=== PATIENT | female | born 1975 | race Caucasian/White ===

== ENCOUNTER 2019-07-12 16:06 | Emergency (ER) | payer MEDICARE, MEDICAID ==
[~2019-07-12] VITALS: Ht 175 cm; Wt 159.0 kg
[2019-07-12 16:41] LABS: CLARITY,URINE CLEAR; COLOR,URINE AMBER; GLUCOSE, URINE (UA) NEGATIVE (NEGATIVE); KETONES,URINE NEGATIVE (NEGATIVE); LEUKOCYTE ESTERASE ,URINE 1+ (NEGATIVE); NITRITE,URINE NEGATIVE (NEGATIVE); PH,URINE 5 (5-9); PROTEIN,URINE 1+ (NEGATIVE); UROBILINOGEN,URINE 8 MG/DL (NORMAL)
[2019-07-12] MEDS ORDERED: ORPHENADRINE 60 MG/2 ML (NORFLEX) AMP IM ONE (16:45)
[2019-07-12] MEDS ORDERED: KETOROLAC 30 MG/ML VIAL IM ONE (16:45)
[2019-07-12 16:49] LABS: BILIRUBIN,URINE 1+ (NEGATIVE)
[2019-07-12 16:50] LABS: BACTERIA,URINE NEGATIVE /HPF; WBC,URINE 0-2 /HPF
--- NOTE | 2019-07-12 16:56 | NUR ---
Both IM shots administered in the left delt per pts request.
--- NOTE | 2019-07-12 17:17 | ED Back Pain ---
General Chief Complaint: Back Problems Stated Complaint: BACK PAIN Nursing Triage Note: Pt to triage with C/O lower back pain that started today. Pt reports taking ibuprofen and tylenol for the pain, pain unrelieved. Pt has Hx of kidney stones and several back surgeries. Pt denies any trouble/burning urination. Nursing Sepsis Screen: No Definite Risk Source of Information: Patient Exam Limitations: No Limitations History of Present Illness Date Seen by Provider: Jul 12, 2019 Time Seen by Provider: 16:32 Initial Comments This 44-year-old woman presents to the emergency room with complaints of exacerbation of chronic lower back pain and headache. She has had multiple spine surgeries. Pain is in the lower back. She denies any bowel or bladder dysfunction. She is ambulatory. She reports being able to come off pain medications about 5 years ago when she lost weight with lap band. She has tried Tylenol and ibuprofen at home without any significant improvement in pain. She currently has no primary care provider. Allergies and Home Medications Allergies Coded Allergies: Iodinated Contrast Media (Verified Allergy, Unknown, 07/12/19) aspirin (Verified Allergy, Unknown, 07/12/19) clindamycin (Verified Allergy, Unknown, 07/12/19) Home Medications Cyclobenzaprine HCl 10 Mg Tablet, 10 MG PO Q8H PRN for SPASMS Prescribed by: AMAN DRISCOLL on 07/12/19 1724 Hydrocodone Bit/Acetaminophen 1 Tab Tab, 1 EACH PO Q4-6HR PRN for PAIN-MODERATE Prescribed by: AMAN DRISCOLL on 07/12/19 1724 Patient Home Medication List Home Medication List Reviewed: Yes Review of Systems Constitutional: no symptoms reported EENTM: no symptoms reported Respiratory: no symptoms reported Cardiovascular: no symptoms reported Gastrointestinal: no symptoms reported Genitourinary: no symptoms reported : No Musculoskeletal: see HPI Skin: no symptoms reported Psychiatric/Neurological: No Symptoms Reported Past Lylkhhl-Vrytct-Uvvawj Hx Past Med/Social Hx: Reviewed and Corrections made Patient Social History Alcohol Use: Denies Use Recreational Drug Use: No Smoking Status: Former Smoker Type Used: Cigarettes Former Smoker, Quit: March 01, 2017 2nd Hand Smoke Exposure: No Recent Foreign Travel: No Contact w/Someone Who Travel: No Recent Infectious Disease Expo: No Recent Hopitalizations: No Physical Abuse: No Sexual Abuse: No Mistreated: No Fear: No Seasonal Allergies Seasonal Allergies: No Past Medical History Surgeries: Yes Abdominal (lap band), Section, Ear Surgery, Gallbladder, Orthopedic (multiple spine surgeries, debridement of operative site infection), Tonsillectomy Respiratory: No Cardiac: No Neurological: No Genitourinary: Yes Kidney Stones Gastrointestinal: No Musculoskeletal: Yes Chronic Back Pain Endocrine: No HEENT: No Cancer: No Psychosocial: No Integumentary: No Blood Disorders: No Physical Exam Vital Signs Vital Signs - First Documented 07/12/19 16:21 Temp 36.9 Pulse 110 Resp 18 B/P (MAP) 190/128 (148) Pulse Ox 98 O2 Delivery Room Air Capillary Refill : Less Than 3 Seconds Height, Weight, BMI Height: '" Weight: lbs. oz. 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 Norm as Tested Skin: Normal Color, Warm/Dry Progress/Results/Core Measures Results/Orders Lab Results Laboratory Tests Test 07/12/19 16:19 Range/Units Urine Color TRACY H Urine Clarity CLEAR Urine pH 5 5-9 Urine Specific [place] 1.020 1.016-1.022 Urine Protein 1+ H NEGATIVE Urine Glucose (UA) NEGATIVE NEGATIVE Urine Ketones NEGATIVE NEGATIVE Urine Nitrite NEGATIVE NEGATIVE Urine Bilirubin 1+ H NEGATIVE Urine Urobilinogen 8 H NORMAL MG/DL Urine Leukocyte Esterase 1+ H NEGATIVE Urine RBC (Auto) NEGATIVE NEGATIVE Urine RBC NONE /HPF Urine WBC 0-2 /HPF Urine Squamous Epithelial Cells 2-5 /HPF Urine Crystals NONE /LPF Urine Bacteria NEGATIVE /HPF Urine Casts NONE /LPF Urine Mucus SMALL H /LPF Urine Culture Indicated NO My Orders Orders - AMAN ROBERTSON MD Ua Culture If Indicated (07/12/19 16:32) Ketorolac Injection (Toradol Injection) (07/12/19 16:45) Orphenadrine Injection (Norflex Injectio (07/12/19 16:45) Methylprednisolone Acetate Inj (Depo-Med (07/12/19 17:30) Hydrocodone/Apap 5/325 Tablet (Lortab 5 (07/12/19 17:30) Medications Given in ED Current Medications Medications Dose Ordered Sig/Onel Route Start Time Stop Time Status Last Admin Dose Admin Acetaminophen/ Hydrocodone Bitart 1 tab ONCE ONCE PO 07/12/19 17:30 07/12/19 17:31 DC 07/12/19 17:35 1 TAB Ketorolac Tromethamine 30 mg ONCE ONCE IM 07/12/19 16:45 07/12/19 16:46 DC 07/12/19 16:56 30 MG Methylprednisolone Acetate 80 mg ONCE ONCE IM 07/12/19 17:30 07/12/19 17:31 DC 07/12/19 17:36 80 MG Orphenadrine Citrate 30 mg ONCE ONCE IM 07/12/19 16:45 07/12/19 16:46 DC 07/12/19 16:55 30 MG Vital Signs/I&O 07/12/19 07/12/19 16:21 17:38 Temp 36.9 36.9 Pulse 110 110 Resp 18 18 B/P (MAP) 190/128 (148) 190/128 (148) Pulse Ox 98 98 O2 Delivery Room Air Blood Pressure Mean: 148 Progress Progress Note : Progress Note Patient was treated with Toradol and Norflex with some improvement. She reports muscle relaxers have worked fairly well for her in the past. She is reluctant to take prednisone due to history of stomach upset with prednisone use. She elects to have a steroid injection instead. Depo-Medrol 80 mg IM was administered. A hydrocodone tablet was given before dismissal for further treatment of her pain. See discharge instructions. Departure Impression Primary Impression: Lower back pain Qualified Codes: M54.5 - Low back pain Disposition: 01 HOME, SELF-CARE Condition: Improved Departure-Patient Inst. Decision time for Depature: 17:22 Referrals: NO,LOCAL PHYSICIAN (PCP/Family) Primary Care Physician Patient Instructions: Low Back Pain in Adults Add. Discharge Instructions: You may continue using ibuprofen up to 600 mg every 6 hours as needed for primary pain control. Take with food or milk and possibly an antacid medication such as omeprazole or Pepcid to prevent stomach irritation. Use the minimal amount necessary to treat your acute pain. Excessive or prolonged use of ibuprofen may cause serious stomach irritation. Add either hydrocodone or Tylenol for pain not controlled by ibuprofen. You may use cyclobenzaprine as prescribed for muscle tension or spasms. Follow-up with a primary care provider and/or your spine surgeon as soon as possible Gentle heat on your lower back may help your muscles relax. Work toward weight loss to reduce strain on your back. Return to the emergency room promptly if you develop worsening symptoms that may include weakness of the legs, numbness in your groin, loss of control of your bowels or bladder, or pain not controlled by the above treatment. All discharge instructions reviewed with patient and/or family. Voiced understanding. Scripts Cyclobenzaprine HCl (Cyclobenzaprine HCl) 10 Mg Tablet 10 MG PO Q8H PRN for SPASMS, #10 TAB 0 Refills Prov: AMAN ROBERTSON MD 07/12/19 Hydrocodone Bit/Acetaminophen (Hydrocodone/Acetaminophen 5/325mg Tablet) 1 Tab Tab 1 EACH PO Q4-6HR PRN for PAIN-MODERATE MDD 10, #10 TAB Prov: AMAN ROBERTSON MD 07/12/19 AMAN ROBERTSON MD Jul 12, 2019 17:17
[2019-07-12] MEDS ORDERED: CYCL10TA9 PO (17:24)
[2019-07-12] MEDS ORDERED: ACHD5005 PO (17:24)
[2019-07-12] MEDS ORDERED: methylPREDNISolone 80 MG/ML (DEPO MEDROL) VIAL IM ONE (17:30)
[2019-07-12] MEDS ORDERED: HYDROcodone/APAP 5 MG/325 MG (LORTAB) TAB PO ONE (17:30)
[2019-07-12 17:38] VITALS: BP 190/128
== END 2019-07-12 17:38 | disposition home or self-care (01) ==
LOC: ER 16:09 → EDSEX 16:09 → ER 17:38
DX: M54.5 Low back pain (principal); Z90.89 Acquired absence of other organs; Z98.890 Other specified postprocedural states; Z87.891 Personal history of nicotine dependence; Z87.442 Personal history of urinary calculi; Z91.041 Radiographic dye allergy status; Z88.6 Allergy status to analgesic agent; Z88.1 Allergy status to other antibiotic agents
CPT/HCPCS: 81000; 96372; 99284

== ENCOUNTER 2019-08-24 18:56 | Emergency (ER) | payer MEDICARE, MEDICAID ==
[~2019-08-24] VITALS: Ht 175 cm; Wt 158.0 kg
[~2019-08-24 18:56] MED LIST: ACHD5005 PO; CYCL10TA9 PO
--- NOTE | 2019-08-24 19:52 | ED Lower Extremity ---
General Chief Complaint: Lower Extremity Stated Complaint: L KNEE PAIN Nursing Triage Note: fell today around 1400 on left knee, c/o pain and swelling throughout knee joint. Nursing Sepsis Screen: No Definite Risk Source: patient Exam Limitations: no limitations History of Present Illness Date Seen by Provider: Aug 24, 2019 Time Seen by Provider: 19:51 Initial Comments To ER with reports of left knee pain after she fell on it at about 2 PM this afternoon. No fever no chills she's had difficulty with walking since because of pain. She is able to extend it without much pain with flexing and causes quite a bit of pain. Onset: just prior to arrival Severity: moderate Pain/Injury Location: left knee Method of Injury: fell Modifying Factors: Worse With Movement Allergies and Home Medications Allergies Coded Allergies: Iodinated Contrast Media (Verified Allergy, Unknown, 07/12/19) aspirin (Verified Allergy, Unknown, 07/12/19) clindamycin (Verified Allergy, Unknown, 07/12/19) Home Medications Cyclobenzaprine HCl 10 Mg Tablet, 10 MG PO Q8H PRN for SPASMS Prescribed by: AMAN DRISCOLL on 07/12/19 1724 Hydrocodone Bit/Acetaminophen 1 Tab Tab, 1 EACH PO Q4-6HR PRN for PAIN-MODERATE Prescribed by: AMAN DRISCOLL on 07/12/19 1724 Naproxen 500 Mg Tablet, 500 MG PO BID PRN for PAIN-SEVERE (8-10) Prescribed by: ROMARIO DOWELL on 08/24/192002 Patient Home Medication List Home Medication List Reviewed: Yes Review of Systems Constitutional: see HPI EENTM: see HPI Respiratory: no symptoms reported Cardiovascular: no symptoms reported Genitourinary: no symptoms reported Musculoskeletal: see HPI Skin: no symptoms reported Psychiatric/Neurological: No Symptoms Reported Past Gslwsvw-Wyvczr-Bzkqao Hx Patient Social History Alcohol Use: Denies Use Recreational Drug Use: No Smoking Status: Former Smoker Type Used: Cigarettes Former Smoker, Quit: March 01, 2017 2nd Hand Smoke Exposure: No Recent Foreign Travel: No Contact w/Someone Who Travel: No Recent Infectious Disease Expo: No Recent Hopitalizations: No Physical Abuse: No Sexual Abuse: No Mistreated: No Fear: No Seasonal Allergies Seasonal Allergies: No Past Medical History Surgeries: Yes Abdominal, Section, Ear Surgery, Gallbladder, Orthopedic, Tonsillectomy Respiratory: No Cardiac: No Neurological: No Genitourinary: Yes Kidney Stones Gastrointestinal: No Musculoskeletal: Yes Chronic Back Pain Endocrine: No HEENT: No Cancer: No Psychosocial: No Integumentary: No Blood Disorders: No Physical Exam Vital Signs Vital Signs - First Documented 08/24/19 19:04 Temp 36.7 Pulse 85 Resp 20 B/P (MAP) 184/100 (128) Pulse Ox 100 Capillary Refill : Less Than 3 Seconds Height, Weight, BMI Height: '" Weight: lbs. oz. kg; 51.00 BMI Method: General Appearance: WD/WN, no apparent distress, obese (knee exam is difficult due to body habitus) HEENT: PERRL/EOMI, normal ENT inspection Respiratory: no respiratory distress, no accessory muscle use Hips: bilateral hip non-tender, bilateral hip normal inspection, bilateral hip normal range of motion Legs: bilateral leg non-tender, bilateral leg normal inspection, bilateral leg normal range of motion Knees: left knee other (there is some palpable swelling just anterior to the patella. No ecchymosis) Ankles: bilateral ankle non-tender, bilateral ankle normal inspection, bilateral ankle normal range of motion Feet: bilateral foot non-tender, bilateral foot normal inspection, bilateral foot normal range of motion Neurologic/Psychiatric: alert, normal mood/affect, oriented x 3 Skin: normal color, warm/dry Progress/Results/Core Measures Results/Orders My Orders Orders - ROMARIO DOWELL STAFF TOXICOLOGIST Knee, Left, 3 Views (08/24/19 19:30) Hydrocodone/Apap 5/325 Tablet (Lortab 5 (08/24/19 20:00) Medications Given in ED Current Medications Medications Dose Ordered Sig/Onel Route Start Time Stop Time Status Last Admin Dose Admin Acetaminophen/ Hydrocodone Bitart 1 tab ONCE ONCE PO 08/24/19 20:00 08/24/19 20:01 DC 08/24/19 19:57 1 TAB Vital Signs/I&O 08/24/19 19:04 Temp 36.7 Pulse 85 Resp 20 B/P (MAP) 184/100 (128) Pulse Ox 100 Blood Pressure Mean: 128 POS Diagnostic Imaging Diagonstic Imaging: Xray Comments NAME: SOFYA SAMANIEGO [facility] REC#: [id number] PT STATUS: REG ER : 1975 PHYSICIAN: ROMARIO DOWELL APRN ADMIT DATE: 08/24/19/ER Draft POSDate of Exam:08/24/19 KNEE, LEFT, 3 VIEWS CLINICAL HISTORY: Fell on left knee tonight. Pain along the lateral aspect of the left knee. COMPARISON: None TECHNIQUE: 3 views of the left knee. FINDINGS: There is no acute fracture or dislocation of the left knee. Alignment is anatomic. The imaged joint spaces are preserved. No joint effusion is seen in the left knee. The surrounding soft tissues are unremarkable. IMPRESSION: 1. No acute fracture or dislocation in the left knee. Dictated on workstation # [id number] Dict: 08/24/191952 Trans: 08/24/[address] [facility] [id number] Interpreted by: GISELE SMITH DO Electronically signed by: Departure Impression Primary Impression: Contusion of knee Qualified Codes: S80.02XA - Contusion of left knee, initial encounter Disposition: HOME, SELF-CARE Condition: Stable Departure-Patient Inst. Decision time for Depature: 19:54 Referrals: NO,LOCAL PHYSICIAN (PCP/Family) Primary Care Physician Patient Instructions: Contusion (DC) Add. Discharge Instructions: 1. Return to ER for any concerns 2. Ice pack to the knee 3. Pain medication as directed 4. If pain persists, follow-up with your doctor next week to discuss further imaging such as an MRI. All discharge instructions reviewed with patient and/or family. Voiced understanding. Scripts Hydrocodone/Acetaminophen (Benson 5-325 Tablet) 1 Each Tablet 1 TAB PO Q6H for Pain MDD 10 TABS for 7 Days, #10 TAB Prov: ROMARIO DOWELL APRN 08/24/19 Naproxen (Naprosyn) 500 Mg Tablet 500 MG PO BID PRN for PAIN-SEVERE (8-10), #30 TAB 0 Refills Prov: ROMARIO DOWELL APRN 08/24/19 Work/School Note: Work Release Form Date Seen in the Emergency Department: Aug 24, 2019 Return to Work: Aug 25, 2019 ROMARIO DOWELL APRN Aug 24, 2019 19:52 POS
--- NOTE | 2019-08-24 19:56 | Diagnostic Imaging Report ---
CLINICAL HISTORY: Fell on left knee tonight. Pain along the lateral aspect of the left knee. COMPARISON: None TECHNIQUE: 3 views of the left knee. FINDINGS: There is no acute fracture or dislocation of the left knee. Alignment is anatomic. The imaged joint spaces are preserved. No joint effusion is seen in the left knee. The surrounding soft tissues are unremarkable. IMPRESSION: 1. No acute fracture or dislocation in the left knee. Dictated by: Dictated on workstation # [id number]
[2019-08-24] MEDS ORDERED: HYDROcodone/APAP 5 MG/325 MG (LORTAB) TAB PO ONE (20:00)
[2019-08-24] MEDS ORDERED: HYDR-4226 PO ×2 (20:01→20:07)
[2019-08-24] MEDS ORDERED: NAPR-1071 PO (20:03)
[2019-08-24 20:08] VITALS: BP 165/99
== END 2019-08-24 20:08 | disposition home or self-care (01) ==
LOC: EDUNIT# 18:56 → ER 18:57
DX: S80.02XA Contusion of left knee, initial encounter (principal); Z88.6 Allergy status to analgesic agent; Z88.1 Allergy status to other antibiotic agents; Z91.041 Radiographic dye allergy status; Z87.891 Personal history of nicotine dependence; Z90.89 Acquired absence of other organs; Z87.442 Personal history of urinary calculi; W19.XXXA Unspecified fall, initial encounter
CPT/HCPCS: 73562

== ENCOUNTER 2019-09-18 16:49 | Emergency (ER) | payer MEDICARE, MEDICAID ==
[~2019-09-18] VITALS: Ht 175 cm; Wt 159.0 kg
[~2019-09-18 16:49] MED LIST changes: +HYDR-4226 PO; +NAPR-1071 PO
[2019-09-18] MEDS ORDERED: PENI500T PO (17:13)
[2019-09-18] MEDS ORDERED: HYDR-3455 PO (17:14)
--- NOTE | 2019-09-18 17:14 | ED EENT ---
History of Present Illness General Chief Complaint: Dental Problems/Pain Stated Complaint: TOOTH PAIN Nursing Triage Note: RIGHT SIDED DENTAL PAIN. STATE SHE HAD HEAT TO THE AREA AND SHE SQUEEZED HER FACE AND FELT A POP AND WAS ABLE TO TASTE THE FLUID. THINKS THE AREA IS FILLING BACK UP. Source: patient Exam Limitations: no limitations History of Present Illness Date Seen by Provider: Sep 18, 2019 Time Seen by Provider: 17:09 Initial Comments This 44-year-old white female presents with dental caries. Patient has had substantial dental caries to her lower teeth. She is now again able to use her insurance and is planning on having the mandibular teeth extracted and dentures made. Patient denies photophobia or stiff neck. She is able to handle her secretions without difficulty. Allergies and Home Medications Allergies Coded Allergies: Iodinated Contrast Media (Verified Allergy, Unknown, 07/12/19) aspirin (Verified Allergy, Unknown, 07/12/19) clindamycin (Verified Allergy, Unknown, 07/12/19) Home Medications No Active Prescriptions or Reported Meds Patient Home Medication List Home Medication List Reviewed: Yes Review of Systems Review of Systems Constitutional: No chills, No fever Eyes: Denies Blurred Vision Ears: Denies Dizziness Nose: denies clots Mouth: other (dental caries) Throat: denies neck stiffness, denies hoarse Respiratory: No cough Cardiovascular: No chest pain Gastrointestinal: no symptoms reported Musculoskeletal: no symptoms reported Skin: no symptoms reported Neurological: No Symptoms Reported Hematologic/Lymphatic: No Symptoms Reported Immunological/Allergic: no symptoms reported Past Hnttthi-Mtjjjq-Prpxup Hx Past Med/Social Hx: Reviewed Nursing Past Med/Soc Hx Patient Social History Alcohol Use: Denies Use Recreational Drug Use: No Smoking Status: Former Smoker Type Used: Cigarettes Former Smoker, Quit: March 01, 2017 2nd Hand Smoke Exposure: No Recent Foreign Travel: No Contact w/Someone Who Travel: No Recent Infectious Disease Expo: No Recent Hopitalizations: No Seasonal Allergies Seasonal Allergies: No Past Medical History Surgeries: Yes Abdominal, Section, Ear Surgery, Gallbladder, Orthopedic, Tonsillectomy Respiratory: No Cardiac: No Neurological: No : No Last Menstrual Period: Aug 19, 2019 Genitourinary: Yes Kidney Stones Gastrointestinal: No Musculoskeletal: Yes Chronic Back Pain Endocrine: No HEENT: No Cancer: No Psychosocial: No Integumentary: No Blood Disorders: No Physical Exam Vital Signs Vital Signs - First Documented 09/18/19 16:57 Temp 36.7 Pulse 89 Resp 16 B/P (MAP) 136/84 (101) Pulse Ox 100 O2 Delivery Room Air Height, Weight, BMI Height: '" Weight: lbs. oz. kg; 51.00 BMI Method: General Appearance: WD/WN, mild distress Eyes: bilateral eye normal inspection Ears: bilateral ear auricle normal Nose: normal inspection Mouth/Throat: other (diffusely carries to the mandible) Neck: non-tender, supple Cardiovascular: regular rate, rhythm Respiratory: lungs clear Gastrointestinal: normal bowel sounds Neurologic/Psychiatric: no motor/sensory deficits, alert Skin: normal color, warm/dry Progress/Results/Core Measures Results/Orders Vital Signs/I&O 09/18/19 16:57 Temp 36.7 Pulse 89 Resp 16 B/P (MAP) 136/84 (101) Pulse Ox 100 O2 Delivery Room Air Blood Pressure Mean: 101 POS Progress Progress Note : Time: 17:11 Progress Note Discussed findings with patient. We agreed on a course of Pen-Vee K and Vicodin. Patient will follow up with her dentist on Friday for treatment of her caries. She was asked call or return if any problems or questions Departure Impression Primary Impression: Dental caries Disposition: HOME, SELF-CARE Condition: Unchanged Departure-Patient Inst. Decision time for Depature: 17:12 Referrals: NO,LOCAL PHYSICIAN (PCP) Primary Care Physician Patient Instructions: Dental Pain (DC) Add. Discharge Instructions: Pen-Vee K and Vicodin as prescribed. Follow-up with your dentist on Friday. Return if any problems or questions. All discharge instructions reviewed with patient and/or family. Voiced understanding. Scripts Hydrocodone/Acetaminophen (Vicodin 5-300 mg Tablet) 1 Each Tablet 1-2 EACH PO Q6H PRN for PAIN-MODERATE MDD 10 for 7 Days, #20 TAB Prov: DOUG TINAJERO MD 09/18/19 Penicillin V Potassium (Penicillin V Potassium) 500 Mg Tablet 500 MG PO QID for 10 Days, TAB Prov: DOUG TINAJERO MD 09/18/19 DOUG TINAJERO MD Sep 18, 2019 17:14 POS
[2019-09-18 17:16] VITALS: BP 136/84
--- OUTSIDE RECORDS SUMMARY | 2019-10-14 13:28 | XMS REPORT | Continuity of Care Document ---
Author Organization Unknown Address Unknown Phone Unavailable Allergies Active Description Code Type Severity Reaction Onset Reported/Identified Relationship to Patient Clinical Status Yes aspirin [id number] Drug Allergy Unknown N/A 07/12/2019 Yes clindamycin [id number] Drug Aller gy Unknown N/A 07/12/2019 Yes Iodinated Contrast Media [id number] Drug Allergy Unknown N/A 07/12/2019 Medications There is no data. Problems Date Dx Coded Attending Type Code Diagnosis Diagnosed By 07/12/2019 AMAN ROBERTSON MD, Ot M54.5 LOW BACK PAIN 07/12/2019 AMAN ROBERTSON MD Ot Z87.442 PERSONAL HISTORY OF URINARY CALCULI 07/12/2019 AMAN ROBERTSON MD Ot Z87.891 PERSONAL HISTORY OF NICOTINE DEPENDENCE 07/12/2019 AMAN ROBERTSON MD Ot Z88.1 ALLERGY STATUS TO OTHER ANTIBIOTIC AGENT 07/12/2019 AMAN ROBERTSON MD Ot Z88.6 ALLERGY STATUS TO ANALGESIC AGENT STATUS 07/12/2019 AMAN ROBERTSON MD Ot Z90.89 ACQUIRED ABSENCE OF OTHER ORGANS 07/12/2019 AMAN ROBERTSON MD Ot Z91.041 RADIOGRAPHIC DYE ALLERGY STATUS 07/12/2019 AMAN ROBERTSON MD Ot Z98.890 OTHER SPECIFIED POSTPROCEDURAL STATES 07/14/2019 AMAN ROBERTSON MD, Ot M54.5 LOW BACK PAIN 07/14/2019 AMAN ROBERTSON MD Ot Z87.442 PERSONAL HISTORY OF URINARY CALCULI 07/14/2019 AMAN ROBERTSON MD Ot Z87.891 PERSONAL HISTORY OF NICOTINE DEPENDENCE 07/14/2019 AMAN ROBERTSON MD Ot Z88.1 ALLERGY STATUS TO OTHER ANTIBIOTIC AGENT 07/14/2019 AMAN ROBERTSON MD Ot Z88.6 ALLERGY STATUS TO ANALGESIC AGENT STATUS 07/14/2019 AILYN JASSO, AMAN Aldrich Ot Z90.89 ACQUIRED ABSENCE OF OTHER ORGANS 07/14/2019 AILYN JASSO, AMAN Aldrich Ot Z91.041 RADIOGRAPHIC DYE ALLERGY STATUS 07/14/2019 AILYN JASSO, AMAN Aldrich Ot Z98.890 OTHER SPECIFIED POSTPROCEDURAL STATES 08/24/2019 ROMARIO DOWELL H[employer] TRAINEE Ot M25.562 PAIN IN LEFT KNEE 08/24/2019 ROMARIO DOWELL H[employer] TRAINEE Ot S80.02XA CONTUSION OF LEFT KNEE, INITIAL ENCOUNTE 08/24/2019 ROMARIO DOWELL H[employer] TRAINEE Ot W19.XXXA UNSPECIFIED FALL, INITIAL ENCOUNTER 08/24/2019 ROMARIO DOWELL APRN Ot Z87.442 PERSONAL HISTORY OF URINARY CALCULI 08/24/2019 ROMARIO DOWELL [employer] TRAINEE Ot Z87.891 PERSONAL HISTORY OF NICOTINE DEPENDENCE 08/24/2019 ROMARIO DOWELL APRN Ot Z88 .1 ALLERGY STATUS TO OTHER ANTIBIOTIC AGENT 08/24/2019 ROMARIO DOWELL APRN Ot Z88 .6 ALLERGY STATUS TO ANALGESIC AGENT STATUS 08/24/2019 ROMARIO DOWELL APRN Ot Z90.89 ACQUIRED ABSENCE OF OTHER ORGANS 08/24/2019 ROMARIO DOWELL APRN Ot Z91.041 RADIOGRAPHIC DYE ALLERGY STATUS 09/18/2019 DOUG TINAJERO MD Ot K02. 9 DENTAL CARIES, UNSPECIFIED 09/18/2019 DOUG TINAJERO MD Ot K08. 89 OTHER SPECIFIED DISORDERS OF TEETH AND S 09/18/2019 DOUG TINAJERO MD Ot Z87.442 PERSONAL HISTORY OF URINARY CALCULI 09/18/2019 DOUG TINAJERO MD Ot Z87.891 PERSONAL HISTORY OF NICOTINE DEPENDENCE 09/18/2019 DOUG TINAJERO MD Ot Z88. 1 ALLERGY STATUS TO OTHER ANTIBIOTIC AGENT 09/18/2019 DOUG TINAJERO MD Ot Z88. 6 ALLERGY STATUS TO ANALGESIC AGENT STATUS 09/18/2019 DOUG TINAJERO MD Ot Z90. 89 ACQUIRED ABSENCE OF OTHER ORGANS 09/18/2019 DOUG TINAJERO MD Ot Z91.041 RADIOGRAPHIC DYE ALLERGY STATUS 09/22/2019 DOUG TINAJERO MD Ot K02. 9 DENTAL CARIES, UNSPECIFIED 09/22/2019 DOUG TINAJERO MD Luis Ot K08. 89 OTHER SPECIFIED DISORDERS OF TEETH AND S 09/22/2019 TANVI JASSO DOUG Smith Ot Z87.442 PERSONAL HISTORY OF URINARY CALCULI 09/22/2019 TANVI JASSO DOUG Luis Ot Z87.891 PERSONAL HISTORY OF NICOTINE DEPENDENCE 09/22/2019 TANVI JASSO DOUG Smith Ot Z88. 1 ALLERGY STATUS TO OTHER ANTIBIOTIC AGENT 09/22/2019 TANVI JASSO DOUG Luis Ot Z88. 6 ALLERGY STATUS TO ANALGESIC AGENT STATUS 09/22/2019 TANVI JASSO DOUG Smith Ot Z90. 89 ACQUIRED ABSENCE OF OTHER ORGANS 09/22/2019 TANVI JASSO DOUG Smith Ot Z91.041 RADIOGRAPHIC DYE ALLERGY STATUS Procedures There is no data. Results Test Result Range Complete urinalysis with reflex to cultu re - 07/12/19 16:19 Urine color determination TRACY NRG Urine clarity determination CLEAR NR G Urine pH measurement by test strip 5 5-9 Specific gravity of urine by test strip 1.020 1.016-1.022 Urine protein assay by test strip, semi-quantitative 1+ NEGATIVE Urine glucose detection by automated test strip NE GATIVE NEGATIVE Erythrocytes detection in urine sediment by light micr oscopy NEGATIVE NEGATIVE Urine ketones detection by automated test strip NE GATIVE NEGATIVE Urine nitrite detection by test strip NEGATIVE NEGATIVE Urine total bilirubin detection by test strip 1+ NEGATIVE Urine urobilinogen measurement by automated test strip (mass/volume) 8 mg/dL NORMAL Urine leukocyte esterase detection by dipstick 1+ NEGATIVE Automated urine sediment erythrocyte cou nt by microscopy (number/high power field) NONE NRG Automated urine sediment leukocyte count by microscopy (number/high power field) [HPF] NRG Bacteria detection in urine sediment by light microsco py NEGATIVE NRG Squamous epithelial cells detection in u rine sediment by light microscopy 2-5 NRG Crystals detection in urine sediment by light microsco py NONE NRG Casts detection in urine sediment by light microscopy NONE NRG Mucus detection in urine sediment by light microscopy SMALL NRG Complete urinalysis with reflex to culture NO NRG Encounters ACCT No. Visit Date/Time Discharge Status Pt. Type Provider Facility Loc./Unit Complaint [id number] 09/18/2019 16:50:00 019 17:16:00 DIS Emergency DOUG TINAJERO MD [facility] ER TOOTH PAIN [id number] 08/24/2019 18:57:00 019 20:08:00 DIS Emergency ROMARIO DOWELL APRN [facility] ER L KNEE PAIN [id number] 07/12/2019 16:09:00 019 17:38:00 DIS Emergency AILYN JASSO, AMAN Aldrich [facility] ER BACK PAIN
== END 2019-09-18 17:16 | disposition home or self-care (01) ==
LOC: EDUNIT# 16:49 → ER 16:50
DX: K02.9 Dental caries, unspecified (principal); Z88.6 Allergy status to analgesic agent; Z88.1 Allergy status to other antibiotic agents; Z91.041 Radiographic dye allergy status; Z87.891 Personal history of nicotine dependence; Z90.89 Acquired absence of other organs; Z87.442 Personal history of urinary calculi
CPT/HCPCS: 99282

== ENCOUNTER 2019-11-01 19:49 | Emergency (ER) | payer MEDICARE, MEDICAID ==
[~2019-11-01] VITALS: Ht 175 cm; Wt 159.0 kg
[~2019-11-01 19:49] MED LIST changes: +HYDR-3455 PO; +PENI500T PO
[2019-11-01] MEDS ORDERED: diphenhydrAMINE 50 MG/ML INJ (BENADRYL) IVP ONE (20:00)
[2019-11-01] MEDS ORDERED: LORATADINE (CLARITIN) 10 MG TAB PO ONE (20:00)
[2019-11-01] MEDS ORDERED: FAMOTIDINE 20MG/2ML IV (PEPCID) IVP ONE (20:00)
[2019-11-01] MEDS ORDERED: EPINEPHrine INJECTION 1 MG/ML AMP IM ONE (20:00)
[2019-11-01] MEDS ORDERED: ONDANSETRON 4 MG/2 ML (SDV) Z0FRAN ONE (20:01)
--- NOTE | 2019-11-01 20:01 | ED EENT ---
History of Present Illness General Stated Complaint: TOOK ASPIRIN ALLERGIC TO IT Source: patient Exam Limitations: no limitations History of Present Illness Date Seen by Provider: Nov 01, 2019 Time Seen by Provider: 19:50 Initial Comments Patient presents to ER by private conveyance from home with chief complaint about 25 minutes prior to arrival she took some [place] which had aspirin in it. 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 She's having difficulty swallowing but no difficulty breathing yet but she says it's imminent. She is not having any wheezing. She also has allergies to clindamycin and IV dye. She denies any nausea chest pain shortness of breath wheezing fever chills cough or diarrhea. Allergies and Home Medications Allergies Coded Allergies: Iodinated Contrast Media (Verified Allergy, Unknown, 07/12/19) aspirin (Verified Allergy, Unknown, 07/12/19) clindamycin (Verified Allergy, Unknown, 07/12/19) Home Medications Hydrocodone/Acetaminophen 1 Each Tablet, 1-2 EACH PO Q6H PRN for PAIN-MODERATE Prescribed by: DOUG TINAJERO MD on 09/18/191713 Penicillin V Potassium 500 Mg Tablet, 500 MG PO QID Prescribed by: DOUG TINAJERO MD on 09/18/19 1713 Patient Home Medication List Home Medication List Reviewed: Yes Review of Systems Review of Systems Constitutional: No chills, No diaphoresis Eyes: Denies Blindness, Denies Drainage Ears: Denies Dizziness, Denies Pain Nose: denies clots, denies congestion Mouth: see HPI, swelling Throat: denies pain; swelling Respiratory: No cough, No short of breath, No stridor, No wheezing Cardiovascular: No chest pain, No edema Gastrointestinal: No abdominal pain, No nausea, No vomiting Neurological: Denies Anxiety, Denies Depressed All Other Systems Reviewed Negative Unless Noted: Yes Past Qbqehmp-Actlds-Qetxjn Hx Patient Social History Alcohol Use: Denies Use Recreational Drug Use: No Smoking Status: Former Smoker Type Used: Cigarettes Former Smoker, Quit: March 01, 2017 2nd Hand Smoke Exposure: No Recent Foreign Travel: No Contact w/Someone Who Travel: No Recent Hopitalizations: No Seasonal Allergies Seasonal Allergies: No Past Medical History Surgeries: Yes Abdominal, Section, Ear Surgery, Gallbladder, Orthopedic, Tonsillectomy Respiratory: No Cardiac: No Neurological: No Genitourinary: Yes Kidney Stones Gastrointestinal: No Musculoskeletal: Yes Chronic Back Pain Endocrine: No HEENT: No Cancer: No Psychosocial: No Integumentary: No Blood Disorders: No Physical Exam Vital Signs Vital Signs - First Documented 11/01/19 19:49 Temp 36.7 Pulse 89 Resp 17 B/P (MAP) 192/90 (124) Pulse Ox 100 O2 Delivery Room Air Height, Weight, BMI Height: '" Weight: lbs. oz. kg; 51.00 BMI Method: General Appearance: mild distress, obese Eyes: bilateral eye normal inspection, bilateral eye PERRL, bilateral eye EOMI Ears: bilateral ear auricle normal, bilateral ear canal normal Nose: normal inspection; No active bleeding, No discharge Mouth/Throat: other (dentures and swollen tongue without erythema, plaques or stridor) Neck: non-tender, full range of motion, normal inspection Cardiovascular: normal peripheral pulses, regular rate, rhythm Respiratory: lungs clear, normal breath sounds, no respiratory distress, no accessory muscle use Gastrointestinal: normal bowel sounds, non tender Neurologic/Psychiatric: alert, normal mood/affect, oriented x 3 Skin: normal color, warm/dry Progress/Results/Core Measures Results/Orders My Orders Orders - JOSIE DEAL Diphenhydramine Injection (Benadryl Inje (11/01/19 20:00) Loratadine Tablet (Claritin Tablet) (11/01/19 20:00) Famotidine Injection (Pepcid Injection) (11/01/19 20:00) Epinephrine 1 Mg Injection (Adrenalin I (11/01/19 20:00) Ondansetron Injection (Zofran Injectio (11/01/19 20:01) Lorazepam Injection (Ativan Injection) (11/01/19 20:05) Ns Iv 500 Ml (Sodium Chloride 0.9%) (11/01/19 20:05) Ed Iv/Invasive Line Start (11/01/19 20:12) Ns Iv 500 Ml (Sodium Chloride 0.9%) (11/01/19 20:12) Lorazepam Injection (Ativan Injection) (11/01/19 20:15) Ondansetron Injection (Zofran Injectio (11/01/19 20:15) Ekg Tracing (11/01/19 20:14) Continuous Ekg Monitoring (11/01/19 20:14) Medications Given in ED Current Medications Medications Dose Ordered Sig/Onel Route Start Time Stop Time Status Last Admin Dose Admin Diphenhydramine HCl 25 mg ONCE ONCE IVP 11/01/19 20:00 11/01/19 20:01 DC 11/01/19 20:02 25 MG Epinephrine HCl 0.3 mg ONCE ONCE IM 11/01/19 20:00 11/01/19 20:01 DC 11/01/19 20:02 0.3 MG Famotidine 20 mg ONCE ONCE IVP 11/01/19 20:00 11/01/19 20:01 DC 11/01/19 20:05 20 MG Loratadine 10 mg ONCE ONCE PO 11/01/19 20:00 11/01/19 20:01 DC 11/01/19 20:25 10 MG Lorazepam 0.5 mg ONCE ONCE IVP 11/01/19 20:15 11/01/19 20:16 DC 11/01/19 20:09 0.5 MG Ondansetron HCl 8 mg ONCE ONCE IVP 11/01/19 20:15 11/01/19 20:16 DC 11/01/19 20:07 8 MG Sodium Chloride 500 ml @ 0 mls/hr Q0M ONCE IV 11/01/19 20:12 11/01/19 20:14 DC 11/01/19 20:09 500 MLS/HR Vital Signs/I&O 11/01/19 19:49 Temp 36.7 Pulse 89 Resp 17 B/P (MAP) 192/90 (124) Pulse Ox 100 O2 Delivery Room Air Progress Progress Note #1: Time: 19:59 Progress Note Epinephrine IM. Antihistamine blockade using Pepcid, loratadine and Benadryl IV. Progress Note #2: Time: 20:13 Progress Note As the above medications were being pushed the patient began to experience tachycardia shakes and nausea with vomiting. I suspect this is related to the epinephrine. We gave her half a milligram of Ativan and 8 mg of Zofran which controlled her nausea and shortly thereafter her heart rate started to accelerate back down around 100. She was feeling better. We'll plan on watching her a little longer. She says however her tongue feels much smaller and her throat no longer feels it is closing off. We'll give her 500 of saline and obtain an EKG. She has no prior history of coronary or dysrhythmias. Progress Note #3: Time: 21:04 Progress Note Patient is asymptomatic at this time. She has significant improvement in her tongue swelling. She has no difficulty swallowing fluids or breathing. No stridor. Her retropharynx is much more visible on direct examination. She would like to go home. We will send her with a prescription for epinephrine a utoinjector's as well as instructions to continue taking antihistamines for the next week. Initial ECG Impression Date: Nov 01, 2019 Initial ECG Impression Time: 20:19 Initial ECG Rate: 75 Initial ECG Rhythm: Normal Sinus Initial ECG Intervals: Normal Initial ECG Impression: Normal Comment Normal sinus rhythm without ST elevation or depression or other dysrhythmia. Departure Impression Primary Impression: Anaphylaxis Qualified Codes: T78.2XXA - Anaphylactic shock, unspecified, initial encounter Disposition: 01 HOME, SELF-CARE Condition: Stable Departure-Patient Inst. Decision time for Depature: 21:04 Referrals: NO,LOCAL PHYSICIAN (PCP/Family) Primary Care Physician Patient Instructions: Anaphylaxis (DC), Epinephrine Autoinjectors Add. Discharge Instructions: If your symptoms of tongue swelling difficulty breathing or stridor occur then you need to use an autoinjector epinephrine. If your symptoms do not improve in 5-10 minutes then used the second autoinjector on her way to the ER nearest you. For the next week use loratadine/Claritin or cetirizine/Zyrtec 10 mg daily. You should also use Pepcid/famotidine 20 mg twice a day or Zantac/ranitidine 150 mg twice a day for the next week. Finally if you have breakthrough swelling you can use one or 2 tablets of Benadryl every 6 hours. Scripts Famotidine (Acid [employer] (FAMOTIDINE)) 20 Mg Tablet 20 MG PO BID for 30 Days, #60 TAB 0 Refills Prov: JOSIE DEAL 11/01/19 Loratadine (Loratadine) 10 Mg Tablet 10 MG PO DAILY for 30 Days, #30 TAB 0 Refills Prov: JOSIE DEAL 11/01/20 Epinephrine (Epipen 2-Jonathan) 0.3 Mg/0.3 Ml Auto.injct 0.3 MG IJ Q15M PRN for anaphylaxis, #1 EACH 0 Refills Prov: JOSIE DEAL 11/01/19 JOSIE DEAL Nov 01, 2019 20:01
[2019-11-01] MEDS ORDERED: LORazepam INJ 2 MG/ML (ATIVAN) VIAL ONE (20:05)
[2019-11-01] MEDS ORDERED: NS IV 500 ML 500 ML ONE (20:05)
[2019-11-01] MEDS ORDERED: NS IV 500 ML 500 ML IV ONE (20:12)
[2019-11-01] MEDS ORDERED: ONDANSETRON 4 MG/2 ML (SDV) Z0FRAN IVP ONE (20:15)
[2019-11-01] MEDS ORDERED: LORazepam INJ 2 MG/ML (ATIVAN) VIAL IVP ONE (20:15)
--- NOTE | 2019-11-01 20:48 | NUR ---
report recieved from Michelle Henry RN at this time to assume care of pt.
[2019-11-01] MEDS ORDERED: LORA10TA7 PO (21:08)
[2019-11-01] MEDS ORDERED: EPIN0.3P3 IJ (21:08)
[2019-11-01] MEDS ORDERED: FAMO20TA3 PO (21:08)
[2019-11-01 21:26] VITALS: BP 192/90
== END 2019-11-01 21:26 | disposition home or self-care (01) ==
LOC: EDUNIT# 19:49 → ER 19:50
DX: T88.6XXA Anaphylactic reaction due to adverse effect of correct drug or medicament properly administered, initial encounter (principal); T39.015A Adverse effect of aspirin, initial encounter; Z88.6 Allergy status to analgesic agent; Z88.1 Allergy status to other antibiotic agents; Z91.041 Radiographic dye allergy status; Z87.891 Personal history of nicotine dependence; Z90.89 Acquired absence of other organs; Z87.442 Personal history of urinary calculi
CPT/HCPCS: 93005; 96361; 96372; 96374; 96375

== ENCOUNTER 2019-12-06 14:41 | Emergency (ER) | payer MEDICARE, MEDICAID ==
[~2019-12-06] VITALS: Ht 172 cm; Wt 180.0 kg
[~2019-12-06 14:41] MED LIST changes: +EPIN0.3P3 IJ; +FAMO20TA3 PO; +LORA10TA7 PO
--- NOTE | 2019-12-06 15:28 | ED Lower Extremity ---
General Chief Complaint: Lower Extremity Stated Complaint: L LEG PAIN/KNOT Nursing Triage Note: AMB TO ED REPORTS HAS CHRONIC KNEE PAIN HYDROCOCONE NOT HELPING HAS BEEN GETTING INJECTION IN KNEE'S. Nursing Sepsis Screen: No Definite Risk Source: patient History of Present Illness Date Seen by Provider: Dec 06, 2019 Time Seen by Provider: 15:15 Initial Comments PT ARRIVES VIA POV C/O CHRONIC RIGHT KNEE PAIN STATES "IT KEEPS POPPING IN AND OUT" STATES SHE GETS "CORTISONE SHOTS" IN IT ALL THE TIME--NEXT ONE IS ON 12/15/19 STATES SHE TAKES HYDROCODONE 7.5 MG EVERY DAY FOR THIS PROBLEM NO INJURY STATES SHE HAS HAD INCREASED PAIN, AND NOW SWELLING TO THE KNEE, MEDIAL ASPECT OF KNEE, AND TO HER LOWER LEG FOR THE PAST FEW DAYS SEES DR. [place]--LAST APPOINTMENT WAS 1 WEEK AGO FOR THIS SAME PROBLEM--BUT STATES "NOT BAD THEN IT IS NOW" PCP: JUANITO TALAVERA, [place] Allergies and Home Medications Allergies Coded Allergies: Iodinated Contrast Media (Verified Allergy, Unknown, 07/12/19) aspirin (Verified Allergy, Unknown, 07/12/19) clindamycin (Verified Allergy, Unknown, 07/12/19) Home Medications Epinephrine 0.3 Mg/0.3 Ml Auto.injct, 0.3 MG IJ Q15M PRN for anaphylaxis Prescribed by: JOSIE DEAL on 11/01/192107 Famotidine 20 Mg Tablet, 20 MG PO BID Prescribed by: JOSIE DEAL on 11/01/192107 Hydrocodone/Acetaminophen 1 Each Tablet, 1-2 EACH PO Q6H PRN for PAIN-MODERATE Prescribed by: DOUG TINAJERO MD on 09/18/191713 Loratadine 10 Mg Tablet, 10 MG PO DAILY Prescribed by: JOSIE DEAL on 11/01/192107 Penicillin V Potassium 500 Mg Tablet, 500 MG PO QID Prescribed by: DOUG TINAJERO MD on 09/18/191712 Patient Home Medication List Home Medication List Reviewed: Yes Review of Systems Constitutional: no symptoms reported; No chills, No diaphoresis, No fever Respiratory: No short of breath Cardiovascular: No chest pain Musculoskeletal: see HPI Skin: no symptoms reported Psychiatric/Neurological: No Symptoms Reported; Denies Numbness, Denies Paresthesia, Denies Tingling, Denies Weakness Past Rxmewia-Kmjvgr-Mtssts Hx Past Med/Social Hx: Reviewed and Corrections made Patient Social History Alcohol Use: Denies Use Recreational Drug Use: No Smoking Status: Former Smoker Type Used: Cigarettes Former Smoker, Quit: March 01, 2017 2nd Hand Smoke Exposure: No Recent Foreign Travel: No Contact w/Someone Who Travel: No Recent Infectious Disease Expo: No Recent Hopitalizations: No Seasonal Allergies Seasonal Allergies: No Past Medical History Surgeries: Yes (LAP BAND; BACK SURGERY X 3 WITH WOUND DEBRIDEMENTS OF SURGICAL SITE) Abdominal, Section, Ear Surgery, Gallbladder, Orthopedic, Tonsillectomy Respiratory: No Cardiac: No Neurological: No Genitourinary: Yes Kidney Stones Gastrointestinal: No Musculoskeletal: Yes (CHRONIC KNEE PAIN; BACK SURGERY X 3) Arthritis, Chronic Back Pain Endocrine: Yes (MORBID OBESITY) HEENT: Yes (DENTAL CARIES) Cancer: No Psychosocial: No Integumentary: No Blood Disorders: No Physical Exam Vital Signs Vital Signs - First Documented 12/06/19 14:53 Temp 36.4 Pulse 104 Resp 18 B/P (MAP) 132/94 (107) Pulse Ox 100 O2 Delivery Room Air Capillary Refill : Less Than 3 Seconds Height, Weight, BMI Height: '" Weight: lbs. oz. kg; 60.00 BMI Method: General Appearance: obese (MORBIDLY), other (MALODOROUS) HEENT: other (EXTENSIVE DENTAL DECAY) Cardiovascular: normal peripheral pulses, regular rate, rhythm Respiratory: no respiratory distress Knees: right knee other (DIFFUSE ANTERIOR AND MEDIAL RIGHT KNEE TENDERNESS. UNABLE TO DETERMINE IF THERE IS ANY EDEMA PRESENT DUE TO BODY HABITUS. NO DISTAL SWELLING NOTED. DISTAL MOTOR/SENSORY/VASCULAR INTACT. 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, no motor/sensory deficits, alert, normal mood/affect, oriented x 3 Skin: normal color, warm/dry, tattoos/piercings (EXTENSIVE TATTOOS-ENTIRE BODY) Progress/Results/Core Measures Results/Orders Lab Results Laboratory Tests Test 12/06/19 15:58 12/06/19 16:02 Range/Units White Blood Count 9.7 4.3-11.0 10^3/uL Red Blood Count 4.55 4.35-5.85 10^6/uL Hemoglobin 11.4 L 11.5-16.0 G/DL Hematocrit 37 35-52 % Mean Corpuscular Volume 80 80-99 FL Mean Corpuscular Hemoglobin 25 25-34 PG Mean Corpuscular Hemoglobin Concent 31 L 32-36 G/DL Red Cell Distribution Width 16.3 H 10.0-14.5 % Platelet Count 327 130-400 10^3/uL Mean Platelet Volume 9.9 7.4-10.4 FL Neutrophils (%) (Auto) 67 42-75 % Lymphocytes (%) (Auto) 23 12-44 % Monocytes (%) (Auto) 10 0-12 % Eosinophils (%) (Auto) 0 0-10 % Basophils (%) (Auto) 0 0-10 % Neutrophils # (Auto) 6.5 1.8-7.8 X 10^3 Lymphocytes # (Auto) 2.2 1.0-4.0 X 10^3 Monocytes # (Auto) 1.0 0.0-1.0 X 10^3 Eosinophils # (Auto) 0.0 0.0-0.3 10^3/uL Basophils # (Auto) 0.0 0.0-0.1 10^3/uL Erythrocyte Sedimentation Rate 5 0-20 MM/HR Prothrombin Time 12.6 12.2-14.7 SEC INR Comment 0.9 0.8-1.4 Activated Partial Thromboplast Time 29 24-35 SEC Sodium Level 136 135-145 MMOL/L Potassium Level 4.1 3.6-5.0 MMOL/L Chloride Level 101 98-107 MMOL/L Carbon Dioxide Level 23 21-32 MMOL/L Anion Gap 12 5-14 MMOL/L Blood Urea Nitrogen 20 H 7-18 MG/DL Creatinine 1.02 0.60-1.30 MG/DL Estimat Glomerular Filtration Rate 59 BUN/Creatinine Ratio 20 Glucose Level 113 H 70-105 MG/DL Calcium Level 9.5 8.5-10.1 MG/DL Corrected Calcium 9.6 8.5-10.1 MG/DL Magnesium Level 1.8 1.6-2.4 MG/DL Total Bilirubin 0.7 0.1-1.0 MG/DL Aspartate Amino Transf (AST/SGOT) 34 5-34 U/L Alanine Aminotransferase (ALT/SGPT) 35 0-55 U/L Alkaline Phosphatase 83 40-136 U/L C-Reactive Protein High Sensitivity 0.07 0.00-0.50 MG/DL B-Type Natriuretic Peptide 19.3 <100.0 PG/ML Total Protein 7.2 6.4-8.2 GM/DL Albumin 3.9 3.2-4.5 GM/DL Urine Opiates Screen POSITIVE H NEGATIVE Urine Oxycodone Screen NEGATIVE NEGATIVE Urine Methadone Screen NEGATIVE NEGATIVE Urine Propoxyphene Screen NEGATIVE NEGATIVE Urine Barbiturates Screen NEGATIVE NEGATIVE Ur Tricyclic Antidepressants Screen NEGATIVE NEGATIVE Urine Phencyclidine Screen NEGATIVE NEGATIVE Urine Amphetamines Screen NEGATIVE NEGATIVE Urine Methamphetamines Screen NEGATIVE NEGATIVE Urine Benzodiazepines Screen NEGATIVE NEGATIVE Urine Cocaine Screen NEGATIVE NEGATIVE Urine Cannabinoids Screen POSITIVE H NEGATIVE My Orders Orders - VIANEY ELIAS DO Ed Iv/Invasive Line Start (12/06/19 15:21) Urine Bedside (12/06/19 15:21) BNP (12/06/19 15:21) Cbc With Automated Diff (12/06/19 15:21) Comprehensive Metabolic Panel (12/06/19 15:21) Hs C Reactive Protein (12/06/19 15:21) Erythrocyte Sedimentation Rate (12/06/19 15:21) Drug Screen Stat (Urine) (12/06/19 15:21) Magnesium (12/06/19 15:21) Protime With Inr (12/06/19 15:21) Partial Thromboplastin Time (12/06/19 15:21) Us Venous Lower Ext Rt (12/06/19 15:21) Knee, Right, 3 Views (12/06/19 15:21) Ketorolac Injection (Toradol Injection) (12/06/19 16:30) Vital Signs/I&O 12/06/19 14:53 Temp 36.4 Pulse 104 Resp 18 B/P (MAP) 132/94 (107) Pulse Ox 100 O2 Delivery Room Air Blood Pressure Mean: 107 Progress Progress Note : Progress Note PT IS BEING DISMISSED, PT NOW STATES THAT SHE HAS ALREADY ESTABLISHED WITH ORTHOPEDIC SURGEON, DR. L[place]ON, IN [place], AND HE IS THE ONE WHO HAS BEEN DOING INJECTIONS IN BOTH OF HER KNEES STATES SHE HAS SIGNIFICANT IMPROVEMENT FOR ABOUT 3 WEEKS, AND THEN PAIN COMES BACK. Diagnostic Imaging Comments ULTRASOUND RIGHT LOWER EXTREMITY--NORMAL, PER TECH REPORT AT 1615 XRAYS RIGHT KNEE--NO ACUTE PROCESS, MILD DEGENERATIVE CHANGES MEDIAL ASPECT OF JOINT PER RADIOLOGIST REPORTS AT 1656 Reviewed: Reviewed by Me Departure Impression Primary Impression: Chronic pain of right knee Disposition: HOME, SELF-CARE Condition: Stable Departure-Patient Inst. Referrals: NO,LOCAL PHYSICIAN (PCP) Primary Care Physician Patient Instructions: Chronic Knee Pain (DC) Add. Discharge Instructions: ICE TO SORE AREAS AT 20 MINUTE INTERVALS ANNA WRAP TO KNEE NEEDED FOR PAIN OR SWELLING FOLLOW UP WITH DR. LONDON THIS WEEK FOR FURTHER CARE All discharge instructions reviewed with patient and/or family. Voiced understanding. Scripts Methylprednisolone (Medrol) 4 Mg Tab.ds.pk 4 MG PO UD, #1 PKG Prov: VIANEY ELIAS DO 12/06/19 VIANEY ELIAS DO Dec 06, 2019 15:28
[2019-12-06 16:06] LABS: BASOPHILS % (AUTO) 0 % (0-10); EOSINOPHILS % (AUTO) 0 % (0-10); HEMATOCRIT 37 % (35-52); HEMOGLOBIN 11.4 G/DL (11.5-16.0); LYMPHOCYTES # (AUTO) 2.2 X 10^3 (1.0-4.0); LYMPHOCYTES % (AUTO) 23 % (12-44); MEAN CORPUSCULAR HEMOGLOBIN 25 PG (25-34); MEAN CORPUSCULAR HGB CONC 31 G/DL (32-36); MEAN CORPUSCULAR VOLUME 80 FL (80-99); MEAN PLATELET VOLUME 9.9 FL (7.4-10.4); MONOCYTES % (AUTO) 10 % (0-12); NEUTROPHILS # (AUTO) 6.5 X 10^3 (1.8-7.8); NEUTROPHILS % (AUTO) 67 % (42-75); PLATELET COUNT 327 10^3/uL (130-400); RED CELL DISTRIBUTION WIDTH 16.3 % (10.0-14.5); WHITE BLOOD COUNT 9.7 10^3/uL (4.3-11.0)
[2019-12-06 16:18] LABS: INR 0.9 (0.8-1.4); PROTHROMBIN TIME PATIENT 12.6 SEC (12.2-14.7)
[2019-12-06 16:26] LABS: ALBUMIN 3.9 GM/DL (3.2-4.5); BILIRUBIN,TOTAL 0.7 MG/DL (0.1-1.0); CALCIUM 9.5 MG/DL (8.5-10.1); CREATININE SERUM 1.02 MG/DL (0.60-1.30); ERYTHROCYTE SEDIMENTATION RATE 5 MM/HR (0-20); MAGNESIUM 1.8 MG/DL (1.6-2.4); POTASSIUM 4.1 MMOL/L (3.6-5.0); TOTAL PROTEIN 7.2 GM/DL (6.4-8.2)
[2019-12-06 16:26] LABS: AMPHETAMINE SCREEN, URINE NEGATIVE (NEGATIVE); BARBITURATE SCREEN URINE NEGATIVE (NEGATIVE); BENZODIAZEPINES SCREEN URINE NEGATIVE (NEGATIVE); CANNABINOID SCREEN, URINE POSITIVE (NEGATIVE); COCAINE SCREEN URINE NEGATIVE (NEGATIVE); METHADONE STAT NEGATIVE (NEGATIVE); OPIATE SCREEN URINE POSITIVE (NEGATIVE); OXYCODONE STAT NEGATIVE (NEGATIVE); PROPOXYPHENE STAT NEGATIVE (NEGATIVE); TRICYCLIC ANTIDEPRESSANTS SCRE NEGATIVE (NEGATIVE)
[2019-12-06 16:27] LABS: METHAMPHETAMINE SCREEN URINE S NEGATIVE (NEGATIVE)
[2019-12-06] MEDS ORDERED: KETOROLAC 60 MG/2 ML VIAL IM ONE (16:30)
--- NOTE | 2019-12-06 16:46 | Diagnostic Imaging Report ---
HISTORY: Chronic right knee pain. TECHNIQUE: Three views of the right knee. COMPARISON: None. FINDINGS: There is minimal joint space loss in the medial compartment, otherwise joint spaces are preserved. Alignment appears normal. No acute fracture is seen. No joint effusion is seen. IMPRESSION: 1. No acute osseous abnormality is seen in the right knee. Mild medial joint space loss. Dictated by: Dictated on workstation # [id number]
--- NOTE | 2019-12-06 16:51 | Diagnostic Imaging Report ---
PROCEDURE: US right lower extremity venous. TECHNIQUE: Multiple real-time grayscale images were obtained over the right lower extremity in various projections. Additional spectral analysis and color Doppler duplex images were also obtained. INDICATION: Right leg swelling and pain EXAMINATION: Grayscale and color Doppler evaluation of the deep veins of the right lower extremity were performed with waveform analysis. FINDINGS: Continuous venous flow is present. No intraluminal filling defect is identified. There is normal compressibility and response to augmentation. No abnormal perivascular fluid collection is identified. IMPRESSION: No ultrasound evidence of right lower extremity deep venous thrombosis. Dictated by: Dictated on workstation # [id number]
[2019-12-06] MEDS ORDERED: METH4TAB PO (17:04)
[2019-12-06 17:28] VITALS: BP 125/86
== END 2019-12-06 17:28 | disposition home or self-care (01) ==
LOC: EDUNIT# 14:41 → ER 14:42
DX: G89.29 Other chronic pain (principal); M25.561 Pain in right knee; E66.01 Morbid (severe) obesity due to excess calories; Z91.041 Radiographic dye allergy status; Z68.44 Body mass index [BMI] 60.0-69.9, adult; Z88.6 Allergy status to analgesic agent; Z88.1 Allergy status to other antibiotic agents; Z87.891 Personal history of nicotine dependence
CPT/HCPCS: 36415; 73562; 80053; 80306; 83735; 83880; 84703; 85025; 85610; 85652; 85730; 86141; 96372

== ENCOUNTER 2020-01-03 20:23 | Emergency (ER) | payer MEDICARE, MEDICAID ==
[~2020-01-03] VITALS: Ht 177 cm; Wt 180.0 kg
[~2020-01-03 20:23] MED LIST changes: +METH4TAB PO
--- OUTSIDE RECORDS SUMMARY | 2020-01-03 20:34 | XMS REPORT | Continuity of Care Document ---
Author Organization Unknown Address Unknown Phone Unavailable Allergies Active Description Code Type Severity Reaction Onset Reported/Identified Relationship to Patient Clinical Status Yes aspirin [id number] Drug Allergy Unknown N/A 07/12/2019 Yes clindamycin [id number] Drug Aller gy Unknown N/A 07/12/2019 Yes Iodinated Contrast Media [id number] Drug Allergy Unknown N/A 07/12/2019 Medications There [...] OTHER SPECIFIED POSTPROCEDURAL STATES 08/24/2019 ROMARIO DOWELL NETWORK ASSOCIATE Ot M25.562 PAIN IN LEFT KNEE 08/24/2019 ROMARIO DOWELL NETWORK ASSOCIATE Ot S80.02XA CONTUSION OF LEFT KNEE, INITIAL ENCOUNTE 08/24/2019 ROMARIO DOWELL NETWORK ASSOCIATE Ot W19.XXXA UNSPECIFIED FALL, INITIAL ENCOUNTER 08/24/2019 ROMARIO DOWELL APRN Ot Z87.442 PERSONAL HISTORY OF URINARY CALCULI 08/24/2019 ROMARIO DOWELL NETWORK ASSOCIATE Ot Z87.891 PERSONAL HISTORY OF NICOTINE DEPENDENCE [...] DENTAL CARIES, UNSPECIFIED 09/22/2019 DOUG TINAJERO MD Ot K08. 89 OTHER SPECIFIED DISORDERS OF TEETH AND S 09/22/2019 DOUG TINAJERO MD Ot Z87.442 PERSONAL HISTORY OF URINARY CALCULI 09/22/2019 DOUG TINAJERO MD Ot Z87.891 PERSONAL HISTORY OF NICOTINE DEPENDENCE 09/22/2019 TANVI JASSO DOUG Luis Ot Z88. 1 ALLERGY STATUS TO OTHER ANTIBIOTIC AGENT 09/22/2019 DOUG TINAJERO MD Ot Z88. 6 ALLERGY STATUS TO ANALGESIC AGENT STATUS 09/22/2019 DOUG TINAJERO MD Ot Z90. 89 ACQUIRED ABSENCE OF OTHER ORGANS 09/22/2019 TANVI JASSO, DOUG Smith Ot Z91.041 RADIOGRAPHIC DYE ALLERGY STATUS 11/01/2019 JOSIE DEAL MD Ot T39.015A ADVERSE EFFECT OF ASPIRIN, INITIAL ENCOU 11/01/2019 JOSIE DEAL MD Ot T88.6XXA ANAPHYL REACTION DUE TO ADVRS EFF DRUG/M 11/01/2019 JOSIE DEAL MD Ot Z87.442 PERSONAL HISTORY OF URINARY CALCULI 11/01/2019 JOSIE DEAL MD Ot Z87.891 PERSONAL HISTORY OF NICOTINE DEPENDENCE 11/01/2019 JOSIE DEAL MD Ot Z88. 1 ALLERGY STATUS TO OTHER ANTIBIOTIC AGENT 11/01/2019 JOSIE DEAL MD Ot Z88. 6 ALLERGY STATUS TO ANALGESIC AGENT STATUS 11/01/2019 JOSIE DEAL MD Ot Z90. 89 ACQUIRED ABSENCE OF OTHER ORGANS 11/01/2019 JOSIE DEAL MD Ot Z91.041 RADIOGRAPHIC DYE ALLERGY STATUS 11/04/2019 JOSIE DEAL MD Ot T39.015A ADVERSE EFFECT OF ASPIRIN, INITIAL ENCOU 11/04/2019 JOSIE DEAL MD Ot T88.6XXA ANAPHYL REACTION DUE TO ADVRS EFF DRUG/M 11/04/2019 JOSIE DEAL MD Ot Z87.442 PERSONAL HISTORY OF URINARY CALCULI 11/04/2019 JOSIE DEAL MD Ot Z87.891 PERSONAL HISTORY OF NICOTINE DEPENDENCE 11/04/2019 JOSIE DEAL MD Ot Z88. 1 ALLERGY STATUS TO OTHER ANTIBIOTIC AGENT 11/04/2019 JOSIE DEAL MD Ot Z88. 6 ALLERGY STATUS TO ANALGESIC AGENT STATUS 11/04/2019 JOSIE DEAL MD Ot Z90. 89 ACQUIRED ABSENCE OF OTHER ORGANS 11/04/2019 JOSIE DEAL MD Ot Z91.041 RADIOGRAPHIC DYE ALLERGY STATUS 12/06/2019 VIANEY ELIAS DO Ot E66.01 MORBID (SEVERE) OBESITY DUE TO EXCESS CA 12/06/2019 JADA VIANEY THAKKAR Ot G89.29 OTHER CHRONIC PAIN 12/06/2019 [place] VIANEY THAKKAR Ot M25.561 PAIN IN RIGHT KNEE 12/06/2019 [place] VIANEY THAKKAR Ot Z68.44 BODY MASS INDEX (BMI) 60.0-69.9, ADULT 12/06/2019 [place] , VIANEY Martinez Ot Z87.891 PERSONAL HISTORY OF NICOTINE DEPENDENCE 12/06/2019 [place] VIANEY THAKKAR Ot Z88.1 ALLERGY STATUS TO OTHER ANTIBIOTIC AGENT 12/06/2019 [place] VIANEY THAKKAR Ot Z88.6 ALLERGY STATUS TO ANALGESIC AGENT STATUS 12/06/2019 JADA VIANEY THAKKAR Ot Z91.041 RADIOGRAPHIC DYE ALLERGY STATUS Procedures [...] urinalysis with reflex to culture NO NRG Complete blood count (CBC) with automate d white blood cell (WBC) differential - 12/06/19 15:58 Blood leukocytes automated count (number/volume) 9.7 10*3/uL 4.3-11.0 Blood erythrocytes automated count (number/volume) 4.55 10*6/uL 4.35-5.85 Venous blood hemoglobin measurement (mass/volume) 11.4 g/dL 11.5-16.0 Blood hematocrit (volume fraction) 37 % 35-52 Automated erythrocyte mean corpuscular volume 80 [ foz_us] 80-99 Automated erythrocyte mean corpuscular h emoglobin (mass per erythrocyte) 25 pg 25-34 Automated erythrocyte mean corpuscular h emoglobin concentration measurement (mass/volume) 31 g/dL 32-36 Automated erythrocyte distribution width ratio 16. 3 % 10.0- 14.5 Automated blood platelet count (count/volume) 327 10*3/uL 130-400 Automated blood platelet mean volume measurement 9.9 [foz_us] 7.4-10.4 Automated blood neutrophils/100 leukocytes 67 % 42-75 Automated blood lymphocytes/100 leukocytes 23 % 12-44 Blood monocytes/100 leukocytes 10 % 0-12 Automated blood eosinophils/100 leukocytes 0 % 0-10 Automated blood basophils/100 leukocytes 0 % 0-10 Blood neutrophils automated count (number/volume) 6.5 10*3 1.8-7.8 Blood lymphocytes automated count (number/volume) 2.2 10*3 1.0-4.0 Blood monocytes automated count (number/volume) 1. 0 10*3 0.0-1.0 Automated eosinophil count 0.0 10*3/uL 0 .0-0.3 Automated blood basophil count (count/volume) 0.0 10*3/uL 0.0-0.1 PT panel in platelet poor plasma by coag ulation assay - 12/06/19 15:58 Prothrombin time (PT) in platelet poor plasma by coagu lation assay 12.6 s 12.2-14.7 INR in platelet poor plasma or blood by coagulation as say 0.9 0.8-1.4 Activated partial thromboplastin time (a PTT) in platelet poor plasma bycoagulation assay - 12/06/19 15:58 Activated partial thromboplastin time (a PTT) in platelet poor plasma bycoagulation assay 29 s 24-35 Erythrocyte sedimentation rate by nam gren method - 12/06/19 15:58 Erythrocyte sedimentation rate by westergren method 5 mm 0- 20 Comprehensive metabolic panel - 12/06/19 15:58 Serum or plasma sodium measurement (moles/volume) 136 mmol/L 135-145 Serum or plasma potassium measurement (moles/volume) 4.1 mmol/L 3.6-5.0 Serum or plasma chloride measurement (moles/volume) 101 mmol/L 98-107 Carbon dioxide 23 mmol/L 21-32 Serum or plasma anion gap determination (moles/volume) 12 mmol/L 5-14 Serum or plasma urea nitrogen measurement (mass/volume ) 20 mg/dL 7-18 Serum or plasma creatinine measurement (mass/volume) 1.02 mg/dL 0.60-1.30 Serum or plasma urea nitrogen/creatinine mass ratio 20 NRG Serum or plasma creatinine measurement w ith calculation of estimated glomerular filtration rate 59 NRG Serum or plasma glucose measurement (mass/volume) 113 mg/dL 70-105 Serum or plasma calcium measurement (mass/volume) 9.5 mg/dL 8.5-10.1 Serum or plasma total bilirubin measurement (mass/volu me) 0.7 mg/dL 0.1-1.0 Serum or plasma alkaline phosphatase gurmeet surement (enzymatic activity/volume) 83 U/L 40-136 Serum or plasma aspartate aminotransfera se measurement (enzymatic activity/volume) 34 U/L 5-34 Serum or plasma alanine aminotransferase measurement (enzymatic activity/volume) 35 U/L 0-55 Serum or plasma protein measurement (mass/volume) 7.2 g/dL 6.4-8.2 Serum or plasma albumin measurement (mass/volume) 3.9 g/dL 3.2-4.5 CALCIUM CORRECTED 9.6 mg/dL 8.5-10.1 Magnesium - 12/06/19 15:58 Magnesium 1.8 mg/dL 1.6-2.4 Serum or plasma C reactive protein measu rement (mass/volume) - 12/06/19 15:58 Serum or plasma C reactive protein measurement (mass/v olume) 0.07 mg/dL 0.00-0.50 Serum or plasma lithium measurement (mol es/volume) - 12/06/19 15:58 BNP PT 19.3 pg/mL <100.0 Urine drug screening test - 12/06/19 16: 02 Urine phencyclidine detection by screening method NEGATIVE NEGATIVE Urine benzodiazepines detection by screening method NEGATIVE NEGATIVE Urine cocaine detection NEGATIVE NEGATI VE Urine amphetamines detection by screening method N EGATIVE NEGATIVE Urine methamphetamine detection by screening method NEGATIVE NEGATIVE Urine cannabinoids detection by screening method P OSITIVE NEGATIVE Urine opiates detection by screening method POSITI VE NEGATIVE Urine barbiturates detection NEGATIVE N EGATIVE Screening urine tricyclic antidepressants detection NEGATIVE NEGATIVE Urine methadone detection by screening method NEGA TIVE NEGATIVE Urine oxycodone detection NEGATIVE NEGA TIVE Urine propoxyphene detection NEGATIVE N EGATIVE Encounters ACCT No. Visit Date/Time Discharge Status Pt. Type Provider Facility Loc./Unit Complaint [id number] 12/06/2019 14:42:00 17:28:00 DIS Emergency VIANEY ELIAS DO a [facility] ER L LEG PAIN/KNOT [id number] 11/01/2019 19:50:00 21:26:00 DIS Emergency SAY JASSO, JOSIE Cruz Via [facility] ER TOOK ASPIRIN ALLERGIC T O IT [id number] 09/18/2019 16:50:00 17:16:00 DIS Emergency TANVI JASSO, DOUG S Via [facility] ER TOOTH PAIN [id number] 08/24/2019 18:57:00 20:08:00 DIS Emergency ROMARIO DOWELL APRN Via [facility] ER L KNEE PAIN [id number] 07/12/2019 16:09:00 17:38:00 DIS Emergency AILYN JASSO, AMAN T Via [facility] ER BACK PAIN [id number] 01/03/2020 20:25:[address] Emergency ROMARIO DOWELL APRN Via [facility] ER R KNEE PAIN
--- NOTE | 2020-01-03 20:36 | ED Lower Extremity ---
General Chief Complaint: Lower Extremity Stated Complaint: R KNEE PAIN Source: patient Exam Limitations: no limitations History of Present Illness Date Seen by Provider: Jan 03, 2020 Time Seen by Provider: 20:36 Initial Comments To ER with right knee pain ongoing for quite some time, this morning the pain began as a burning sensation behind the knee. Typically she does not have a burning sensation. It is present whenever she puts weight on the knee and shoots up to her buttocks. She has a history of low back surgery. She is already on Lortab 7.5 mg for this. She follows with Dr. Ruiz and Lisa, she'll see him next week. Onset: other Severity: moderate Pain/Injury Location: right knee Method of Injury: unknown Modifying Factors: Worse With Movement Allergies and Home Medications Allergies Coded Allergies: Iodinated Contrast Media (Verified Allergy, Unknown, 07/12/19) aspirin (Verified Allergy, Unknown, 07/12/19) clindamycin (Verified Allergy, Unknown, 07/12/19) Home Medications Epinephrine 0.3 Mg/0.3 Ml Auto.injct, 0.3 MG IJ Q15M PRN for anaphylaxis Prescribed by: JOSIE DEAL on 11/01/192107 Famotidine 20 Mg Tablet, 20 MG PO BID Prescribed by: JOSIE DEAL on 11/01/192107 Hydrocodone/Acetaminophen 1 Each Tablet, 1-2 EACH PO Q6H PRN for PAIN-MODERATE Prescribed by: DOUG TINAJERO MD on 09/18/191713 Loratadine 10 Mg Tablet, 10 MG PO DAILY Prescribed by: JOSIE DEAL on 11/01/192107 Methylprednisolone 4 Mg Tab.ds.pk, 4 MG PO UD Prescribed by: VIANEY ELIAS on 12/06/191703 Penicillin V Potassium 500 Mg Tablet, 500 MG PO QID Prescribed by: DOUG TINAJERO MD on 09/18/191712 Patient Home Medication List Home Medication List Reviewed: Yes Review of Systems Constitutional: see HPI EENTM: see HPI Respiratory: no symptoms reported Cardiovascular: no symptoms reported Genitourinary: no symptoms reported Musculoskeletal: see HPI Skin: no symptoms reported Psychiatric/Neurological: No Symptoms Reported Past Xjcuwss-Bcxduy-Xhrkyk Hx Patient Social History Type Used: Cigarettes Former Smoker, Quit: March 01, 2017 2nd Hand Smoke Exposure: No Recent Foreign Travel: No Contact w/Someone Who Travel: No Recent Hopitalizations: No Seasonal Allergies Seasonal Allergies: No Past Medical History Surgeries: Yes (LAP BAND; BACK SURGERY X 3 WITH WOUND DEBRIDEMENTS OF SURGICAL SITE) Abdominal, Section, Ear Surgery, Gallbladder, Orthopedic, Tonsillectomy Respiratory: No Cardiac: No Neurological: No Genitourinary: Yes Kidney Stones Gastrointestinal: No Musculoskeletal: Yes (CHRONIC KNEE PAIN; BACK SURGERY X 3) Arthritis, Chronic Back Pain Endocrine: Yes (MORBID OBESITY) HEENT: Yes (DENTAL CARIES) Cancer: No Psychosocial: No Integumentary: No Blood Disorders: No Physical Exam Vital Signs Capillary Refill : Height, Weight, BMI Height: '" Weight: lbs. oz. kg; 60.00 BMI Method: General Appearance: WD/WN, no apparent distress HEENT: PERRL/EOMI, normal ENT inspection Respiratory: no respiratory distress, no accessory muscle use Hips: bilateral hip non-tender, bilateral hip normal inspection, bilateral hip normal range of motion Legs: bilateral leg non-tender, bilateral leg normal inspection, bilateral leg normal range of motion Knees: bilateral knee non-tender, bilateral knee normal inspection, bilateral knee normal range of motion; right knee pain Ankles: bilateral ankle non-tender, bilateral ankle normal inspection, bilateral ankle normal range of motion Feet: bilateral foot non-tender, bilateral foot normal inspection, bilateral foot normal range of motion Neurologic/Psychiatric: alert, normal mood/affect, oriented x 3 Skin: normal color, warm/dry Progress/Results/Core Measures Results/Orders My Orders Orders - ROMARIO DOWELL APRN Ketorolac Injection (Toradol Injection) (01/03/20 20:45) Prednisone Tablet (Deltasone Tablet) (01/03/20 20:45) Departure Impression Primary Impression: Chronic knee pain Qualified Codes: M25.561 - Pain in right knee; G89.29 - Other chronic pain Disposition: HOME, SELF-CARE Condition: Stable Departure-Patient Inst. Decision time for Depature: 20:36 Referrals: NO,LOCAL PHYSICIAN (PCP/Family) Primary Care Physician Patient Instructions: Chronic Pain (DC) Add. Discharge Instructions: 1. Follow-up with orthopedic surgeon 2. Return to ER for any concerns. All discharge instructions reviewed with patient and/or family. Voiced understanding. Scripts Prednisone (Prednisone) 20 Mg Tab 40 MG PO DAILY, #6 TAB 0 Refills Prov: ROMARIO DOWELL APRN 01/03/20 ROMARIO DOWELL APRN Jan 03, 2020 20:36
[2020-01-03] MEDS ORDERED: PRD20T PO (20:42)
[2020-01-03] MEDS ORDERED: KETOROLAC 60 MG/2 ML VIAL IM ONE (20:45)
[2020-01-03] MEDS ORDERED: predniSONE 20 MG TAB PO ONE (20:45)
[2020-01-03 21:02] VITALS: BP 144/88
[2020-01-03] MEDS ORDERED: hydrOXYzine (VISTARIL/ATARAX) 25 MG capsule/tablet PO ONE (21:30)
== END 2020-01-03 21:19 | disposition home or self-care (01) ==
LOC: EDUNIT# 20:23 → ER 20:25
DX: M25.561 Pain in right knee (principal); G89.29 Other chronic pain; Z87.891 Personal history of nicotine dependence; E66.01 Morbid (severe) obesity due to excess calories; M19.91 Primary osteoarthritis, unspecified site; Z68.43 Body mass index [BMI] 50.0-59.9, adult
CPT/HCPCS: 99284

== ENCOUNTER 2020-01-03 21:44 | Emergency (ER) | payer MEDICARE, MEDICAID ==
[~2020-01-03] VITALS: Ht 177 cm; Wt 180.0 kg
[~2020-01-03 21:44] MED LIST changes: +PRD20T PO
--- OUTSIDE RECORDS SUMMARY | 2020-01-03 21:49 | XMS REPORT | Continuity of Care Document ---
Author Organization Unknown Address Unknown Phone Unavailable Allergies Active Description Code Type Severity Reaction Onset Reported/Identified Relationship to Patient Clinical Status Yes aspirin [id number] Drug Allergy Unknown N/A 07/12/2019 Yes clindamycin [id number] Drug Aller gy Unknown N/A 07/12/2019 Yes Iodinated Contrast Media [id number] Drug Allergy Unknown N/A 07/12/2019 Medications There [...] OTHER SPECIFIED POSTPROCEDURAL STATES 08/24/2019 ROMARIO DOWELL LEAD TECHNICIAN Ot M25.562 PAIN IN LEFT KNEE 08/24/2019 ROMARIO DOWELL LEAD TECHNICIAN Ot S80.02XA CONTUSION OF LEFT KNEE, INITIAL ENCOUNTE 08/24/2019 ROMARIO DOWELL LEAD TECHNICIAN Ot W19.XXXA UNSPECIFIED FALL, INITIAL ENCOUNTER 08/24/2019 ROMARIO DOWELL APRN Ot Z87.442 PERSONAL HISTORY OF URINARY CALCULI 08/24/2019 ROMARIO DOWELL LEAD TECHNICIAN Ot Z87.891 PERSONAL HISTORY OF NICOTINE DEPENDENCE 08/24/2019 ROMARIO ODWELL APRN Ot Z88 .1 ALLERGY STATUS TO [...] THAKKAR Ot G89.29 OTHER CHRONIC PAIN 12/06/2019 [place] VIANEY THAKKAR Ot M25.561 PAIN IN RIGHT KNEE 12/06/2019 [place] VIANEY THAKKAR Ot Z68.44 BODY MASS INDEX (BMI) 60.0-69.9, ADULT 12/06/2019 [place] , VIANEY Martinez Ot Z87.891 PERSONAL HISTORY OF NICOTINE DEPENDENCE 12/06/2019 [place] VIANEY THAKKAR Ot Z88.1 ALLERGY STATUS TO OTHER ANTIBIOTIC AGENT 12/06/2019 [place] VIANEY THAKKAR Ot Z88.6 ALLERGY STATUS TO [...] Status Pt. Type Provider Facility Loc./Unit Complaint [id number] 12/06/2019 14:42:00 17:28:00 DIS Emergency VIANEY ELIAS DO a [facility] [address] ER L LEG PAIN/KNOT [id number] 11/01/2019 19:50:00 21:26:00 DIS Emergency SAY JASSO, JOSIE Cruz Via [facility] [address] ER TOOK ASPIRIN ALLERGIC T O IT [id number] 09/18/2019 16:50:00 17:16:00 DIS Emergency TANVI JASSO, DOUG S Via [facility] [address] ER TOOTH PAIN [id number] 08/24/2019 18:57:00 20:08:00 DIS Emergency ROMARIO DOWELL APRN Via [facility] [address] ER L KNEE PAIN [id number] 07/12/2019 16:09:00 17:38:00 DIS Emergency AILYN JASSO, AMAN T Via [facility] [address] ER BACK PAIN [id number] 01/03/2020 20:25:[address] Emergency ROMARIO DOWELL APRN Via [facility] [address] ER R KNEE PAIN
--- OUTSIDE RECORDS SUMMARY | 2020-01-03 22:12 | XMS REPORT | Continuity of Care Document ---
Author Organization Unknown Address Unknown Phone Unavailable Allergies Active Description Code Type Severity Reaction Onset Reported/Identified Relationship to Patient Clinical Status Yes aspirin [id number] Drug Allergy Unknown N/A 07/12/2019 Yes clindamycin [id number] Drug Aller gy Unknown N/A 07/12/2019 Yes Iodinated Contrast Media [id number] Drug Allergy Unknown N/A 07/12/2019 Medications There [...] Ot Z98.890 OTHER SPECIFIED POSTPROCEDURAL STATES 07/14/2019 MAAN ROBERTSON MD, Ot M54.5 LOW BACK PAIN [...] OTHER SPECIFIED POSTPROCEDURAL STATES 08/24/2019 ROMARIO DOWELL OPEN HEARTH FURNACE OPERATOR Ot M25.562 PAIN IN LEFT KNEE 08/24/2019 ROMARIO DOWELL OPEN HEARTH FURNACE OPERATOR Ot S80.02XA CONTUSION OF LEFT KNEE, INITIAL ENCOUNTE 08/24/2019 ROMARIO DOWELL OPEN HEARTH FURNACE OPERATOR Ot W19.XXXA UNSPECIFIED FALL, INITIAL ENCOUNTER 08/24/2019 ROMARIO DOWELL APRN Ot Z87.442 PERSONAL HISTORY OF URINARY CALCULI 08/24/2019 ROMARIO DOWELL OPEN HEARTH FURNACE OPERATOR Ot Z87.891 PERSONAL HISTORY OF NICOTINE DEPENDENCE [...] THAKKAR Ot G89.29 OTHER CHRONIC PAIN 12/06/2019 [place] VIANEY THAKKAR Ot M25.561 PAIN IN RIGHT KNEE 12/06/2019 [place] VIANEY THAKKAR Ot Z68.44 BODY MASS INDEX (BMI) 60.0-69.9, ADULT 12/06/2019 [place] , VIANEY Martinez Ot Z87.891 PERSONAL HISTORY OF NICOTINE DEPENDENCE 12/06/2019 [place] VIANEY THAKKAR Ot Z88.1 ALLERGY STATUS TO OTHER ANTIBIOTIC AGENT 12/06/2019 [place] VIANEY THAKKAR Ot Z88.6 ALLERGY STATUS TO [...] Status Pt. Type Provider Facility Loc./Unit Complaint [id number] 12/06/2019 14:42:00 17:28:00 DIS Emergency VIANEY ELIAS DO a [facility] ER L LEG PAIN/KNOT [id number] 11/01/2019 19:50:00 21:26:00 DIS Emergency SAY JASSO, JOSIE Cruz Via [facility] ER TOOK ASPIRIN ALLERGIC T O IT [id number] 09/18/2019 16:50:00 17:16:00 DIS Emergency TANVI JASSO, DOUG S Via [facility] ER TOOTH PAIN [id number] 08/24/2019 18:57:00 20:08:00 DIS Emergency ROMARIO DOWELL APRN Via [facility] ER L KNEE PAIN [id number] 07/12/2019 16:09:00 17:38:00 DIS Emergency AILYN JASSO, AMAN T Via [facility] ER BACK PAIN [id number] 01/03/2020 20:25:[address] Emergency ROMARIO DOWELL APRN Via [facility] ER R KNEE PAIN
--- NOTE | 2020-01-03 22:26 | ED General ---
General Stated Complaint: ANXIETY Source of Information: Patient Exam Limitations: No Limitations History of Present Illness Date Seen by Provider: Jan 03, 2020 Time Seen by Provider: 22:24 Initial Comments Was just seen here for knee pain, at the end of the visit she became anxious and was given Vistaril 25 mg by mouth. She returns now with reports of severe anxiety. She relates this to the muscle relaxer that she took, she states every time she takes the muscle relaxer Zanaflex she gets very anxious like this. She took it today in an effort to help the right knee pain. Timing/Duration: 1-2 Days Severity: Moderate Associated Systoms: Denies Symptoms Allergies and Home Medications Allergies Coded Allergies: Iodinated Contrast Media (Verified Allergy, Unknown, 07/12/19) aspirin (Verified Allergy, Unknown, 07/12/19) clindamycin (Verified Allergy, Unknown, 07/12/19) Home Medications Epinephrine 0.3 Mg/0.3 Ml Auto.injct, 0.3 MG IJ Q15M PRN for anaphylaxis Prescribed by: JOSIE DEAL on 11/01/192107 Famotidine 20 Mg Tablet, 20 MG PO BID Prescribed by: JOSIE DEAL on 11/01/192107 Hydrocodone/Acetaminophen 1 Each Tablet, 1-2 EACH PO Q6H PRN for PAIN-MODERATE Prescribed by: DOUG TINAJERO MD on 09/18/191713 Loratadine 10 Mg Tablet, 10 MG PO DAILY Prescribed by: JOSIE DEAL on 11/01/192107 Methylprednisolone 4 Mg Tab.ds.pk, 4 MG PO UD Prescribed by: VIANEY ELIAS on 12/06/191703 Penicillin V Potassium 500 Mg Tablet, 500 MG PO QID Prescribed by: DOUG TINAJERO MD on 09/18/191712 Prednisone 20 Mg Tab, 40 MG PO DAILY Prescribed by: ROMARIO DOWELL on 01/03/202041 Patient Home Medication List Home Medication List Reviewed: Yes Review of Systems Review of Systems Constitutional: see HPI EENTM: see HPI Respiratory: no symptoms reported Cardiovascular: no symptoms reported Genitourinary: no symptoms reported Musculoskeletal: no symptoms reported Psychiatric/Neurological: See HPI, Anxiety Hematologic/Lymphatic: No Symptoms Reported Past Fqolpan-Sdsemu-Evjwwr Hx Patient Social History Type Used: Cigarettes Former Smoker, Quit: March 01, 2017 2nd Hand Smoke Exposure: No Recent Foreign Travel: No Contact w/Someone Who Travel: No Recent Hopitalizations: No Immunizations Up To Date Tetanus Booster (TDap): Unknown PED Vaccines UTD: Yes Seasonal Allergies Seasonal Allergies: No Past Medical History Surgeries: Yes (LAP BAND; BACK SURGERY X 3 WITH WOUND DEBRIDEMENTS OF SURGICAL SITE) Abdominal, Section, Ear Surgery, Gallbladder, Orthopedic, Tonsillectomy Respiratory: No Cardiac: No Neurological: No Genitourinary: Yes Kidney Stones Gastrointestinal: No Musculoskeletal: Yes (CHRONIC KNEE PAIN; BACK SURGERY X 3) Arthritis, Chronic Back Pain Endocrine: Yes (MORBID OBESITY) HEENT: Yes (DENTAL CARIES) Cancer: No Psychosocial: No Integumentary: No Blood Disorders: No Physical Exam Vital Signs Capillary Refill : Height, Weight, BMI Height: '" Weight: lbs. oz. kg; 57.00 BMI Method: General Appearance: No Apparent Distress, WD/WN Eyes: Bilateral Eye Normal Inspection, Bilateral Eye PERRL HEENT: PERRL/EOMI Neck: Full Range of Motion, Normal Inspection Respiratory: No Accessory Muscle Use, No Respiratory Distress Cardiovascular: Regular Rate, Rhythm, Normal Peripheral Pulses Gastrointestinal: Normal Bowel Sounds, Non Tender, Soft Extremity: Normal Capillary Refill, Normal Inspection Neurologic/Psychiatric: Alert, Oriented x3 Skin: Normal Color, Warm/Dry Progress/Results/Core Measures Suspected Sepsis SIRS Temperature: Pulse: Respiratory Rate: Blood Pressure / Mean: Results/Orders My Orders Orders - ROMARIO DOWELL APRN Hydroxyzine Cap/Tab (Vistaril) (01/03/20 22:30) Vital Signs/I&O Capillary Refill : Departure Impression Primary Impression: Anxiety Disposition: 01 HOME, SELF-CARE Condition: Stable Departure-Patient Inst. Decision time for Depature: 22:27 Referrals: NO,LOCAL PHYSICIAN (PCP/Family) Primary Care Physician Patient Instructions: Anxiety, Adult (DC) ROMARIO DOWELL APRN Jan 03, 2020 22:26
[2020-01-03 22:29] VITALS: BP 144/88
[2020-01-03] MEDS ORDERED: hydrOXYzine (VISTARIL/ATARAX) 25 MG capsule/tablet PO ONE (22:30)
== END 2020-01-03 22:30 | disposition home or self-care (01) ==
LOC: ER 21:44 → EDUNIT# 21:44 → ER 21:45
DX: F41.9 Anxiety disorder, unspecified (principal); Z79.899 Other long term (current) drug therapy; E66.01 Morbid (severe) obesity due to excess calories; M25.569 Pain in unspecified knee; Z68.43 Body mass index [BMI] 50.0-59.9, adult
CPT/HCPCS: 99283

== ENCOUNTER 2020-01-17 18:17 | Emergency (ER) | payer MEDICARE, MEDICAID ==
[~2020-01-17] VITALS: Ht 175 cm; Wt 158.7 kg
--- OUTSIDE RECORDS SUMMARY | 2020-01-17 18:46 | XMS REPORT | Continuity of Care Document ---
Author Organization Unknown Address Unknown Phone Unavailable Allergies Active Description Code Type Severity Reaction Onset Reported/Identified Relationship to Patient Clinical Status Yes aspirin [id number] Drug Allergy Unknown N/A 07/12/2019 Yes clindamycin [id number] Drug Aller gy Unknown N/A 07/12/2019 Yes Iodinated Contrast Media [id number] Drug Allergy Unknown N/A 07/12/2019 Medications There [...] OTHER SPECIFIED POSTPROCEDURAL STATES 08/24/2019 ROMARIO DOWELL BOILER OPERATOR HELPER Ot M25.562 PAIN IN LEFT KNEE 08/24/2019 ROMARIO DOWELL BOILER OPERATOR HELPER Ot S80.02XA CONTUSION OF LEFT KNEE, INITIAL ENCOUNTE 08/24/2019 ROMARIO DOWELL BOILER OPERATOR HELPER Ot W19.XXXA UNSPECIFIED FALL, INITIAL ENCOUNTER 08/24/2019 ROMARIO DOWELL APRN Ot Z87.442 PERSONAL HISTORY OF URINARY CALCULI 08/24/2019 ROMARIO DOWELL BOILER OPERATOR HELPER Ot Z87.891 PERSONAL HISTORY OF NICOTINE DEPENDENCE [...] Z87.891 PERSONAL HISTORY OF NICOTINE DEPENDENCE 09/18/2019 ODUG TINAJERO MD Ot Z88. 1 ALLERGY STATUS [...] 89 ACQUIRED ABSENCE OF OTHER ORGANS 11/04/2019 SAY JASSO, JOSIE Cruz Ot Z91.041 RADIOGRAPHIC DYE ALLERGY STATUS 12/06/2019 JADA DO, VIANEY K Ot E66.01 MORBID (SEVERE) OBESITY DUE TO EXCESS CA 12/06/2019 JADA DO, VIANEY K Ot G89.29 OTHER CHRONIC PAIN 12/06/2019 JADA DO, VIANEY K Ot M25.561 PAIN IN RIGHT KNEE 12/06/2019 JADA DO, VIANEY K Ot Z68.44 BODY MASS INDEX (BMI) 60.0-69.9, ADULT 12/06/2019 JADA DO, VIANEY K Ot Z87.891 PERSONAL HISTORY OF NICOTINE DEPENDENCE 12/06/2019 DURANT DO, VIANEY K Ot Z88.1 ALLERGY STATUS TO OTHER ANTIBIOTIC AGENT 12/06/2019 DURANT DO, VIANEY K Ot Z88.6 ALLERGY STATUS TO ANALGESIC AGENT STATUS 12/06/2019 JADA DO, VIANEY K Ot Z91.041 RADIOGRAPHIC DYE ALLERGY STATUS 01/03/2020 ROMARIO DOWELL APRN Ot E66.01 MORBID (SEVERE) OBESITY DUE TO EXCESS CA 01/03/2020 ROMARIO DOWELL APRN Ot G89.29 OTHER CHRONIC PAIN 01/03/2020 ROMARIO DOWELL APRN Ot M19.91 PRIMARY OSTEOARTHRITIS, UNSPECIFIED SITE 01/03/2020 ROMARIO DOWELL APRN Ot M25.561 PAIN IN RIGHT KNEE 01/03/2020 ROMARIO DOWELL APRN Ot Z68.43 BODY MASS INDEX (BMI) 50.0-59.9, ADULT 01/03/2020 ROMARIO DOWELL APRN Ot Z87.891 PERSONAL HISTORY OF NICOTINE DEPENDENCE 01/09/2020 ROMARIO DOWELL APRN Ot E66.01 MORBID (SEVERE) OBESITY DUE TO EXCESS CA 01/09/2020 ROMARIO DOWELL APRN Ot G89.29 OTHER CHRONIC PAIN 01/09/2020 ROMARIO DOWELL APRN Ot M19.91 PRIMARY OSTEOARTHRITIS, UNSPECIFIED SITE 01/09/2020 ROMARIO DOWELL APRN Ot M25.561 PAIN IN RIGHT KNEE 01/09/2020 ROMAROI DOWELL APRN Ot Z68.43 BODY MASS INDEX (BMI) 50.0-59.9, ADULT 01/09/2020 ROMARIO DOWELL APRN Ot Z87.891 PERSONAL HISTORY OF NICOTINE DEPENDENCE 01/09/2020 DOWELLROMARIO APRN Ot E66.01 MORBID (SEVERE) OBESITY DUE TO EXCESS CA 01/09/2020 DOWELLROMARIO APRN Ot G89.29 OTHER CHRONIC PAIN 01/09/2020 DOWELLROMARIO APRN Ot M19.91 PRIMARY OSTEOARTHRITIS, UNSPECIFIED SITE 01/09/2020 ROMARIO DOWELL APRN Ot M25.561 PAIN IN RIGHT KNEE 01/09/2020 ROMARIO DOWELL APRN Ot Z68.43 BODY MASS INDEX (BMI) 50.0-59.9, ADULT 01/09/2020 DOWELLROMARIO APRN Ot Z87.891 PERSONAL HISTORY OF NICOTINE DEPENDENCE 01/09/2020 DOWELLROMARIO APRN Ot E66.01 MORBID (SEVERE) OBESITY DUE TO EXCESS CA 01/09/2020 DOWELLROMARIO APRN Ot F41 .9 ANXIETY DISORDER, UNSPECIFIED 01/09/2020 ROMARIO DOWELL APRN Ot M25.569 PAIN IN UNSPECIFIED KNEE 01/09/2020 DOWELLROMARIO APRN Ot Z68.43 BODY MASS INDEX (BMI) 50.0-59.9, ADULT 01/09/2020 DOWELL, ROMARIO Cruz APRN Ot Z79.899 OTHER CARE HOME (CURRENT) DRUG THERAPY Procedures There is no data. Results Test [...] Status Pt. Type Provider Facility Loc./Unit Complaint [id number] 01/03/2020 21:44:00 22:30:00 DIS Outpatient ROMARIO DOWELL APRN Via [facility] ER ANXIETY [id number] 01/03/2020 20:25:00 21:19:00 DIS Emergency ROMARIO DOWELL APRN Via [facility] ER R KNEE PAIN [id number] 12/06/2019 14:42:00 17:28:00 DIS Emergency VIANEY ELIAS DO [facility] ER L LEG PAIN/KNOT [id number] 11/01/2019 19:50:00 21:26:00 DIS Emergency SAY JASSO, JOSIE Cruz Via [facility] ER TOOK ASPIRIN ALLERGIC T O IT [id number] 09/18/2019 16:50:00 17:16:00 DIS Emergency TANVI JASSO, DOUG Smith Via [facility] ER TOOTH PAIN [id number] 08/24/2019 18:57:00 20:08:00 DIS Emergency ROMARIO DOWELL APRN Via [facility] ER L KNEE PAIN [id number] 07/12/2019 16:09:00 019 17:38:00 DIS Emergency AILYN JASSO, AMAN Aldrich Via [facility] ER BACK PAIN [id number] 01/17/2020 18:18:[address] Emergency CHAYO JASSO, MARGOT Ybarra Via [facility] ER RT LEG PAIN
[2020-01-17] MEDS ORDERED: HYDROcodone/APAP 7.5 MG/325 MG (LORTAB, LORCET PLUS) TABLET PO STA (19:08)
[2020-01-17] MEDS ORDERED: PRD20T PO (19:11)
[2020-01-17] MEDS ORDERED: HYDR-4342 PO (19:11)
--- NOTE | 2020-01-17 19:14 | ED Lower Extremity ---
General Chief Complaint: Lower Extremity Stated Complaint: RT LEG PAIN Nursing Triage Note: pt presents to ed with complaints of r leg pain x 2 weeks, reports buring pain that radiates from her r hip to behind her r knee. Nursing Sepsis Screen: No Definite Risk Source: patient Exam Limitations: no limitations History of Present Illness Date Seen by Provider: Jan 17, 2020 Time Seen by Provider: 19:00 Initial Comments Here with report of right leg pain from behind the knee to the right hip. States anytime she moves or coughs she has pain shooting from her right low back down her right knee. Does have history of right knee fracture of some sort that is currently under evaluation by her primary care physician and orthopedist. She is supposed to get a walker for assistance with paperwork hasn't gone through and that's not helping. She is also out of her hydrocodone because the pain was so bad. She has had pain like this before and received steroids and was hopeful that she can get that. She is having difficulties getting into care provider due to the current pandemic. She did try to call to do this outpatient or via telemedicine but could not get a provider that her here or through her primary care. Denies swelling of her right leg or any new injury. Onset: other (getting worse over the last week) Severity: moderate, severe Pain/Injury Location: right hip, right leg, right other (right low back and hip) Method of Injury: unknown Modifying Factors: Improves With Immobilization; Worse With Movement; Improves With Pain Medication Allergies and Home Medications Allergies Coded Allergies: Iodinated Contrast Media (Verified Allergy, Unknown, 07/12/19) aspirin (Verified Allergy, Unknown, 07/12/19) clindamycin (Verified Allergy, Unknown, 07/12/19) tizanidine (Verified Allergy, Unknown, 01/17/20) Home Medications Epinephrine 0.3 Mg/0.3 Ml Auto.injct, 0.3 MG IJ Q15M PRN for anaphylaxis Prescribed by: JOSIE DEAL on 11/01/192107 Famotidine 20 Mg Tablet, 20 MG PO BID Prescribed by: JOSIE DEAL on 11/01/192107 Hydrocodone/Acetaminophen 1 Each Tablet, 1-2 EACH PO Q6H PRN for PAIN-MODERATE Prescribed by: DOUG TINAJERO MD on 09/18/19 171 Hydrocodone/Acetaminophen 1 Each Tablet, 1 EACH PO Q6H PRN for PAIN-MODERATE (5- 7) Prescribed by: MARGOT DOMINGO on 01/17/201910 Loratadine 10 Mg Tablet, 10 MG PO DAILY Prescribed by: JOSIE DEAL on 11/01/192107 Methylprednisolone 4 Mg Tab.ds.pk, 4 MG PO UD Prescribed by: VIANEY ELIAS on 12/06/19 170 Penicillin V Potassium 500 Mg Tablet, 500 MG PO QID Prescribed by: DOUG TINAJERO MD on 09/18/19 171 Prednisone 20 Mg Tab, 40 MG PO DAILY Prescribed by: ROMARIO DOWELL on 01/03/202041 Prednisone 20 Mg Tab, 40 MG PO DAILY Prescribed by: MARGOT DOMINGO on 01/17/201910 Patient Home Medication List Home Medication List Reviewed: Yes Review of Systems Constitutional: see HPI; No chills, No fever Respiratory: no symptoms reported Cardiovascular: no symptoms reported Musculoskeletal: see HPI, back pain (right low back), joint pain, muscle pain; No muscle weakness Skin: no symptoms reported Psychiatric/Neurological: No Symptoms Reported Past Cklmdam-Sjoiku-Gjmfkc Hx Past Med/Social Hx: Reviewed Nursing Past Med/Soc Hx Patient Social History Alcohol Use: Denies Use Recreational Drug Use: Yes Drug of Choice: marijuana Type Used: Cigarettes Former Smoker, Quit: March 01, 2017 2nd Hand Smoke Exposure: No Recent Foreign Travel: No Contact w/Someone Who Travel: No Recent Infectious Disease Expo: No Recent Hopitalizations: No Immunizations Up To Date Tetanus Booster (TDap): Unknown PED Vaccines UTD: Yes Seasonal Allergies Seasonal Allergies: No Past Medical History Surgeries: Yes (LAP BAND; BACK SURGERY X 3 WITH WOUND DEBRIDEMENTS OF SURGICAL SITE) Abdominal, Section, Ear Surgery, Gallbladder, Orthopedic, Tonsillectomy Respiratory: No Cardiac: No Neurological: No Genitourinary: Yes Kidney Stones Gastrointestinal: No Musculoskeletal: Yes (CHRONIC KNEE PAIN; BACK SURGERY X 3) Arthritis, Chronic Back Pain Endocrine: Yes (MORBID OBESITY) HEENT: Yes (DENTAL CARIES) Cancer: No Psychosocial: No Integumentary: No Blood Disorders: No Family Medical History Reviewed Nursing Family Hx Physical Exam Vital Signs Vital Signs - First Documented 01/17/20 18:24 Temp 36.5 Pulse 99 Resp 18 B/P (MAP) 195/91 (125) Pulse Ox 98 Capillary Refill : Less Than 3 Seconds Height, Weight, BMI Height: '" Weight: lbs. oz. kg; 51.00 BMI Method: General Appearance: WD/WN, no apparent distress Cardiovascular: regular rate, rhythm, no murmur Respiratory: lungs clear, normal breath sounds Hips: right hip limited range of motion (pain), right hip soft tissue tenderness Knees: right knee soft tissue tenderness (behind right knee), right knee other (no swelling noted but tender on movement) Ankles: bilateral ankle non-tender; right ankle normal inspection, right ankle normal range of motion; bilateral ankle other (no swelling or color changes noted) Neurologic/Tendon: normal sensation Neurologic/Psychiatric: alert, oriented x 3 Skin: normal color, warm/dry Progress/Results/Core Measures Results/Orders My Orders Orders - MARGOT DOMINGO MD Prednisone Tablet (Deltasone Tablet) (01/17/20 19:15) Hydrocodone/Apap 7.5/325 Tab (Lortab 7. (01/17/20 19:08) Vital Signs/I&O 01/17/20 18:24 Temp 36.5 Pulse 99 Resp 18 B/P (MAP) 195/91 (125) Pulse Ox 98 Blood Pressure Mean: 125 Progress Progress Note : Progress Note Seen and evaluated. Hydrocodone 7.5/325 one tab by mouth given. Prednisone 40 mg by mouth. We did give her a walker to assist with ambulation and decreased pain. Discharged home with return precautions. Patient verbalize understanding instructions and agreement with plan. She will need to get all further pain medication prescriptions through her primary care doctor is discussed with patient. She verbalizes understanding. Departure Impression Primary Impression: Right leg pain Additional Impression: Sciatica of right side Disposition: 01 HOME, SELF-CARE Condition: Stable Departure-Patient Inst. Decision time for Depature: 19:09 Referrals: NO,LOCAL PHYSICIAN (PCP/Family) Primary Care Physician Patient Instructions: Knee Pain (DC), Sciatica (DC) Add. Discharge Instructions: All discharge instructions reviewed with patient and/or family. Voiced understanding. Take medications as directed. Do not exceed dosing. If you can tolerate, ibuprofen 600 mg every 8 hours as needed for pain and may be helpful. Call your Dr. in the morning for recheck and further evaluation. Return for worse pain, fever, vomiting, weakness, breathing problems or other concerns as needed. You will need to get all further pain medication prescriptions through your primary care doctor. Use walker for assistance while moving about. Continue directions. Her primary care doctor and orthopedist regarding your knee injury. Scripts Prednisone (Prednisone) 20 Mg Tab 40 MG PO DAILY, #12 TAB 0 Refills Prov: MARGOT DOMINGO MD 01/17/20 Hydrocodone/Acetaminophen (Hydrocodone-Acetamin 7.5-325) 1 Each Tablet 1 EACH PO Q6H PRN for PAIN-MODERATE (5-7) for 3 Days, #12 TAB 0 Refills Prov: MARGOT DOMINGO MD 01/17/20 MARGOT DOMINGO MD Jan 17, 2020 19:14
[2020-01-17] MEDS ORDERED: predniSONE 20 MG TAB PO ONE (19:15)
[2020-01-17 19:27] VITALS: BP 149/77
--- NOTE | 2020-01-17 19:27 | NUR ---
PT STATES, "I CAN'T LEAVE UNTIL THIS PREDNISONE AND PAIN PILL KICK IN BECAUSE I JUST CAN'T GET UP." WILL GIVE PT SOME TIME FOR MEDICINE TO WORK.
[2020-01-17] MEDS ORDERED: KETOROLAC 60 MG/2 ML VIAL IM STA (19:48)
[2020-01-17] MEDS ORDERED: KETAMINE HCL 100 MG/ML 5 ML VIAL IM ONE (20:00)
== END 2020-01-17 20:23 | disposition home or self-care (01) ==
LOC: EDUNIT# 18:17 → ER 18:18
DX: M54.41 Lumbago with sciatica, right side (principal); E66.01 Morbid (severe) obesity due to excess calories; Z91.041 Radiographic dye allergy status; Z88.8 Allergy status to other drugs, medicaments and biological substances; Z88.1 Allergy status to other antibiotic agents; Z87.891 Personal history of nicotine dependence; Z68.43 Body mass index [BMI] 50.0-59.9, adult
CPT/HCPCS: 96372; 99284

== ENCOUNTER 2020-01-26 05:13 | Emergency (ER) | payer MEDICARE, MEDICAID ==
[~2020-01-26 05:13] MED LIST changes: +HYDR-4342 PO
--- OUTSIDE RECORDS SUMMARY | 2020-01-26 05:19 | XMS REPORT | Continuity of Care Document ---
Author Organization Unknown Address Unknown Phone Unavailable Allergies Active Description Code Type Severity Reaction Onset Reported/Identified Relationship to Patient Clinical Status Yes aspirin [id number] Drug Allergy Unknown N/A 07/12/2019 Yes clindamycin [id number] Drug Aller gy Unknown N/A 07/12/2019 Yes Iodinated Contrast Media [id number] Drug Allergy Unknown N/A 07/12/2019 Yes tizanidine [id number] Drug Allerg y Unknown N/A 01/17/2020 Medications There is no data. Problems Date [...] OTHER SPECIFIED POSTPROCEDURAL STATES 07/14/2019 AMAN ROBERTSON MD Ot M54.5 LOW BACK PAIN 07/14/2019 AMAN ROBERTSON MD Ot Z87.442 PERSONAL HISTORY OF URINARY CALCULI 07/14/2019 AMAN ROBERTSON MD Ot Z87.891 PERSONAL HISTORY OF NICOTINE DEPENDENCE 07/14/2019 AMAN ROBERTSON MD Ot Z88.1 ALLERGY STATUS TO OTHER ANTIBIOTIC AGENT 07/14/2019 AMAN ROBERTSON MD Ot Z88.6 ALLERGY STATUS TO ANALGESIC AGENT STATUS 07/14/2019 AMAN ROBERTSON MD Ot Z90.89 ACQUIRED ABSENCE OF OTHER ORGANS 07/14/2019 AMAN ROBERTSON MD Ot Z91.041 RADIOGRAPHIC DYE ALLERGY STATUS 07/14/2019 AMAN ROBERTSON MD Ot Z98.890 OTHER SPECIFIED POSTPROCEDURAL STATES 08/24/2019 ROMARIO DOWELL BENEFIT SPECIALIST Ot M25.562 PAIN IN LEFT KNEE 08/24/2019 ROMARIO DOWELL BENEFIT SPECIALIST Ot S80.02XA CONTUSION OF LEFT KNEE, INITIAL ENCOUNTE 08/24/2019 ROMARIO DOWELL APRN Ot W19.XXXA UNSPECIFIED FALL, INITIAL ENCOUNTER 08/24/2019 ROMARIO DOWELL APRN Ot Z87.442 PERSONAL HISTORY OF URINARY CALCULI 08/24/2019 ROMARIO DOWELL APRN Ot Z87.891 PERSONAL HISTORY OF NICOTINE DEPENDENCE 08/24/2019 ROMARIO DOWELL APRN Ot Z88 .1 ALLERGY STATUS TO OTHER ANTIBIOTIC AGENT 08/24/2019 ROMRAIO DOWELL BENEFIT SPECIALIST Ot Z88 .6 ALLERGY STATUS TO ANALGESIC [...] Z87.891 PERSONAL HISTORY OF NICOTINE DEPENDENCE 09/22/2019 DOUG TINAJERO MD Ot Z88. 1 ALLERGY STATUS TO OTHER ANTIBIOTIC AGENT 09/22/2019 DOUG TINAJERO MD Ot Z88. 6 ALLERGY STATUS TO ANALGESIC AGENT STATUS 09/22/2019 DOUG TINAJERO MD Ot Z90. 89 ACQUIRED ABSENCE OF OTHER ORGANS 09/22/2019 DOUG TINAJERO MD Ot Z91.041 RADIOGRAPHIC DYE ALLERGY STATUS 11/01/2019 [...] ALLERGY STATUS TO ANALGESIC AGENT STATUS 11/04/2019 SAY JASSO, JOSIE Cruz Ot Z90. 89 ACQUIRED ABSENCE OF OTHER ORGANS 11/04/2019 SAY JASSO, JOSIE Cruz Ot Z91.041 RADIOGRAPHIC DYE ALLERGY STATUS 12/06/2019 ELMORE , VIANEY K Ot E66.01 MORBID (SEVERE) OBESITY DUE TO EXCESS CA 12/06/2019 ELMORE DO, VIANEY K Ot G89.29 OTHER CHRONIC PAIN 12/06/2019 ELMORE DO, VIANEY K Ot M25.561 PAIN IN RIGHT KNEE 12/06/2019 ELMORE DO, VIANEY K Ot Z68.44 BODY MASS INDEX (BMI) 60.0-69.9, ADULT 12/06/2019 [facility], VIANEY K Ot Z87.891 PERSONAL HISTORY OF NICOTINE DEPENDENCE 12/06/[address] [facility], VIANEY K Ot Z88.1 ALLERGY STATUS TO OTHER ANTIBIOTIC AGENT 12/06/2019 [facility], VIANEY K Ot Z88.6 ALLERGY STATUS TO ANALGESIC AGENT STATUS 12/06/2019 [facility], VIANEY K Ot Z91.041 RADIOGRAPHIC DYE ALLERGY [...] EXCESS CA 01/09/2020 ROMARIO DOWELL APRN Ot F41 .9 ANXIETY DISORDER, UNSPECIFIED 01/09/2020 ROMARIO DOWELL APRN Ot M25.569 PAIN IN UNSPECIFIED KNEE 01/09/2020 ROMARIO DOWELL APRN Ot Z68.43 BODY MASS INDEX (BMI) 50.0-59.9, ADULT 01/09/2020 ROMARIO DOWELL APRN Ot Z79.899 OTHER JAIL (CURRENT) DRUG THERAPY 01/20/2020 MARGOT DOMINGO MD Ot E66.01 MORBID (SEVERE) OBESITY DUE TO EXCESS CA 01/20/2020 MARGOT DOMINGO MD Ot M54.41 LUMBAGO WITH SCIATICA, RIGHT SIDE 01/20/2020 MARGOT DOMINGO MD Ot M79.604 PAIN IN RIGHT LEG 01/20/2020 MARGOT DOMINGO MD Ot Z68.43 BODY MASS INDEX (BMI) 50.0-59.9, ADULT 01/20/2020 MARGOT DOMINGO MD Ot Z87.891 PERSONAL HISTORY OF NICOTINE DEPENDENCE 01/20/2020 MARGOT DOMINGO MD Ot Z88.1 ALLERGY STATUS TO OTHER ANTIBIOTIC AGENT 01/20/2020 MARGOT DOMINGO MD Ot Z88.8 ALLERGY STATUS TO OTH DRUG/MEDS/BIOL SUB 01/20/2020 CHAYO JASSO, MARGOT Ybarra Ot Z91.041 RADIOGRAPHIC DYE ALLERGY STATUS Procedures [...] Status Pt. Type Provider Facility Loc./Unit Complaint [id number] 01/17/2020 18:18:00 020 20:23:00 DIS Outpatient CHAYO JASSO, MARGOT Ybarra Via [facility] ER RT LEG PAIN [id number] 01/03/2020 21:44:00 22:30:00 DIS Outpatient ROMARIO DOWELL APRN [facility] ER ANXIETY [id number] 01/03/2020 20:25:00 21:19:00 DIS Emergency ROMARIO DOWELL APRN Via [facility] ER R KNEE PAIN [id number] 12/06/2019 14:42:00 17:28:00 DIS Emergency JADA THAKKAR, VIANEY K Vi [facility] ER L LEG PAIN/KNOT [id number] 11/01/2019 19:50:00 21:26:00 DIS Emergency SAY JASSO, JOSIE Cruz [facility] ER TOOK ASPIRIN ALLERGIC T O IT [id number] 09/18/2019 16:50:00 17:16:00 DIS Emergency TANVI JASSO, DOUG Smith Via [facility] ER TOOTH PAIN [id number] 08/24/2019 18:57:00 20:08:00 DIS Emergency ROMARIO DOWELL APRN Via [facility] ER L KNEE PAIN [id number] 07/12/2019 16:09:00 17:38:00 DIS Emergency AILYN JASSO, AMAN Aldrich Via [facility] ER BACK PAIN
--- NOTE | 2020-01-26 06:41 | ED Lower Extremity ---
General Chief Complaint: Lower Extremity Stated Complaint: RT KNEE PAIN Nursing Triage Note: TO ED VIA POV AND AMBULATORY WITH WALKER TO ROOM 5. C/O HAVING RIGHT BROKEN KNEE AND BEEN SEEN RECENTLY IN ER FOR SAME COMPLAINT. STATES "I HAVE PLENTY OF PAIN MEDS, BUT THE PAIN IS SO BAD I CAN'T WALK AND HEATING PAD, ETC ISN'T WORKING". STATES PAIN AND CRAMPING BEHING RIGHT KNEE AND CALF AND MUSCLES ARE "HARD A ROCK". TOOK OXYCODONE AT 0100. Nursing Sepsis Screen: No Definite Risk Source: patient Exam Limitations: no limitations History of Present Illness Date Seen by Provider: Jan 26, 2020 Time Seen by Provider: 06:28 Initial Comments Patient presents to ER by private conveyance with walker and chief complaint that she has chronic knee pain she's been working with Dr. Ruiz for the past several weeks. She had an MRI saying that there was a fracture somewhere in her knee. She is to stay off it using a walker. She has been using ibuprofen twice a day as well as opiate pain meds. She has some muscle spasms in her thigh above her knee. She is afraid to use muscle relaxants because she had a reaction formation related to a panic attack so she avoids all muscle relaxants from now on. She has an appointment at 10:30 this morning with her primary care doctor tomorrow. She says that in the past when this happens a shot of Toradol has made it go away and she would like to try that today. Last dose of ibuprofen was yesterday afternoon. She has tried heat, topical creams, warm baths with Epson salt. She's having no numbness tingling or loss of control of bowel or bladder. Allergies and Home Medications Allergies Coded Allergies: Iodinated Contrast Media (Verified Allergy, Unknown, 07/12/19) aspirin (Verified Allergy, Unknown, 07/12/19) clindamycin (Verified Allergy, Unknown, 07/12/19) tizanidine (Verified Allergy, Unknown, 01/17/20) Home Medications Epinephrine 0.3 Mg/0.3 Ml Auto.injct, 0.3 MG IJ Q15M PRN for anaphylaxis Prescribed by: JOSIE DEAL on 11/01/192107 Famotidine 20 Mg Tablet, 20 MG PO BID Prescribed by: JOSIE DEAL on 11/01/192107 Hydrocodone/Acetaminophen 1 Each Tablet, 1-2 EACH PO Q6H PRN for PAIN-MODERATE Prescribed by: DOUG TINAJERO MD on 09/18/191713 Hydrocodone/Acetaminophen 1 Each Tablet, 1 EACH PO Q6H PRN for PAIN-MODERATE (5- 7) Prescribed by: MARGOT DOMINGO on 01/17/201910 Loratadine 10 Mg Tablet, 10 MG PO DAILY Prescribed by: JOSIE DEAL on 11/01/192107 Methylprednisolone 4 Mg Tab.ds.pk, 4 MG PO UD Prescribed by: VIANEY ELIAS on 12/06/191703 Penicillin V Potassium 500 Mg Tablet, 500 MG PO QID Prescribed by: DOUG TINAJERO MD on 09/18/191712 Prednisone 20 Mg Tab, 40 MG PO DAILY Prescribed by: ROMARIO DOWELL on 01/03/202041 Prednisone 20 Mg Tab, 40 MG PO DAILY Prescribed by: MARGOT DOMINGO on 01/17/201910 Patient Home Medication List Home Medication List Reviewed: Yes Review of Systems Constitutional: No chills EENTM: No ear discharge, No ear pain Respiratory: No cough, No short of breath Cardiovascular: No chest pain, No palpitations Gastrointestinal: No abdominal pain, No nausea Musculoskeletal: see HPI, back pain, joint pain All Other Systems Reviewed Negative Unless Noted: Yes Past Luxyxrl-Phaefz-Wskgim Hx Patient Social History Alcohol Use: Denies Use Recreational Drug Use: Yes Drug of Choice: marijuana Smoking Status: Former Smoker Type Used: Cigarettes Former Smoker, Quit: March 01, 2017 2nd Hand Smoke Exposure: No Recent Foreign Travel: No Contact w/Someone Who Travel: No Recent Infectious Disease Expo: No Recent Hopitalizations: No Physical Abuse: No Sexual Abuse: No Mistreated: No Fear: No Immunizations Up To Date Tetanus Booster (TDap): Unknown PED Vaccines UTD: Yes Seasonal Allergies Seasonal Allergies: No Past Medical History Surgeries: Yes (LAP BAND; BACK SURGERY X 3 WITH WOUND DEBRIDEMENTS OF SURGICAL SITE) Abdominal, Section, Ear Surgery, Gallbladder, Orthopedic, Tonsillectomy Respiratory: No Cardiac: No Neurological: No Genitourinary: Yes Kidney Stones Gastrointestinal: No Musculoskeletal: Yes (CHRONIC KNEE PAIN; BACK SURGERY X 3) Arthritis, Chronic Back Pain Endocrine: Yes (MORBID OBESITY) HEENT: Yes (DENTAL CARIES) Cancer: No Psychosocial: No Integumentary: No Blood Disorders: No Physical Exam Vital Signs Vital Signs - First Documented 01/26/20 06:00 Temp 36.5 Pulse 91 Resp 18 B/P (MAP) 187/92 (123) Capillary Refill : Less Than 3 Seconds Height, Weight, BMI Height: '" Weight: lbs. oz. kg; 51.00 BMI Method: General Appearance: WD/WN, mild distress HEENT: PERRL/EOMI, pharynx normal Neck: full range of motion, normal inspection Cardiovascular: normal peripheral pulses, regular rate, rhythm Respiratory: no respiratory distress, no accessory muscle use Back: normal inspection, vertebral tenderness Knees: bilateral knee normal inspection, bilateral knee normal range of motion Neurologic/Tendon: normal sensation, normal motor functions Neurologic/Psychiatric: alert, normal mood/affect, oriented x 3 Skin: normal color, warm/dry Progress/Results/Core Measures Results/Orders My Orders Orders - JOSIE DEAL Ketorolac Injection (Toradol Injection) (01/26/20 06:45) Vital Signs/I&O 01/26/20 06:00 Temp 36.5 Pulse 91 Resp 18 B/P (MAP) 187/92 (123) Blood Pressure Mean: 123 Progress Progress Note : Time: 06:46 Progress Note Toradol 60 mg IM. Departure Impression Primary Impression: Chronic knee pain Qualified Codes: M25.561 - Pain in right knee; G89.29 - Other chronic pain Disposition: 01 HOME, SELF-CARE Condition: Stable Departure-Patient Inst. Decision time for Depature: 06:47 Referrals: NO,LOCAL PHYSICIAN (PCP/Family) Primary Care Physician Patient Instructions: Chronic Knee Pain Add. Discharge Instructions: Please keep your follow-up appointments. All discharge instructions reviewed with patient and/or family. Voiced understanding. JOSIE DEAL Jan 26, 2020 06:41
[2020-01-26] MEDS ORDERED: KETOROLAC 60 MG/2 ML VIAL IM ONE (06:45)
[2020-01-26 07:20] VITALS: BP 169/90
== END 2020-01-26 07:20 | disposition home or self-care (01) ==
LOC: EDUNIT# 05:13 → ER 05:15
DX: M25.561 Pain in right knee (principal); G89.29 Other chronic pain; E66.01 Morbid (severe) obesity due to excess calories; Z87.442 Personal history of urinary calculi; Z87.891 Personal history of nicotine dependence; Z88.8 Allergy status to other drugs, medicaments and biological substances
CPT/HCPCS: 99284

== ENCOUNTER 2020-04-16 23:06 | Emergency (ER) | payer MEDICARE, MEDICAID ==
[~2020-04-16] VITALS: Ht 179.8 cm; Wt 157.8 kg
--- OUTSIDE RECORDS SUMMARY | 2020-04-16 23:12 | XMS REPORT | Continuity of Care Document ---
Author Organization Unknown Address Unknown Phone Unavailable Allergies Active Description Code Type Severity Reaction Onset Reported/Identified Relationship to Patient Clinical Status Yes aspirin [id number] Drug Allergy Unknown N/A 07/12/2019 Yes clindamycin [id number] Drug Aller gy Unknown N/A 07/12/2019 Yes Iodinated Contrast Media [id number] Drug Allergy Unknown N/A 07/12/2019 Yes tizanidine [id number] Drug Allerg y Unknown N/A 01/17/2020 Medications [...] OTHER SPECIFIED POSTPROCEDURAL STATES 08/24/2019 ROMARIO DOWELL ACUPUNCTURE PHYSICIAN Ot M25.562 PAIN IN LEFT KNEE 08/24/2019 ROMARIO DOWELL ACUPUNCTURE PHYSICIAN Ot S80.02XA CONTUSION OF LEFT KNEE, INITIAL ENCOUNTE 08/24/2019 ROMARIO DOWELL APRN Ot W19.XXXA UNSPECIFIED FALL, INITIAL ENCOUNTER 08/24/2019 ROMARIO DOWELL APRN Ot Z87.442 PERSONAL HISTORY OF URINARY CALCULI 08/24/2019 ROMARIO DOWELL APRN Ot Z87.891 PERSONAL HISTORY OF NICOTINE DEPENDENCE 08/24/2019 ROMARIO DOWELL APRN Ot Z88 .1 ALLERGY STATUS TO OTHER ANTIBIOTIC AGENT 08/24/2019 ROMARIO DOWELL ACUPUNCTURE PHYSICIAN Ot Z88 .6 ALLERGY STATUS TO ANALGESIC [...] Z91.041 RADIOGRAPHIC DYE ALLERGY STATUS 09/22/2019 DOUG TNIAJERO MD Ot K02. 9 DENTAL CARIES, UNSPECIFIED [...] Ot Z91.041 RADIOGRAPHIC DYE ALLERGY STATUS 12/06/2019 RESCUE , VIANEY K Ot E66.01 MORBID (SEVERE) OBESITY DUE TO EXCESS CA 12/06/2019 RESCUE DO, VIANEY K Ot G89.29 OTHER CHRONIC PAIN 12/06/2019 RESCUE DO, VIANEY K Ot M25.561 PAIN IN RIGHT KNEE 12/06/2019 RESCUE DO, VIANEY K Ot Z68.44 BODY MASS INDEX (BMI) 60.0-69.9, ADULT 12/06/2019 [facility], VIANEY K Ot Z87.891 PERSONAL HISTORY OF NICOTINE DEPENDENCE 12/06/2019 [facility], VIANEY K Ot Z88.1 ALLERGY STATUS TO OTHER ANTIBIOTIC AGENT 12/06/2019 [facility], VIANEY K Ot Z88.6 ALLERGY STATUS TO ANALGESIC AGENT STATUS 12/06/2019 [facility], VIANEY K Ot Z91.041 RADIOGRAPHIC DYE ALLERGY STATUS 01/03/2020 ROMARIO DOWELL APRN Ot E66.01 MORBID (SEVERE) OBESITY DUE TO EXCESS CA 01/03/2020 ROMARIO DOEWLL APRN Ot G89.29 OTHER CHRONIC PAIN 01/03/2020 ROMARIO DOWELL APRN Ot M19.91 PRIMARY OSTEOARTHRITIS, UNSPECIFIED SITE 01/03/2020 ROMARIO DOWELL APRN Ot M25.561 PAIN IN RIGHT KNEE 01/03/2020 ROMARIO DOWELL APRN Ot Z68.43 BODY MASS INDEX (BMI) 50.0-59.9, ADULT 01/03/2020 ROMARIO DOWELL APRN Ot Z87.891 PERSONAL HISTORY OF NICOTINE DEPENDENCE 01/03/2020 ROMARIO DOWELL APRN Ot E66.01 MORBID (SEVERE) OBESITY DUE TO EXCESS CA 01/03/2020 ROMARIO DOWELL APRN Ot F41 .9 ANXIETY DISORDER, UNSPECIFIED 01/03/2020 ROMARIO DOWELL APRN Ot M25.569 PAIN IN UNSPECIFIED KNEE 01/03/2020 ROMARIO DOWELL APRN Ot Z68.43 BODY MASS INDEX (BMI) 50.0-59.9, ADULT 01/03/2020 ROMARIO DOWELL APRN Ot Z79.899 OTHER SNF (CURRENT) DRUG THERAPY 01/09/2020 ROMARIO DOWELL ACUPUNCTURE PHYSICIAN Ot E66.01 MORBID (SEVERE) OBESITY DUE TO EXCESS CA 01/09/2020 ROMARIO DOWELL ACUPUNCTURE PHYSICIAN Ot G89.29 OTHER CHRONIC PAIN 01/09/2020 ROMARIO DOWELL APRN Ot M19.91 PRIMARY OSTEOARTHRITIS, UNSPECIFIED SITE 01/09/2020 ROMARIO DOWELL ACUPUNCTURE PHYSICIAN Ot M25.561 PAIN IN RIGHT KNEE 01/09/2020 ROMARIO DOWELL ACUPUNCTURE PHYSICIAN Ot Z68.43 BODY MASS INDEX (BMI) 50.0-59.9, ADULT 01/09/2020 ROMARIO DOWELL APRN Ot Z87.891 PERSONAL HISTORY OF NICOTINE DEPENDENCE 01/09/2020 ROMARIO DOWELL ACUPUNCTURE PHYSICIAN Ot E66.01 MORBID (SEVERE) OBESITY DUE TO EXCESS CA 01/09/2020 DOWELLROMARIO ACUPUNCTURE PHYSICIAN Ot G89.29 OTHER CHRONIC PAIN 01/09/2020 ROMARIO DOWELL APRN Ot M19.91 PRIMARY OSTEOARTHRITIS, UNSPECIFIED SITE 01/09/2020 ROMARIO DOWELL ACUPUNCTURE PHYSICIAN Ot M25.561 PAIN IN RIGHT KNEE 01/09/2020 ROMARIO DOWELL APRN Ot Z68.43 BODY MASS INDEX (BMI) 50.0-59.9, ADULT 01/09/2020 ROMARIO DOWELL ACUPUNCTURE PHYSICIAN Ot Z87.891 PERSONAL HISTORY OF NICOTINE DEPENDENCE 01/09/2020 ROMARIO DOWELL ACUPUNCTURE PHYSICIAN Ot E66.01 MORBID (SEVERE) OBESITY DUE TO EXCESS CA 01/09/2020 ROMARIO DOWELL ACUPUNCTURE PHYSICIAN Ot F41 .9 ANXIETY DISORDER, UNSPECIFIED 01/09/2020 ROMARIO DOWELL ACUPUNCTURE PHYSICIAN Ot M25.569 PAIN IN UNSPECIFIED KNEE 01/09/2020 ROMARIO DOWELL ACUPUNCTURE PHYSICIAN Ot Z68.43 BODY MASS INDEX (BMI) 50.0-59.9, ADULT 01/09/2020 ROMARIO DOWELL ACUPUNCTURE PHYSICIAN Ot Z79.899 OTHER DESK MAKER (CURRENT) DRUG THERAPY 01/17/2020 MARGOT DOMINGO MD Ot E66.01 MORBID (SEVERE) OBESITY DUE TO EXCESS CA 01/17/2020 MARGOT DOMINGO MD Ot M54.41 LUMBAGO WITH SCIATICA, RIGHT SIDE 01/17/2020 MARGOT DOMINGO MD Ot M79.604 PAIN IN RIGHT LEG 01/17/2020 MARGOT DOMINGO MD Ot Z68.43 BODY MASS INDEX (BMI) 50.0-59.9, ADULT 01/17/2020 MARGOT DOMINGO MD Ot Z87.891 PERSONAL HISTORY OF NICOTINE DEPENDENCE 01/17/2020 MARGOT DOMINGO MD Ot Z88.1 ALLERGY STATUS TO OTHER ANTIBIOTIC AGENT 01/17/2020 MARGOT DOMINGO MD Ot Z88.8 ALLERGY STATUS TO OTH DRUG/MEDS/BIOL SUB 01/17/2020 MARGOT DOMINGO MD Ot Z91.041 RADIOGRAPHIC DYE ALLERGY STATUS 01/20/2020 MARGOT DOMINGO MD Ot E66.01 MORBID (SEVERE) OBESITY DUE TO EXCESS CA 01/20/2020 MARGOT DOMINGO MD Ot M54.41 LUMBAGO WITH SCIATICA, RIGHT SIDE 01/20/2020 MARGOT DOMINGO MD Ot M79.604 PAIN IN RIGHT LEG 01/20/2020 MARGOT DOMINGO MD Ot Z68.43 BODY MASS INDEX (BMI) 50.0-59.9, ADULT 01/20/2020 MARGOT DOMINGO MD Ot Z87.891 PERSONAL HISTORY OF NICOTINE DEPENDENCE 01/20/2020 MARGOT DOMINGO MD, Ot Z88.1 ALLERGY STATUS TO OTHER ANTIBIOTIC AGENT 01/20/2020 MARGOT DOMINGO MD, Ot Z88.8 ALLERGY STATUS TO OTH DRUG/MEDS/BIOL SUB 01/20/2020 MARGOT DOMINGO MD Ot Z91.041 RADIOGRAPHIC DYE ALLERGY STATUS 01/26/2020 JOSIE DEAL MD Ot E66. 01 MORBID (SEVERE) OBESITY DUE TO EXCESS CA 01/26/2020 JOSIE DEAL MD Ot G89. 29 OTHER CHRONIC PAIN 01/26/2020 JOSIE DEAL MD Ot M25.561 PAIN IN RIGHT KNEE 01/26/2020 JOSIE DEAL MD Ot Z87.442 PERSONAL HISTORY OF URINARY CALCULI 01/26/2020 JOSIE DEAL MD Ot Z87.891 PERSONAL HISTORY OF NICOTINE DEPENDENCE 01/26/2020 JOSIE DEAL MD Ot Z88. 8 ALLERGY STATUS TO OTH DRUG/MEDS/BIOL SUB 01/27/2020 JOSIE DEAL MD Ot E66. 01 MORBID (SEVERE) OBESITY DUE TO EXCESS CA 01/27/2020 JOSIE DEAL MD Ot G89. 29 OTHER CHRONIC PAIN 01/27/2020 JOSIE DEAL MD Ot M25.561 PAIN IN RIGHT KNEE 01/27/2020 JOSIE DEAL MD Ot Z87.442 PERSONAL HISTORY OF URINARY CALCULI 01/27/2020 JOSIE DEAL MD Ot Z87.891 PERSONAL HISTORY OF NICOTINE DEPENDENCE 01/27/2020 JOSIE DEAL MD, Ot Z88. 8 ALLERGY STATUS TO [facility] DRUG/MEDS/BIOL SUB Procedures There is no data. Results Test [...] Status Pt. Type Provider Facility Loc./Unit Complaint [id number] 01/26/2020 05:15:00 07:20:00 DIS Emergency JOSIE DEAL MD Via [facility] ER RT KNEE PAIN [id number] 01/17/2020 18:18:00 20:23:00 DIS Emergency CHAYO JASSO, MARGOT Ybarra Via [facility] ER RT LEG PAIN [id number] 01/03/2020 21:44:00 22:30:00 DIS Emergency ROMARIO DOWELL APRN Via [facility] ER ANXIETY [id number] 01/03/2020 20:25:00 21:19:00 DIS Emergency ROMARIO DOWELL APRN Via [facility] ER R KNEE PAIN [id number] 12/06/2019 14:42:00 17:28:00 DIS Emergency VIANEY ELIAS DO [facility] ER L LEG PAIN/KNOT [id number] 11/01/2019 19:50:00 21:26:00 DIS Emergency JOSIE DEAL MD Via [facility] ER TOOK ASPIRIN ALLERGIC T O IT [id number] 09/18/2019 16:50:00 019 17:16:00 DIS Emergency TANVI JASSO, DOUG Smith [facility] ER TOOTH PAIN [id number] 08/24/2019 18:57:00 20:08:00 DIS Emergency ROMARIO DOWELL APRN [facility] ER L KNEE PAIN [id number] 07/12/2019 16:09:00 019 17:38:00 DIS Emergency AILYN JASSO, AMAN Aldrich [facility] ER BACK PAIN
[2020-04-16] MEDS ORDERED: LORazepam INJ 2 MG/ML (ATIVAN) VIAL IVP ONE (23:30)
--- NOTE | 2020-04-16 23:40 | ED Psychosocial ---
General Chief Complaint: Psych/Social Disorder Stated Complaint: PANIC ATTACK Nursing Triage Note: PATIENT STATES PANIC ATTACK. STATES TOOK PRN XANAX 0.5MG 1 HR AGO Source: patient Exam Limitations: no limitations History of Present Illness Date Seen by Provider: Apr 16, 2020 Time Seen by Provider: 23:25 Initial Comments This 44-year-old woman presents to the emergency room with panic attack. She has had experiences like this in the past. She has tried Xanax 0.5 mg 3 today without significant benefit. She also takes Cymbalta 30 mg daily. She is working with her primary care provider on balancing her anxiety treatments. She has appointment this coming . Patient cites the current sociopolitical environment and COVID19 pandemic as triggers for her anxiety. Allergies and Home Medications Allergies Coded Allergies: Iodinated Contrast Media (Verified Allergy, Unknown, 07/12/19) aspirin (Verified Allergy, Unknown, 07/12/19) clindamycin (Verified Allergy, Unknown, 07/12/19) tizanidine (Verified Allergy, Unknown, 01/17/20) Home Medications Alprazolam 0.5 Mg Tablet, 0.5 MG PO BID PRN for ANXIETY Prescribed by: AMAN DRISCOLL on 04/17/20 0055 Epinephrine 0.3 Mg/0.3 Ml Auto.injct, 0.3 MG IJ Q15M PRN for anaphylaxis Prescribed by: JOSIE DEAL on 11/01/192107 Famotidine 20 Mg Tablet, 20 MG PO BID Prescribed by: JOSIE DEAL on 11/01/192107 Hydrocodone/Acetaminophen 1 Each Tablet, 1-2 EACH PO Q6H PRN for PAIN-MODERATE Prescribed by: DOUG TINAJERO MD on 09/18/191713 Hydrocodone/Acetaminophen 1 Each Tablet, 1 EACH PO Q6H PRN for PAIN-MODERATE (5- 7) Prescribed by: MARGOT DOMINGO on 01/17/201910 Loratadine 10 Mg Tablet, 10 MG PO DAILY Prescribed by: JOSIE DEAL on 11/01/192107 Methylprednisolone 4 Mg Tab.ds.pk, 4 MG PO UD Prescribed by: VIANEY ELIAS on 12/06/19 170 Penicillin V Potassium 500 Mg Tablet, 500 MG PO QID Prescribed by: DOUG TINAJERO MD on 12/7/19 1713 Prednisone 20 Mg Tab, 40 MG PO DAILY Prescribed by: ROMARIO DOWELL on 01/03/202041 Prednisone 20 Mg Tab, 40 MG PO DAILY Prescribed by: MARGOT DOMINGO on 01/17/20 191 Patient Home Medication List Home Medication List Reviewed: Yes Review of Systems Constitutional: no symptoms reported EENTM: no symptoms reported Respiratory: no symptoms reported Cardiovascular: no symptoms reported Gastrointestinal: no symptoms reported Genitourinary: no symptoms reported Musculoskeletal: no symptoms reported Skin: no symptoms reported Psychiatric/Neurological: See HPI Past Wwfvsbo-Chrelk-Rupnkj Hx Patient Social History Alcohol Use: Denies Use Recreational Drug Use: Yes Drug of Choice: marijuana Smoking Status: Current Everyday Smoker Type Used: Cigarettes Former Smoker, Quit: March 01, 2017 2nd Hand Smoke Exposure: No Recent Foreign Travel: No Contact w/Someone Who Travel: No Recent Infectious Disease Expo: No Recent Hopitalizations: No Physical Abuse: No Sexual Abuse: No Mistreated: No Fear: No Immunizations Up To Date Tetanus Booster (TDap): Unknown PED Vaccines UTD: Yes Seasonal Allergies Seasonal Allergies: No Past Medical History Surgeries: Yes (LAP BAND; BACK SURGERY X 3 WITH WOUND DEBRIDEMENTS OF SURGICAL SITE) Abdominal, Section, Ear Surgery, Gallbladder, Orthopedic, Tonsillectomy Respiratory: No Cardiac: No Neurological: No Genitourinary: Yes Kidney Stones Gastrointestinal: No Musculoskeletal: Yes (CHRONIC KNEE PAIN; BACK SURGERY X 3) Arthritis, Chronic Back Pain Endocrine: Yes (MORBID OBESITY) HEENT: Yes (DENTAL CARIES) Cancer: No Psychosocial: Yes Anxiety Integumentary: No Blood Disorders: No Physical Exam Vital Signs - First Documented 04/16/20 04/17/20 23:15 00:45 Temp 36.0 Pulse 100 Resp 26 B/P (MAP) 168/100 (122) Pulse Ox 99 O2 Delivery Room Air Capillary Refill : Less Than 3 Seconds Height, Weight, BMI Height: '" Weight: lbs. oz. kg; 48.00 BMI Method: General Appearance: WD/WN, mild distress (anxiety), obese HEENT: normal ENT inspection Neck: normal inspection Respiratory: lungs clear, normal breath sounds, no respiratory distress Cardiovascular: regular rate, rhythm, no edema, no gallop Extremities: normal inspection, no pedal edema Appearance/Memory: appropriate appearance, appropriate insight Behavior/Eye Contact: cooperative, good eye contact, normal speech Thoughts/Hallucinations: normal thought pattern, no apparent hallucination Skin: normal color, warm/dry Progress/Results/Core Measures Results/Orders My Orders Orders - AMAN ROBERTSON MD Ed Iv/Invasive Line Start (04/16/20 23:27) Lorazepam Injection (Ativan Injection) (04/16/20 23:30) Ketorolac Injection (Toradol Injection) (04/17/20 00:15) Medications Given in ED Current Medications Medications Dose Ordered Sig/Onel Route Start Time Stop Time Status Last Admin Dose Admin Ketorolac Tromethamine 15 mg ONCE ONCE IVP 04/17/20 00:15 04/17/20 00:16 DC 04/17/20 00:35 15 MG Lorazepam 1 mg ONCE ONCE IVP 04/16/20 23:30 04/16/20 23:31 DC 04/16/20 23:38 1 MG Vital Signs/I&O 04/16/20 04/17/20 23:15 00:45 Temp 36.0 Pulse 100 86 Resp 26 16 B/P (MAP) 168/100 (122) 151/89 Pulse Ox 99 O2 Delivery Room Air Room Air Blood Pressure Mean: 122 Progress Progress Note : Progress Note Patient received Ativan by IV route with near complete resolution of anxiety/panic. See discharge instructions regarding our discussion. Departure Impression Primary Impression: Anxiety attack Additional Impression: Acute headache Qualified Codes: R51 - Headache Disposition: 01 HOME, SELF-CARE Condition: Improved Departure-Patient Inst. Decision time for Depature: 00:46 Referrals: NO,LOCAL PHYSICIAN (PCP/Family) Primary Care Physician Patient Instructions: Anxiety, Adult (DC) Add. Discharge Instructions: Increase her Cymbalta dose to 30 mg twice daily. Use your Xanax only for more severe episodes of anxiety. Keep your appointment on and notify your doctor tomorrow morning of your ER visit. Return to care if you have worsening symptoms despite following these instructions. All discharge instructions reviewed with patient and/or family. Voiced understanding. Scripts Alprazolam (Xanax) 0.5 Mg Tablet 0.5 MG PO BID PRN for ANXIETY, #10 TAB Prov: AMAN ROBERTSON MD 04/17/20 AMAN ROBERTSON MD Apr 16, 2020 23:40
[2020-04-17] MEDS ORDERED: KETOROLAC 30 MG/ML VIAL IVP ONE (00:15)
[2020-04-17 00:45] VITALS: BP 151/89
[2020-04-17] MEDS ORDERED: ALPR0.5T PO (00:54)
== END 2020-04-17 01:08 | disposition home or self-care (01) ==
LOC: EDUNIT# 23:06 → ER 23:08
DX: F41.9 Anxiety disorder, unspecified (principal); R51 Headache; M25.569 Pain in unspecified knee; M54.9 Dorsalgia, unspecified; E66.01 Morbid (severe) obesity due to excess calories; Z79.899 Other long term (current) drug therapy; Z87.891 Personal history of nicotine dependence; Z88.1 Allergy status to other antibiotic agents; Z88.8 Allergy status to other drugs, medicaments and biological substances

== ENCOUNTER 2020-05-17 22:27 | Emergency (ER) | payer MEDICARE, MEDICAID ==
[~2020-05-17] VITALS: Ht 178 cm; Wt 165.8 kg
[~2020-05-17 22:27] MED LIST changes: +ALPR0.5T PO; +HYDR-3817 PO; -HYDR-4342 PO
--- OUTSIDE RECORDS SUMMARY | 2020-05-17 22:32 | XMS REPORT | Continuity of Care Document ---
Author Organization Unknown Address Unknown Phone Unavailable Allergies Active Description Code Type Severity Reaction Onset Reported/Identified Relationship to Patient Clinical Status Yes aspirin [id number] Drug Allergy Unknown N/A 07/12/2019 Yes clindamycin [id number] Drug Aller gy Unknown N/A 07/12/2019 Yes Iodinated Contrast Media [id number] Drug Allergy Unknown N/A 07/12/2019 Yes tizanidine [id number] Drug Allerg y Unknown N/A 01/17/2020 Medications [...] ACQUIRED ABSENCE OF OTHER ORGANS 07/12/2019 AMAN ROBERSTON MD Ot Z91.041 RADIOGRAPHIC DYE ALLERGY STATUS [...] OTHER SPECIFIED POSTPROCEDURAL STATES 08/24/2019 ROMARIO DOWELL BILLING DEPARTMENT SUPERVISOR Ot M25.562 PAIN IN LEFT KNEE 08/24/2019 ROMARIO DOWELL BILLING DEPARTMENT SUPERVISOR Ot S80.02XA CONTUSION OF LEFT KNEE, INITIAL ENCOUNTE 08/24/2019 ROMARIO DOWELL APRN Ot W19.XXXA UNSPECIFIED FALL, INITIAL ENCOUNTER 08/24/2019 ROMARIO DOWELL APRN Ot Z87.442 PERSONAL HISTORY OF URINARY CALCULI 08/24/2019 ROMARIO DOWELL APRN Ot Z87.891 PERSONAL HISTORY OF NICOTINE DEPENDENCE 08/24/2019 ROMARIO DOWELL APRN Ot Z88 .1 ALLERGY STATUS TO OTHER ANTIBIOTIC AGENT 08/24/2019 ROMARIO DOWELL BILLING DEPARTMENT SUPERVISOR Ot Z88 .6 ALLERGY STATUS TO ANALGESIC [...] Ot Z91.041 RADIOGRAPHIC DYE ALLERGY STATUS 12/06/2019 [facility] , VIANEY K Ot E66.01 MORBID (SEVERE) OBESITY DUE TO EXCESS CA 12/06/2019 [place] DO, VIANEY K Ot G89.29 OTHER CHRONIC PAIN 12/06/2019 [place] DO, VIANEY K Ot M25.561 PAIN IN RIGHT KNEE 12/06/2019 [place] DO, VIANEY K Ot Z68.44 BODY MASS INDEX (BMI) 60.0-69.9, ADULT 12/06/2019 [facility], VIANEY K Ot Z87.891 PERSONAL HISTORY OF NICOTINE DEPENDENCE 12/06/2019 [facility], VIANEY K Ot Z88.1 ALLERGY STATUS TO OTHER ANTIBIOTIC AGENT 12/06/2019 [facility], VIANEY K Ot Z88.6 ALLERGY STATUS TO ANALGESIC AGENT STATUS 12/06/2019 [facility], VIANEY K Ot Z91.041 RADIOGRAPHIC DYE [...] 01/03/2020 ROMARIO DOWELL APRN Ot Z79.899 OTHER CUSTODIAL (CURRENT) DRUG THERAPY 01/09/2020 ROMARIO DOWELL BILLING DEPARTMENT SUPERVISOR Ot E66.01 MORBID (SEVERE) OBESITY DUE TO EXCESS CA 01/09/2020 ROMARIO DOWELL BILLING DEPARTMENT SUPERVISOR Ot G89.29 OTHER CHRONIC PAIN 01/09/2020 ROMARIO DOWELL APRN Ot M19.91 PRIMARY OSTEOARTHRITIS, UNSPECIFIED SITE 01/09/2020 ROMARIO DOWELL BILLING DEPARTMENT SUPERVISOR Ot M25.561 PAIN IN RIGHT KNEE 01/09/2020 ROMARIO DOWELL BILLING DEPARTMENT SUPERVISOR Ot Z68.43 BODY MASS INDEX (BMI) 50.0-59.9, ADULT 01/09/2020 ROMARIO DOWELL APRN Ot Z87.891 PERSONAL HISTORY OF NICOTINE DEPENDENCE 01/09/2020 ROMARIO DOWELL BILLING DEPARTMENT SUPERVISOR Ot E66.01 MORBID (SEVERE) OBESITY DUE TO EXCESS CA 01/09/2020 DOWELLROMARIO BILLING DEPARTMENT SUPERVISOR Ot G89.29 OTHER CHRONIC PAIN 01/09/2020 ROMARIO DOWELL APRN Ot M19.91 PRIMARY OSTEOARTHRITIS, UNSPECIFIED SITE 01/09/2020 ROMARIO DOWELL BILLING DEPARTMENT SUPERVISOR Ot M25.561 PAIN IN RIGHT KNEE 01/09/2020 ROMARIO ODWELL APRN Ot Z68.43 BODY MASS INDEX (BMI) 50.0-59.9, ADULT 01/09/2020 ROMARIO DOWELL BILLING DEPARTMENT SUPERVISOR Ot Z87.891 PERSONAL HISTORY OF NICOTINE DEPENDENCE 01/09/2020 ROMARIO DOWELL BILLING DEPARTMENT SUPERVISOR Ot E66.01 MORBID (SEVERE) OBESITY DUE TO EXCESS CA 01/09/2020 ROMARIO DOWELL BILLING DEPARTMENT SUPERVISOR Ot F41 .9 ANXIETY DISORDER, UNSPECIFIED 01/09/2020 ROMARIO DOWELL BILLING DEPARTMENT SUPERVISOR Ot M25.569 PAIN IN UNSPECIFIED KNEE 01/09/2020 ROMARIO DOWELL BILLING DEPARTMENT SUPERVISOR Ot Z68.43 BODY MASS INDEX (BMI) 50.0-59.9, ADULT 01/09/2020 ROMARIO DOWELL BILLING DEPARTMENT SUPERVISOR Ot Z79.899 OTHER IMAGING ANALYST (CURRENT) DRUG THERAPY 01/17/2020 MARGOT DOMINGO MD [...] (SEVERE) OBESITY DUE TO EXCESS CA 01/27/2020 SAY JASSO, JOSIE Cruz Ot G89. 29 OTHER CHRONIC PAIN 01/27/2020 SAY JASSO, JOSIE Cruz Ot M25.561 PAIN IN RIGHT KNEE 01/27/2020 JOSIE DEAL MD Ot Z87.442 PERSONAL HISTORY OF URINARY CALCULI 01/27/2020 JOSIE DEAL MD Ot Z87.891 PERSONAL HISTORY OF NICOTINE DEPENDENCE 01/27/2020 SAY JASSO, JOSIE Cruz Ot Z88. 8 ALLERGY STATUS TO OTH DRUG/MEDS/BIOL SUB 04/21/2020 AMAN ROBERTSON MD Ot E66.01 MORBID (SEVERE) OBESITY DUE TO EXCESS CA 04/21/2020 AMAN ROBERTSON MD Ot F41.0 PANIC DISORDER [EPISODIC PAROXYSMAL ANXI 04/21/2020 AMAN ROBERTSON MD Ot F41.9 ANXIETY DISORDER, UNSPECIFIED 04/21/2020 AMAN ROBERTSON MD Ot M25.569 PAIN IN UNSPECIFIED KNEE 04/21/2020 AMAN ROBERTSON MD Ot M54.9 DORSALGIA, UNSPECIFIED 04/21/2020 AMAN ROBERTSON MD Ot R51 HEADACHE 04/21/2020 AMAN ROBERTSON MD Ot Z79.899 OTHER CUSTODIAL (CURRENT) DRUG THERAPY 04/21/2020 AMAN ROBERTSON MD Ot Z87.891 PERSONAL HISTORY OF NICOTINE DEPENDENCE 04/21/2020 AMAN ROBERTSON MD Ot Z88.1 ALLERGY STATUS TO OTHER ANTIBIOTIC AGENT 04/21/2020 AMAN ROBERTSON MD Ot Z88.8 ALLERGY STATUS TO OTH DRUG/MEDS/BIOL SUB 04/25/2020 AMAN ROBERTSON MD Ot E66.01 MORBID (SEVERE) OBESITY DUE TO EXCESS CA 04/25/2020 AMAN ROBERTSON MD Ot F41.0 PANIC DISORDER [EPISODIC PAROXYSMAL ANXI 04/25/2020 AMAN ROBERTSON MD Ot F41.9 ANXIETY DISORDER, UNSPECIFIED 04/25/2020 AMAN ROBERTSON MD Ot M25.569 PAIN IN UNSPECIFIED KNEE 04/25/2020 AMAN ROBERTSON MD, Ot M54.9 DORSALGIA, UNSPECIFIED 04/25/2020 AMAN ROBERTSON MD, Ot R51 HEADACHE 04/25/2020 AMAN ROBERTSON MD, Ot Z79.899 OTHER IMAGING ANALYST (CURRENT) DRUG THERAPY 04/25/2020 AMAN ROBERTSON MD, Ot Z87.891 PERSONAL HISTORY OF NICOTINE DEPENDENCE 04/25/2020 AMAN ROBERTSON MD, Ot Z88.1 ALLERGY STATUS TO OTHER ANTIBIOTIC AGENT 04/25/2020 AMAN ROBERTSON MD, Ot Z88.8 ALLERGY STATUS TO OTH DRUG/MEDS/BIOL SUB Procedures There is no data. [...] Status Pt. Type Provider Facility Loc./Unit Complaint [id number] 04/16/2020 23:08:00 01:08:00 DIS Outpatient AILYN JASSO, AMAN Aldrich [facility] ER PANIC ATTACK [id number] 01/26/2020 05:15:00 07:20:00 DIS Emergency SAY JASSO, JOSIE Cruz [facility] ER RT KNEE PAIN [id number] 01/17/2020 18:18:00 20:23:00 DIS Emergency MARGOT DOMINGO MD [facility] ER RT LEG PAIN [id number] 01/03/2020 21:44:00 22:30:00 DIS Emergency ROMARIO DOWELL APRN [facility] ER ANXIETY [id number] 01/03/2020 20:25:00 21:19:00 DIS Emergency ROMARIO DOWELL APRN [facility] ER R KNEE PAIN [id number] 12/06/2019 14:42:00 17:28:00 DIS Emergency VIANEY ELIAS DO [facility] ER L LEG PAIN/KNOT [id number] 11/01/2019 19:50:00 21:26:00 DIS Emergency SAY JASSO, JOSIE Cruz [facility] ER TOOK ASPIRIN ALLERGIC T O IT [id number] 09/18/2019 16:50:00 17:16:00 DIS Emergency TANVI JASSO, DOUG Smith [facility] ER TOOTH PAIN [id number] 08/24/2019 18:57:00 019 20:08:00 DIS Emergency ROMARIO DOWELL APRN [facility] ER L KNEE PAIN [id number] 07/12/2019 16:09:00 019 17:38:00 DIS Emergency AILYN JASSO, AMAN Aldrich [facility] ER BACK PAIN
[2020-05-17 23:24] VITALS: BP 161/89
[2020-05-17] MEDS ORDERED: OXYC-465 (23:31)
[2020-05-17] MEDS ORDERED: BUSP15TA60 (23:31)
[2020-05-17] MEDS ORDERED: LISI1TAB26 (23:31)
[2020-05-17] MEDS ORDERED: DULO30CA49 (23:31)
--- NOTE | 2020-05-17 23:53 | ED Lower Extremity ---
General Chief Complaint: Lower Extremity Stated Complaint: R KNEE PAIN Nursing Triage Note: RIGHT KNEE PRESSURE, DENIES RECENT INJURY. FALL 10 DAYS AGO. Nursing Sepsis Screen: No Definite Risk Source: patient Exam Limitations: no limitations (ARLEN WEAVER) History of Present Illness Date Seen by Provider: May 17, 2020 Time Seen by Provider: 23:04 Initial Comments This is 44 y/o F who presents to the ED by private vehicle with R knee pain and pressure. Pt reports hx of fall on her porch less than a week ago where she lost her balance and fell on her R knee. States her pain has been getting progressively worse since then and peaked today as she spent the day walking around shopping. She localizes the pain to anterior distal thigh and anteriomedial knee, in the general path of quadriceps tendon. Describes the pain as sharp and states it exacerbates with wt bearing and knee flexion. She reports hx of another fall a few months back where she fell on the same knee and was seen by Dr. Gonzalez at the time. Knee XR at that time showed no acute Fx, only Mild medial joint space loss. States she gets "cortisone knee inj regularly" with her next appointment coming up on the 05/24. She also takes Oxycodone (10mg) for pain; last dose was this AM. States the oxys have not been relieving her pain. Denies hx of blood clots/DVT. Not taking Oral contraceptives. Not currently on blood thinners. Onset: last week Pain/Injury Location: right leg Method of Injury: fell Modifying Factors: Improves With Immobilization; Worse With Movement; Improves With Rest (ARLEN EWAVER) Allergies and Home Medications Allergies Coded Allergies: Iodinated Contrast Media (Verified Allergy, Unknown, 07/12/19) aspirin (Verified Allergy, Unknown, 07/12/19) clindamycin (Verified Allergy, Unknown, 07/12/19) tizanidine (Verified Allergy, Unknown, 01/17/20) Home Medications Alprazolam 0.5 Mg Tablet, 0.5 MG PO BID PRN for ANXIETY Prescribed by: AMAN DRISCOLL on 04/17/20 0055 Famotidine 20 Mg Tablet, 20 MG PO BID Prescribed by: JOSIE DEAL on 11/01/19 3431 Patient Home Medication List Home Medication List Reviewed: Yes (MARGOT DOMINGO MD) Review of Systems Constitutional: no symptoms reported Respiratory: no symptoms reported Cardiovascular: no symptoms reported Musculoskeletal: other (R knee pain) Skin: no symptoms reported Psychiatric/Neurological: Denies Numbness, Denies Paresthesia, Denies Tingling, Denies Weakness (ARLEN WEAVER) Past Okuhxgg-Bninmz-Olkfpg Hx Past Med/Social Hx: Reviewed Nursing Past Med/Soc Hx (MARGOT DOMINGO MD) Patient Social History Alcohol Use: Denies Use Recreational Drug Use: No Drug of Choice: DENIES Smoking Status: Former Smoker Type Used: Cigarettes Former Smoker, Quit: March 01, 2017 2nd Hand Smoke Exposure: No Recent Foreign Travel: No Contact w/Someone Who Travel: No Recent Infectious Disease Expo: No Recent Hopitalizations: No Physical Abuse: No Sexual Abuse: No Mistreated: No Fear: No (ARLEN WEAVER) Immunizations Up To Date Tetanus Booster (TDap): Unknown PED Vaccines UTD: Yes (ARLEN WEAVER) Seasonal Allergies Seasonal Allergies: No (ARLEN WEAVER) Past Medical History Surgeries: Yes (LAP BAND; BACK SURGERY X 3 WITH WOUND DEBRIDEMENTS OF SURGICAL SITE) Abdominal, Section, Ear Surgery, Gallbladder, Orthopedic, Tonsillectomy Respiratory: No Cardiac: Yes Hypertension Neurological: No : No Last Menstrual Period: Mar 18, 2020 Genitourinary: Yes Kidney Stones Gastrointestinal: Yes Gastroesophageal Reflux Musculoskeletal: Yes (CHRONIC KNEE PAIN; BACK SURGERY X 3) Arthritis, Chronic Back Pain Endocrine: Yes (MORBID OBESITY) HEENT: Yes (DENTAL CARIES) Cancer: No Psychosocial: Yes Anxiety Integumentary: No Blood Disorders: No (ARLEN WEAVER) Family Medical History Reviewed Nursing Family Hx (MARGOT DOMINGO MD) Physical Exam Vital Signs Vital Signs - First Documented 05/17/20 23:24 Temp 36.6 Pulse 88 Resp 18 B/P (MAP) 161/89 (113) Pulse Ox 100 O2 Delivery Room Air (MARGOT DOMINGO MD) Vital Signs Capillary Refill : Less Than 3 Seconds (ARLEN WEAVER) Height, Weight, BMI Height: '" Weight: lbs. oz. kg; 52.00 BMI Method: General Appearance: WD/WN, no apparent distress, obese Cardiovascular: regular rate, rhythm, no edema Respiratory: chest non-tender, lungs clear, normal breath sounds Back: normal inspection, no vertebral tenderness Hips: bilateral hip non-tender, bilateral hip normal inspection, bilateral hip normal range of motion Legs: bilateral leg non-tender, bilateral leg normal inspection, bilateral leg other (no calf swelling or erythema; Negative Ketty's sign bilaterally) Knees: bilateral knee normal inspection, bilateral knee no evidence of injury; right knee pain, right knee other (Active and passive ROM of R knee is limited by pain. No obvious deformity, erythema, swelling noted. Negative Marilu and McMury test bilat. Normal Valgus and Varus stress test bilat) Neurologic/Psychiatric: alert, normal mood/affect Skin: normal color, warm/dry (MEG,ARLEN MED STUDEN) General Appearance: WD/WN, no apparent distress Cardiovascular: regular rate, rhythm, no edema Respiratory: lungs clear, normal breath sounds Knees: bilateral knee normal inspection, bilateral knee no evidence of injury; right knee pain, right knee other (Active and passive ROM of R knee is limited by pain. No obvious deformity, erythema, swelling noted. Negative Marilu and McMury test bilat. Normal Valgus and Varus stress test bilat) Neurologic/Psychiatric: alert, normal mood/affect, oriented x 3 Skin: warm/dry, ecchymosis (small area of ecchymosis to the anterior knee) (MARGOT DOMINGO MD) Progress/Results/Core Measures Results/Orders Vital Signs/I&O 05/17/20 23:24 Temp 36.6 Pulse 88 Resp 18 B/P (MAP) 161/89 (113) Pulse Ox 100 O2 Delivery Room Air (MARGOT DOMINGO MD) Blood Pressure Mean: 113 Progress Progress Note : Progress Note I have seen and evaluated the patient and agree with above except as indicated. I have directed the plan of care. Patient is here with right knee pain after a fall a little less than a week ago. States that she felt her leg backwards during the fall. Apparently had small fracture somewhere in the knee that was diagnosed in [place] via MRI but was not seen on x-ray. She follows with Dr. Ruiz and is supposed to get cortisone injection next week. She's had those previously. She is concerned that she might need arthrocentesis. No significant swelling noted. She does have pain across the lateral and medial aspect across the top of the knee. Does have full range of motion but pain with full flexion. Negative drawer or laxity. No indications for arthrocentesis currently. This is discussed with the patient and she was reassured. Discharged home with return precautions. Patient verbalize understanding instructions and agreement with plan. (MARGOT DOMINGO MD) Departure Impression Primary Impression: Internal derangement of right knee Disposition: HOME, SELF-CARE Condition: Stable Departure-Patient Inst. Decision time for Depature: 00:29 (MARGOT DOMINGO MD) Referrals: NO,LOCAL PHYSICIAN (PCP/Family) Primary Care Physician Patient Instructions: Internal Derangement of the Knee (DC) Add. Discharge Instructions: All discharge instructions reviewed with patient and/or family. Voiced understanding. Use ice packs to the knee 20 minutes per hour as needed to reduce swelling and pain. Elevate leg as often as possible. Call Dr. Ruiz for appointment and to discuss recent injury. Return for worse pain, swelling, weakness, breathing problems or other concerns as needed. ARLEN WEAVER [facility] May 17, 2020 23:53 MARGOT DOMINGO MD May 18, 2020 00:30
== END 2020-05-18 00:31 | disposition home or self-care (01) ==
LOC: EDUNIT# 22:27 → ER 22:28
DX: M23.91 Unspecified internal derangement of right knee (principal); F41.9 Anxiety disorder, unspecified; E66.01 Morbid (severe) obesity due to excess calories; Z91.041 Radiographic dye allergy status; Z88.1 Allergy status to other antibiotic agents; Z88.6 Allergy status to analgesic agent; Z88.8 Allergy status to other drugs, medicaments and biological substances; Z87.891 Personal history of nicotine dependence; Z68.43 Body mass index [BMI] 50.0-59.9, adult
CPT/HCPCS: 99283

== ENCOUNTER 2020-10-06 19:06 | Emergency (ER) | payer MEDICARE, MEDICAID ==
[~2020-10-06] VITALS: Ht 175 cm; Wt 158.0 kg
[~2020-10-06 19:06] MED LIST changes: +BUSP15TA60; +DULO30CA49; +LISI1TAB26; +OXYC-556
[2020-10-06 19:31] VITALS: BP 166/109
[2020-10-06] MEDS ORDERED: RX-LORAZEPAM (ATIVAN) 0.5 MG TAB PPK#4 PO STA (19:35)
[2020-10-06] MEDS ORDERED: ALPRAZolam 0.5 MG (XANAX) TAB ONE (19:36)
[2020-10-06] MEDS ORDERED: ALPRAZolam 1 MG (XANAX) TAB PO ONE (19:45)
--- NOTE | 2020-10-06 19:51 | ED Psychosocial ---
General Chief Complaint: Psych/Social Disorder Stated Complaint: PANIC ATTACK Nursing Triage Note: patient complaint of feeling anxious, states hx of panic attacks, has a prescription but was not able to get it filled today. patient denies feeling sucidial Source: patient Exam Limitations: no limitations History of Present Illness Date Seen by Provider: Oct 06, 2020 Time Seen by Provider: 19:26 Initial Comments This 45-year-old woman with panic disorder presents to the emergency room with a panic attack that is typical for her. She has been experiencing less anxiety and panic recently and therefore has not filled her most recent prescription for Xanax. She has a prescription that she can fill tomorrow. Most of her children did not come home for [place] this year due to the pandemic. This created some anxiety for her. She has had 2 panic attacks today. She denies any other symptoms, substance abuse, etc. Her primary care provider is Dr. Eagle in [place]. Allergies and Home Medications Allergies Coded Allergies: Iodinated Contrast Media (Verified Allergy, Unknown, 07/12/19) aspirin (Verified Allergy, Unknown, 07/12/19) clindamycin (Verified Allergy, Unknown, 07/12/19) tizanidine (Verified Allergy, Unknown, 01/17/20) Home Medications Alprazolam 0.5 Mg Tablet, 0.5 MG PO BID PRN for ANXIETY Prescribed by: AMAN DRISCOLL on 04/17/20 0055 Famotidine 20 Mg Tablet, 20 MG PO BID Prescribed by: JOSIE DEAL on 11/01/19 2108 Patient Home Medication List Home Medication List Reviewed: Yes Review of Systems Constitutional: no symptoms reported EENTM: no symptoms reported Respiratory: short of breath (With panic) Cardiovascular: no symptoms reported Gastrointestinal: no symptoms reported Genitourinary: no symptoms reported Musculoskeletal: no symptoms reported Skin: no symptoms reported Psychiatric/Neurological: See HPI Past Eocrlmk-Lacwdk-Pnqeqg Hx Past Med/Social Hx: Reviewed Nursing Past Med/Soc Hx Patient Social History Alcohol Use: Denies Use Recreational Drug Use: No Drug of Choice: DENIES Smoking Status: Former Smoker Type Used: Cigarettes Former Smoker, Quit: March 01, 2017 2nd Hand Smoke Exposure: No Recent Foreign Travel: No Contact w/Someone Who Travel: No Recent Infectious Disease Expo: No Recent Hopitalizations: No Physical Abuse: No Sexual Abuse: No Mistreated: No Fear: No Immunizations Up To Date Tetanus Booster (TDap): Unknown PED Vaccines UTD: Yes Seasonal Allergies Seasonal Allergies: No Past Medical History Surgeries: Yes (LAP BAND; BACK SURGERY X 3 WITH WOUND DEBRIDEMENTS OF SURGICAL SITE) Abdominal, Section, Ear Surgery, Gallbladder, Orthopedic, Tonsillectomy Respiratory: No Cardiac: Yes Hypertension Neurological: No Genitourinary: Yes Kidney Stones Gastrointestinal: Yes Gastroesophageal Reflux Musculoskeletal: Yes (CHRONIC KNEE PAIN; BACK SURGERY X 3) Arthritis, Chronic Back Pain Endocrine: Yes (MORBID OBESITY) HEENT: Yes (DENTAL CARIES) Cancer: No Psychosocial: Yes Anxiety Integumentary: No Blood Disorders: No Physical Exam Vital Signs - First Documented 10/06/20 19:31 Temp 37.0 Pulse 92 Resp 18 B/P (MAP) 166/109 (128) Pulse Ox 100 O2 Delivery Room Air Capillary Refill : Less Than 3 Seconds Height, Weight, BMI Height: '" Weight: lbs. oz. 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 tool operator II-XII Appearance/Memory: appropriate appearance, appropriate insight, no memory impai rment Behavior/Eye Contact: cooperative, good eye contact, normal speech Thoughts/Hallucinations: normal thought pattern, no apparent hallucination, other (Anxious, pacing) Skin: normal color, warm/dry Progress/Results/Core Measures Results/Orders My Orders Orders - AMAN ROBERTSON MD Alprazolam Tablet (Xanax Tablet) (10/06/20 19:45) Rx-Lorazepam (Rx-Ativan) (10/06/20 19:35) Alprazolam Tablet (Xanax Tablet) (10/06/20 19:36) Medications Given in ED Current Medications Medications Dose Ordered Sig/Onel Route Start Time Stop Time Status Last Admin Dose Admin Alprazolam 1 mg ONCE ONCE PO 10/06/20 19:45 10/06/20 19:46 DC 10/06/20 19:43 1 MG Vital Signs/I&O 10/06/20 19:31 Temp 37.0 Pulse 92 Resp 18 B/P (MAP) 166/109 (128) Pulse Ox 100 O2 Delivery Room Air Blood Pressure Mean: 128 Progress Progress Note : Progress Note Patient was given Xanax during the ER stay. This did eventually calm her. She was dispensed with a take-home packet of Ativan. Departure Impression Primary Impression: Panic disorder Disposition: HOME, SELF-CARE Condition: Improved Departure-Patient Inst. Decision time for Depature: 19:49 Referrals: NO,LOCAL PHYSICIAN (PCP/Family) Primary Care Physician Patient Instructions: Panic Disorder Add. Discharge Instructions: Try to find healthy outlets for your anxiety and panic such as exercise, talking to a trusted friend or family member, etc. You may call [phone] ([facility] hotline) if you have uncontrolled symptoms or return to the emergency room. Try to make your take home doses of Ativan last until you are able to follow-up with your prescribing physician. Call or return to care if you have any other questions or concerns. All discharge instructions reviewed with patient and/or family. Voiced understanding. AMAN ROBERTSON MD Oct 06, 2020 19:50
== END 2020-10-06 19:59 | disposition home or self-care (01) ==
LOC: EDUNIT# 19:06 → ER 19:08
DX: F41.0 Panic disorder [episodic paroxysmal anxiety] (principal); E66.01 Morbid (severe) obesity due to excess calories; F41.9 Anxiety disorder, unspecified; K21.9 Gastro-esophageal reflux disease without esophagitis; Z68.43 Body mass index [BMI] 50.0-59.9, adult; Z87.891 Personal history of nicotine dependence; Z91.041 Radiographic dye allergy status; Z88.1 Allergy status to other antibiotic agents; Z88.8 Allergy status to other drugs, medicaments and biological substances
CPT/HCPCS: 99283

== ENCOUNTER 2021-02-08 18:32 | Emergency (ER) | payer MEDICARE, MEDICAID ==
[~2021-02-08] VITALS: Ht 175 cm; Wt 172.0 kg
--- NOTE | 2021-02-08 19:05 | ED GI ---
General Stated Complaint: POST GASTRIC BYPASS AND HERNIA OP/CONSTIPATED Source of Information: Patient History of Present Illness Date Seen by Provider: Feb 08, 2021 Time Seen by Provider: 18:53 Initial Comments PT ARRIVES VIA POV FROM HOME IN [place] C/O CONSTIPATION PT HAD GASTRIC BYPASS AND HERNIA REPAIR SURGERY ON 01/29/[address] LAO AT [facility] HAS HAD ONGOING CONSTIPATION SINCE THEN HAD A SMALL BM ON Friday02/05/21 HAD FOLLOW UP APPOINTMENT WITH DR. LAO'S [facility]TACT C[facility] TEAM LEAD ON 02/06/21, BUT DID NOT DISCUSS THIS ISSUE, AND HAS NOT ATTEMPTED TO CONTACT HIM AT ANY TIME FOR THIS PROBLEM HAS URGE TO HAVE BM, AND HAS ALOT OF PRESSURE IN RECTUM, BUT HAS NOT BEEN ABLE TO PASS ANY STOOL HAS BEEN TAKING OXYCONTIN--LAST DOSE WAS THIS AM HAS BEEN TAKING 2 STOOLS SOFTENERS A DAY, BUT OTHERWISE HAS NOT TAKEN ANYTHING ELSE FOR THIS PROBLEM--HAS NOT TRIED ENEMAS, SUPPOSITORIES, ANY LAXATIVES, OR ATTEMPTED MANUAL DIS-IMPACTION OF STOOL. C/O SLIGHT NAUSEA, BUT NOT NOW, AND NO VOMITING. HAS COMPAZINE BUT HAS NOT USED IT RECENTLY NO FEVER NO URINARY SYMPTOMS PT HAS CONTINUED TO EAT AND DRINK NORMALLY HAS BEEN DRINKING ALOT OF APPLE JUICE, WELL SOME WHITE GRAPE JUICE AND PEACH JUICE. PCP: [facility] IN [place] Allergies and Home Medications Allergies Coded Allergies: Iodinated Contrast Media (Verified Allergy, Unknown, 07/12/19) aspirin (Verified Allergy, Unknown, 07/12/19) clindamycin (Verified Allergy, Unknown, 07/12/19) tizanidine (Verified Allergy, Unknown, 01/17/20) Home Medications Alprazolam 0.5 Mg Tablet, 0.5 MG PO BID PRN for ANXIETY Prescribed by: AMAN DRISCOLL on 04/17/20 0055 Famotidine 20 Mg Tablet, 20 MG PO BID Prescribed by: JOSIE DAEL on 11/01/192 Patient Home Medication List Home Medication List Reviewed: Yes Review of Systems Review of Systems Constitutional: no symptoms reported Gastrointestinal: See HPI Genitourinary: No Symptoms Reported Past Jtrnlsm-Idhkuy-Ifwxws Hx Past Med/Social Hx: Reviewed and Corrections made Patient Social History Drug of Choice: DENIES Smoking Status: Former Smoker Type Used: Cigarettes Former Smoker, Quit: March 01, 2017 2nd Hand Smoke Exposure: No Recent Hopitalizations: No Immunizations Up To Date Tetanus Booster (TDap): Unknown PED Vaccines UTD: Yes Seasonal Allergies Seasonal Allergies: No Past Medical History Surgeries: Yes (LAP BAND; BACK SURGERY X 3 WITH WOUND DEBRIDEMENTS OF SURGICAL SITE) Abdominal, Section, Ear Surgery, Gallbladder, Orthopedic, Tonsillectomy Respiratory: No Cardiac: Yes Hypertension Neurological: No Genitourinary: Yes Kidney Stones Gastrointestinal: Yes Gastroesophageal Reflux Musculoskeletal: Yes (CHRONIC KNEE PAIN; BACK SURGERY X 3) Arthritis, Chronic Back Pain Endocrine: Yes (MORBID OBESITY) HEENT: Yes (DENTAL CARIES) Chronic Ear Infection, Tonsilitis Cancer: No Psychosocial: Yes Anxiety Integumentary: Yes (TATTOOS) Blood Disorders: No Family Medical History PAST SURGICAL HISTORY: -GASTRIC BYPASS AND HERNIA REPAIR 01/29/[address] LAO AT [facility] -PREVIOUS LAP BAND SURGERY -BACK SURGERY X 3 WITH DEBRIDEMENTS OF SURGICAL SITE -CHOLECYSTECTOMY - -BILATERAL MYRINGOTOMY TUBES -TONSILLECTOMY Physical Exam Vital Signs Vital Signs - First Documented 02/08/21 19:01 Temp 36.8 Pulse 86 Resp 20 B/P (MAP) 130/104 (113) Pulse Ox 100 O2 Delivery Room Air Capillary Refill : Height/Weight/BMI Height: '" Weight: lbs. oz. kg; 51.00 BMI Method: General Appearance: no apparent distress, obese (MORBIDLY), other (WALKS UPRIGHT AND MOVES WITHOUT DIFFICULTY) Respiratory: normal breath sounds Cardiovascular: regular rate, rhythm, no murmur Gastrointestinal: normal bowel sounds, non tender, soft, other (SURGICAL SITES ALL HEALING WELL WITH NO SIGNS OF INFECTION, VERY SLIGHT IRRITATION TO WOUND MARGINS TO WOUND IN LEFT UPPER QUADRANT, BUT NO TENDERNESS, NO EDEMA OR SURROUNDING ERYTHEMA OR FLUCTUANCE OR DRAINAGE OR STREAKS. 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 There is no failure, effusion or pneumothorax. There is stool in the colon to the level of the rectal vault. Fecal load is perhaps mildly elevated and mild constipation could not be excluded. No impaction or obstruction; however, there are postoperative changes at the epigastrium. No suspicious calcification. Nonaggressive chondroid type lesion involves the lesser trochanter of the right proximal femur, likely enchondroma. No acute appearing osseous abnormality. IMPRESSION: Mild constipation suggested. No overtly obstructive features or free air. The chest is negative. Reviewed: Reviewed by Me Departure Impression Primary Impression: Constipation Additional Impression: Fecal impaction in rectum Disposition: HOME, SELF-CARE Condition: Stable Departure-Patient Inst. Referrals: NO,LOCAL PHYSICIAN (PCP/Family) Primary Care Physician Patient Instructions: Constipation, Adult (DC), Fecal Impaction (DC) Add. Discharge Instructions: INCREASE YOUR WATER INTAKE USE DULCOLAX SUPPOSITORIES AND FLEET'S ENEMAS FOR BOWEL MOVEMENT YOU MAY NEED TO MANUALLY DIS-IMPACT STOOL IN RECTUM USE MIRALAX EVERY DAY--START WITH USING IT EVERY 2 HOURS UNTIL YOUR STOOLS HAVE CLEARED, THEN DECREASE TO ONCE A DAY FOLLOW UP WITH YOUR SURGEON IF SYMPTOMS PERSIST VIANEY ELIAS DO Feb 08, 2021 19:05
--- NOTE | 2021-02-08 19:33 | Diagnostic Imaging Report ---
INDICATION: Abdominal pain. FINDINGS: The lungs are clear. There is no failure, effusion or pneumothorax. There is stool in the colon to the level of the rectal vault. Fecal load is perhaps mildly elevated and mild constipation could not be excluded. No impaction or obstruction; however, there are postoperative changes at the epigastrium. No suspicious calcification. Nonaggressive chondroid type lesion involves the lesser trochanter of the right proximal femur, likely enchondroma. No acute appearing osseous abnormality. IMPRESSION: Mild constipation suggested. No overtly obstructive features or free air. The chest is negative. Dictated by: Dictated on workstation # [id number]
[2021-02-08 19:42] VITALS: BP 149/93
== END 2021-02-08 19:42 | disposition home or self-care (01) ==
LOC: EDUNIT# 18:32 → ER 18:34
DX: K59.00 Constipation, unspecified (principal); E66.01 Morbid (severe) obesity due to excess calories; F41.9 Anxiety disorder, unspecified; I10 Essential (primary) hypertension; K21.9 Gastro-esophageal reflux disease without esophagitis; Z68.43 Body mass index [BMI] 50.0-59.9, adult; Z91.041 Radiographic dye allergy status; Z88.1 Allergy status to other antibiotic agents; Z88.8 Allergy status to other drugs, medicaments and biological substances; Z87.891 Personal history of nicotine dependence; Z79.899 Other long term (current) drug therapy
CPT/HCPCS: 74022

== ENCOUNTER 2021-03-30 16:49 | Emergency (ER) | payer MEDICARE, MEDICAID ==
[~2021-03-30] VITALS: Ht 175 cm; Wt 163.3 kg
[2021-03-30] MEDS ORDERED: MELO10CA3 PO (17:10)
--- NOTE | 2021-03-30 17:10 | ED Back Pain ---
General Chief Complaint: Back Problems Stated Complaint: BACK PAIN Source of Information: Patient Exam Limitations: No Limitations (ROMARIO DOWELL APRN) History of Present Illness Date Seen by Provider: Mar 30, 2021 Time Seen by Provider: 17:07 Initial Comments ER with an exacerbation of her chronic back pain that she has had for years. Her oxycodone prescription ran out and she cannot get it refilled until . Location: Lumbar Spine, Paraspinous Muscles Timing/Duration: 2-3 Days Severity: Moderate Pain/Injury Location: Back Associated Symptoms: denies symptoms (ROMARIO DOWELL APRN) Allergies and Home Medications Allergies Coded Allergies: Iodinated Contrast Media (Verified Allergy, Unknown, 07/12/19) aspirin (Verified Allergy, Unknown, 07/12/19) clindamycin (Verified Allergy, Unknown, 07/12/19) tizanidine (Verified Allergy, Unknown, 01/17/20) Home Medications Alprazolam 0.5 Mg Tablet, 0.5 MG PO BID PRN for ANXIETY Prescribed by: AMAN DRISCOLL on 04/17/20 0055 Famotidine 20 Mg Tablet, 20 MG PO BID Prescribed by: JOSIE DEAL on 11/01/19 2108 Meloxicam, Submicronized 10 Mg Capsule, 10 MG PO DAILY Prescribed by: ROMARIO DOWELL on 03/30/21 1710 Patient Home Medication List Home Medication List Reviewed: Yes (ROMARIO DOWELL APRN) Review of Systems Constitutional: see HPI EENTM: see HPI Respiratory: no symptoms reported Cardiovascular: no symptoms reported Genitourinary: no symptoms reported Musculoskeletal: no symptoms reported Skin: no symptoms reported Psychiatric/Neurological: No Symptoms Reported (ROMARIO DOWELL APRN) Past Xuyrjhm-Efhbmg-Zyeygj Hx Patient Social History Drug of Choice: DENIES Type Used: Cigarettes Former Smoker, Quit: March 01, 2017 2nd Hand Smoke Exposure: No Recent Hopitalizations: No (ROMARIO DOWELL APRN) Immunizations Up To Date Tetanus Booster (TDap): Unknown PED Vaccines UTD: Yes (ROMARIO DOWELL APRN) Seasonal Allergies Seasonal Allergies: No (ROMARIO DOWELL APRN) Past Medical History Surgeries: Yes (LAP BAND; BACK SURGERY X 3 WITH WOUND DEBRIDEMENTS OF SURGICAL SITE) Abdominal, Section, Ear Surgery, Gallbladder, Orthopedic, Tonsillectomy Respiratory: No Cardiac: Yes Hypertension Neurological: No Genitourinary: Yes Kidney Stones Gastrointestinal: Yes Gastroesophageal Reflux Musculoskeletal: Yes (CHRONIC KNEE PAIN; BACK SURGERY X 3) Arthritis, Chronic Back Pain Endocrine: Yes (MORBID OBESITY) HEENT: Yes (DENTAL CARIES) Chronic Ear Infection, Tonsilitis Cancer: No Psychosocial: Yes Anxiety Integumentary: Yes (TATTOOS) Blood Disorders: No (ROMARIO DOWELL APRN) Family Medical History PAST SURGICAL HISTORY: -GASTRIC BYPASS AND HERNIA REPAIR 01/29/[address] LAO AT [facility] -PREVIOUS LAP BAND SURGERY -BACK SURGERY X 3 WITH DEBRIDEMENTS OF SURGICAL SITE -CHOLECYSTECTOMY - -BILATERAL MYRINGOTOMY TUBES -TONSILLECTOMY (ROMARIO DOWELL APRN) Physical Exam Vital Signs Vital Signs - First Documented 03/30/21 16:55 Temp 36.0 Pulse 99 Resp 18 B/P (MAP) 145/116 (126) Pulse Ox 100 O2 Delivery Room Air (AMAN ROBERTSON MD) Vital Signs Capillary Refill : (ROMARIO DOWELL APRN) Height, Weight, BMI Height: '" Weight: lbs. oz. kg; 56.00 BMI Method: General Appearance: No Apparent Distress, WD/WN Neck: Full Range of Motion, Normal Inspection Respiratory: No Accessory Muscle Use, No Respiratory Distress Gastrointestinal: Non Tender, Soft Extremity: Normal Capillary Refill, Normal Inspection Neurologic/Psychiatric: Alert, Oriented x3 Skin: Normal Color, Warm/Dry (ROMARIO DOWELL APRN) Progress/Results/Core Measures Results/Orders Medications Given in ED Current Medications Medications Dose Ordered Sig/Onel Route Start Time Stop Time Status Last Admin Dose Admin Ketorolac Tromethamine 60 mg ONCE ONCE IM 03/30/21 17:15 03/30/21 17:16 DC 03/30/21 17:35 60 MG Orphenadrine Citrate 60 mg ONCE ONCE IM 03/30/21 17:15 03/30/21 17:16 DC 03/30/21 17:35 60 MG (AMAN ROBERTSON MD) Vital Signs/I&O 03/30/21 03/30/21 16:55 17:50 Temp 36.0 36.0 Pulse 99 99 Resp 18 18 B/P (MAP) 145/116 (126) 145/116 (126) Pulse Ox 100 100 O2 Delivery Room Air (AMAN ROBERTSON MD) Departure Communication (Admissions) Offered her a prescription of Robaxin muscle relaxers but she declines it. (ROMARIO DOWELL APRN) Impression Primary Impression: Back pain Disposition: 01 HOME, SELF-CARE Condition: Stable Departure-Patient Inst. Decision time for Depature: 17:09 (ROMARIO DOWELL APRN) Referrals: NO,LOCAL PHYSICIAN (PCP) Primary Care Physician Patient Instructions: MANAGING YOUR CHRONIC PAIN Add. Discharge Instructions: All discharge instructions reviewed with patient and/or family. Voiced understanding. Scripts Meloxicam, Submicronized (Meloxicam) 10 Mg Capsule 10 MG PO DAILY, #10 CAP Prov: ROMARIO DOWELL APRN 03/30/21 Attending physician statement: I was physically present as attending physician in the emergency department during the care of this patient, but I was not directly involved in this patient's care or in the decision making of this patient's case. (AMAN ROBERTSON MD) ROMARIO DOWELL APRN Mar 30, 2021 17:10 AMAN ROBERTSON MD Mar 30, 2021 20:20
[2021-03-30] MEDS ORDERED: ORPHENADRINE 60 MG/2 ML (NORFLEX) AMP (ED ONLY) IM ONE (17:15)
[2021-03-30] MEDS ORDERED: KETOROLAC 60 MG/2 ML VIAL IM ONE (17:15)
[2021-03-30 17:50] VITALS: BP 145/116
== END 2021-03-30 17:49 | disposition home or self-care (01) ==
LOC: EDUNIT# 16:49 → ER 16:51
DX: G89.29 Other chronic pain (principal); M54.5 Low back pain; I10 Essential (primary) hypertension; K21.9 Gastro-esophageal reflux disease without esophagitis; F41.9 Anxiety disorder, unspecified; E66.01 Morbid (severe) obesity due to excess calories; Z68.43 Body mass index [BMI] 50.0-59.9, adult; Z87.891 Personal history of nicotine dependence; Z79.899 Other long term (current) drug therapy; Z79.891 Long term (current) use of opiate analgesic
CPT/HCPCS: 99284

== ENCOUNTER 2021-08-06 20:51 | Emergency (ER) | payer MEDICARE, MEDICAID ==
[~2021-08-06] VITALS: Ht 175 cm; Wt 156.0 kg
[~2021-08-06 20:51] MED LIST changes: +MELO10CA3 PO
[2021-08-06] MEDS ORDERED: CEPH500T PO (21:22)
[2021-08-06] MEDS ORDERED: CEPHALEXIN 250 MG (KEFLEX) CAP PO STA (21:23)
--- NOTE | 2021-08-06 21:23 | ED Integumentary General ---
General Stated Complaint: R LEG DISCOLORATION/SWELLING Source: patient Exam Limitations: no limitations History of Present Illness Date Seen by Provider: Aug 06, 2021 Time Seen by Provider: 21:05 Initial Comments 46-year-old female coming in due to redness in her right lower extremity that she noticed earlier today. She does have some burning sensation associated with it that is mild to moderate and constant. Nothing seems to make it better or worse. She has never had these symptoms before. Denies any fever, chest pain, shortness of breath, asymmetrical swelling of her legs, or any other concerns. She does take a water pill which she has not taken in quite a while, and does have some symmetrical swelling in her legs which she expects. Allergies and Home Medications Allergies Coded Allergies: Iodinated Contrast Media (Verified Allergy, Unknown, 07/12/19) aspirin (Verified Allergy, Unknown, 07/12/19) clindamycin (Verified Allergy, Unknown, 07/12/19) tizanidine (Verified Allergy, Unknown, 01/17/20) Patient Home Medication List Home Medication List Reviewed: Yes Alprazolam (Xanax) 0.5 Mg Tablet, 0.5 MG PO BID PRN for ANXIETY Prescribed by: AMAN DRISCOLL on 04/17/20 0055 Buspirone HCl (Buspirone HCl) 15 Mg Tablet, (Reported) Entered as Reported by: DEBRA QUINTANILLA on 05/17/202330 Duloxetine HCl (Duloxetine HCl) 30 Mg Capsule., (Reported) Entered as Reported by: DEBRA QUINTANILLA on 05/17/202330 Famotidine (Acid Sheet [employer] (FAMOTIDINE)) 20 Mg Tablet, 20 MG PO BID Prescribed by: JOSIE DEAL on 11/01/192107 Lisinopril/Hydrochlorothiazide (Lisinopril-Hctz 20-25 mg Tab) 1 Each Tablet, (Reported) Entered as Reported by: DEBRA QUINTANILLA on 05/17/202330 Meloxicam, Submicronized (Meloxicam) 10 Mg Capsule, 10 MG PO DAILY Prescribed by: ROMARIO DOWELL on 03/30/21 1710 Oxycodone HCl/Acetaminophen (Oxycodone-Acetaminophen 10-325) 1 Each Tablet, (Reported) Entered as Reported by: DEBRA QUINTANILLA on 8/5/20 2331 Review of Systems Review of Systems Constitutional: No chills, No fever EENTM: No blurred vision Respiratory: No cough, No short of breath Cardiovascular: No chest pain Gastrointestinal: No abdominal pain, No diarrhea, No nausea, No vomiting Genitourinary: no symptoms reported Musculoskeletal: no symptoms reported Skin: rash Psychiatric/Neurological: No Symptoms Reported Endocrine: No Symptoms Reported Hematologic/Lymphatic: No Symptoms Reported All Other Systems Reviewed Negative Unless Noted: Yes Past Sbaavpv-Kvoavb-Xpylqh Hx Patient Social History Tobacco Use?: No Substance use?: Yes Substance type: Marijuana Alcohol Use?: No Immunizations Up To Date Tetanus Booster (TDap): Unknown PED Vaccines UTD: Yes Seasonal Allergies Seasonal Allergies: No Past Medical History Surgeries: Yes (LAP BAND; BACK SURGERY X 3 WITH WOUND DEBRIDEMENTS OF SURGICAL SITE) Abdominal, Section, Ear Surgery, Gallbladder, Orthopedic, Tonsillectomy Respiratory: No Cardiac: Yes Hypertension Neurological: No Genitourinary: Yes Kidney Stones Gastrointestinal: Yes Gastroesophageal Reflux Musculoskeletal: Yes (CHRONIC KNEE PAIN; BACK SURGERY X 3) Arthritis, Chronic Back Pain Endocrine: Yes (MORBID OBESITY) HEENT: Yes (DENTAL CARIES) Chronic Ear Infection, Tonsilitis Cancer: No Psychosocial: Yes Anxiety Integumentary: Yes (TATTOOS) Blood Disorders: No Family Medical History PAST SURGICAL HISTORY: -GASTRIC BYPASS AND HERNIA REPAIR 01/29/[address] LAO AT [facility] -PREVIOUS LAP BAND SURGERY -BACK SURGERY X 3 WITH DEBRIDEMENTS OF SURGICAL SITE -CHOLECYSTECTOMY - -BILATERAL MYRINGOTOMY TUBES -TONSILLECTOMY Physical Exam Vital Signs Capillary Refill : General Appearance: WD/WN, no apparent distress HEENT: PERRL/EOMI, normal ENT inspection, pharynx normal Neck: non-tender, full range of motion, supple, normal inspection Cardiovascular: regular rate, rhythm, no edema, no murmur Respiratory: chest non-tender, lungs clear, normal breath sounds, no respiratory distress, no accessory muscle use Gastrointestinal: normal bowel sounds, non tender, soft; No distended, No guarding, No rebound Back: normal inspection, no CVA tenderness, no vertebral tenderness Extremities: normal range of motion, non-tender, normal inspection, no pedal edema, no calf tenderness, normal capillary refill Neurologic/Psychiatric: no motor/sensory deficits, alert, normal mood/affect Skin: normal color, warm/dry Skin Problem Location: lower extremities (Small area of erythema to the anterior aspect of the right wooten, blanching, macular, Nikolsky negative, no pain with calf squeeze, negative Homans' sign) Lymphatic: no adenopathy Progress/Results/Core Measures Progress Progress Note : Progress Note 46-year-old female with above history coming in due to a rash in her right lower extremity. ABCs were intact and vitals were stable on presentation. Physical exam with some small areas of erythema in the right anterior wooten which is asymmetric to the other side and to me appears like early cellulitis. This is complicated because she has an extensive tattoo in her right lower extremity which has some red coloring to it as well. I lean towards this being early cellulitis. She has no signs of DVT and no pain with squeezing and no asymmetric swelling. We will give her Keflex and a prescription for it. I recommend that she follows up with her PCP in the next couple days. She has been discharged home in stable condition with strict return precautions. Departure Impression Primary Impression: Cellulitis Qualified Codes: L03.115 - Cellulitis of right lower limb Disposition: HOME, SELF-CARE Condition: Stable Departure-Patient Inst. Referrals: NO,LOCAL PHYSICIAN (PCP/Family) Primary Care Physician Patient Instructions: Cellulitis (Skin Infection), Adult ED Add. Discharge Instructions: You are seen in the emergency department for redness and pain in your right lower extremity. This looks to me to be more of an infection and does not really look like a blood clot. We will start you on some antibiotics. Continue to monitor it, and if the redness starts spreading up your leg then I want you to see your primary care doctor sooner. If you start having significant swelling in that leg where it is a lot larger than the other side as well then I would want you to come to the ER. I sent an antibiotic to your pharmacy. It is possible that these are normal skin changes as well which can occur with aging as well as when people have fluid on the legs. Scripts Cephalexin (Cephalexin) 500 Mg Tablet 500 MG PO QID for 7 Days, #35 TAB Prov: SHORTY MOTA MD 08/06/21 SHORTY MOTA MD Aug 06, 2021 21:22
[2021-08-06 22:15] VITALS: BP 160/97
== END 2021-08-06 21:37 | disposition home or self-care (01) ==
LOC: EDUNIT# 20:51 → ER 20:53
DX: L03.115 Cellulitis of right lower limb (principal); I10 Essential (primary) hypertension; K21.9 Gastro-esophageal reflux disease without esophagitis; F41.9 Anxiety disorder, unspecified; E66.01 Morbid (severe) obesity due to excess calories; G89.29 Other chronic pain; M54.9 Dorsalgia, unspecified; Z79.899 Other long term (current) drug therapy; Z79.891 Long term (current) use of opiate analgesic
CPT/HCPCS: 99283

== ENCOUNTER 2022-08-06 20:22 | Emergency (ER) | payer MEDICARE, MEDICAID ==
[~2022-08-06] VITALS: Ht 175 cm; Wt 122.7 kg
[~2022-08-06 20:22] MED LIST changes: +CEPH500T PO; +CYCL10TA25 PO; -CYCL10TA9 PO; -LISI1TAB26; +LISI1TAB48
[2022-08-06] MEDS ORDERED: TRIM/SULFAMETH 160/800 (SEPTRA DS) TAB PO ONE (20:45)
--- NOTE | 2022-08-06 20:46 | ED Lower Extremity ---
General Chief Complaint: Lower Extremity Stated Complaint: R LEG SWOLLEN,RED,BURNING Source: patient Exam Limitations: no limitations History of Present Illness Date Seen by Provider: Aug 06, 2022 Time Seen by Provider: 20:30 Initial Comments Patient is a 47-year-old right distal leg swelling pain and tenderness and rash starting yesterday. History of MRSA. No fever chills nausea vomiting or sweats. No calf pain, tenderness, chest pain shortness of breath. No other acute symptoms or complaints. Patient is nondiabetic. Onset: this morning Severity: mild Pain/Injury Location: right leg Method of Injury: other Modifying Factors: Improves With Other Allergies and Home Medications Allergies Coded Allergies: Iodinated Contrast Media (Verified Allergy, Unknown, 07/12/19) aspirin (Verified Allergy, Unknown, 07/12/19) clindamycin (Verified Allergy, Unknown, 07/12/19) tizanidine (Verified Allergy, Unknown, 01/17/20) Patient Home Medication List Home Medication List Reviewed: Yes Alprazolam (Xanax) 0.5 Mg Tablet, 0.5 MG PO BID PRN for ANXIETY Prescribed by: AMAN DRISCOLL on 04/17/20 0055 Buspirone HCl (Buspirone HCl) 15 Mg Tablet, (Reported) Entered as Reported by: DEBRA QUINTANILLA on 05/17/202330 Cephalexin (Cephalexin) 500 Mg Tablet, 500 MG PO QID Prescribed by: SHORTY MOTA on 08/06/212121 Duloxetine HCl (Duloxetine HCl) 30 Mg Capsule., (Reported) Entered as Reported by: DEBRA QUINTANILLA on 05/17/202330 Famotidine (Acid [employer] (FAMOTIDINE)) 20 Mg Tablet, 20 MG PO BID Prescribed by: JOSIE DEAL on 11/01/192107 Lisinopril/Hydrochlorothiazide (Lisinopril-Hctz 20-25 mg Tab) 1 Each Tablet, (Reported) Entered as Reported by: DEBRA QUINTANILLA on 05/17/202330 Meloxicam, Submicronized (Meloxicam) 10 Mg Capsule, 10 MG PO DAILY Prescribed by: ROMARIO DOWELL on 03/30/21 1710 Oxycodone HCl/Acetaminophen (Oxycodone-Acetaminophen 10-325) 1 Each Tablet, (Reported) Entered as Reported by: DEBRA QUINTANILLA on 05/17/20 7301 Review of Systems Constitutional: see HPI Respiratory: see HPI Cardiovascular: see HPI Musculoskeletal: see HPI Skin: see HPI Past Doxavkv-Ssvkro-Eooqzw Hx Patient Social History Tobacco Use?: No Immunizations Up To Date Tetanus Booster (TDap): Unknown PED Vaccines UTD: Yes First/Initial COVID19 Vaccinat: May 2021 Second COVID19 Vaccination Jose Alejandro: May 2021 Seasonal Allergies Seasonal Allergies: No Past Medical History Surgeries: Yes (LAP BAND; BACK SURGERY X 3 WITH WOUND DEBRIDEMENTS OF SURGICAL SITE) Abdominal, Section, Ear Surgery, Gallbladder, Orthopedic, Tonsillectomy Respiratory: No Cardiac: Yes Hypertension Neurological: No Genitourinary: Yes Kidney Stones Gastrointestinal: Yes Gastroesophageal Reflux Musculoskeletal: Yes (CHRONIC KNEE PAIN; BACK SURGERY X 3) Arthritis, Chronic Back Pain Endocrine: Yes (MORBID OBESITY) HEENT: Yes (DENTAL CARIES) Chronic Ear Infection, Tonsilitis Cancer: No Psychosocial: Yes Anxiety Integumentary: Yes (TATTOOS) Blood Disorders: No Family Medical History PAST SURGICAL HISTORY: -GASTRIC BYPASS AND HERNIA REPAIR 01/29/[address] LAO AT [place] -PREVIOUS LAP BAND SURGERY -BACK SURGERY X 3 WITH DEBRIDEMENTS OF SURGICAL SITE -CHOLECYSTECTOMY - -BILATERAL MYRINGOTOMY TUBES -TONSILLECTOMY Physical Exam Vital Signs Capillary Refill : Height, Weight, BMI Height: '" Weight: lbs. oz. kg; 50.00 BMI Method: General Appearance: WD/WN, no apparent distress Legs: right leg pain, right leg soft tissue tenderness, right leg other (mild cellultis to distal R medial leg/ankle.) Progress/Results/Core Measures Results/Orders My Orders Orders - MARTIN GARCIA DO Sulfamethoxazole/Trimet Ds Tab (Bactrim (08/06/22 20:45) Departure Impression Primary Impression: Cellulitis of right leg without foot Disposition: HOME, SELF-CARE Condition: Stable Departure-Patient Inst. Decision time for Depature: 20:44 Referrals: NO,LOCAL PHYSICIAN (PCP/Family) Primary Care Physician Patient Instructions: Cellulitis (Skin Infection), Adult (DC) Add. Discharge Instructions: Right leg cellulitis without secondary symptoms. First dose of antibiotics given. Recommendations are watchful waiting, supportive and therapeutic care with PCP follow-up. All discharge instructions reviewed with patient and/or family. Voiced understanding. Scripts Mupirocin (Mupirocin) 2 % Oint...g. 22 GM TP TID, #15 EA Prov: MARTIN GARCIA DO 08/06/22 Sulfamethoxazole/Trimethoprim (Bactrim Ds Tablet) 1 Each Tablet 1 EACH PO BID, #20 TAB Prov: MARTIN GARCIA DO 08/06/22 Work/School Note: Family Work Note Patient Received Medical Care In the Emergency Department On: Aug 06, 2022 Patient Will Be Able to Return to Work/School On: Aug 08, 2022 MARTIN GARCIA DO Aug 06, 2022 20:46
[2022-08-06] MEDS ORDERED: MUPI22OI2 TP (20:47)
[2022-08-06] MEDS ORDERED: SULF1TAB38 PO (20:47)
[2022-08-06 20:56] VITALS: BP 151/99
== END 2022-08-06 20:57 | disposition home or self-care (01) ==
LOC: EDUNIT# 20:22 → ER 20:25
DX: L03.115 Cellulitis of right lower limb (principal); E66.01 Morbid (severe) obesity due to excess calories; Z68.43 Body mass index [BMI] 50.0-59.9, adult
CPT/HCPCS: 99281